=== PATIENT | female | born 1935 | race Caucasian/White ===

== ENCOUNTER 2016-06-19 12:29 | Inpatient (IN) | payer OTHER ==
--- NOTE | 2016-06-19 12:49 | CPEKG ---
Heart Rate: 88 RR Interval: 682 P-R Interval: 152 QRSD Interval: 90 QT Interval: 360 QTC Interval: 436 P [place]: 80 QRS [place]: 59 T Wave [place]: 78 EKG Severity - ABNORMAL ECG - EKG Impression: SINUS RHYTHM EKG Impression: PROBABLE LEFT ATRIAL ABNORMALITY EKG Impression: PROBABLE LEFT VENTRICULAR HYPERTROPHY EKG Impression: ANTERIOR Q WAVES, POSSIBLY DUE TO LVH Electronically Signed By: Ebenezer Javier 19-Jun-2016 14:51:06
--- NOTE | 2016-06-19 12:59 | EDPHY ---
HPI/HX/ROS/PE/MDM Narrative: CHIEF COMPLAINT: Cough HPI: The patient is an 80-year-old female with paroxysmal atrial fibrillation and chronic lung disease. She reports feeling "sick" over last 2 weeks. She recently returned from a trip to [place] involved a long ride in the car. Her normal cough is nonproductive and she has developed mostly clear productive cough. She denies fever or chest pain. She has noticed increased oxygen requirements to her normal to 2L at baseline. She denies leg swelling or pain. REVIEW OF SYSTEMS: Aside from elements discussed in the HPI, a comprehensive 10-point review of systems was reviewed and is negative. PMH: Includes macular degeneration, paroxysmal atrial fibrillation, chronic lung disease. Takes 2 baby aspirin daily. SOCIAL HISTORY: Retired. . Denies alcohol or drug abuse. PHYSICAL EXAM: General:Patient is alert, in no acute distress. ENT:Eyes are normal to inspection. ENT inspection normal. Neck: Normal inspection. Full range of motion. Respiratory:No respiratory distress. Breath sounds diminished bilaterally with bilateral scattered rhonchi. Cardiovascular: Regular rate and rhythm. Strong peripheral pulses. Normal cap refill. Abdomen:The abdomen is nontender to palpation. There are no peritoneal signs. There are normal bowel sounds. Back: Normal to inspection. No tenderness to palpation. Skin: Normal color. No rash. Warm and dry. Extremities: Normal appearance. Full range of motion. Neuro: Oriented x3. Normal motor function. Normal sensory function. (Ebenezer Javier) MDM: Received the patient's CT scan. There are no acute findings but significant fibrosis, bronchiectasis and mucous plugging all chronic changes. No PE. No pneumonia. I discussed this with the patient and her pillar well as in the she had several episodes of atrial fibrillation with heart rate 140s. She is not on any blood thinners. She was told not to take the new generation blood thinners because of her macular degeneration. She is not opposed to taking Coumadin however. She states that she does not usually have atrial fibrillation very often. She is on Rythmol 150 3 times a day as well as diltiazem 24 mg extended release. She is requiring 4 L of oxygen rather than her baseline 2 L. I will give her a breathing treatment. She has taken her albuterol and Advair already today. I have paged the hospitalist service for admission. She sees Dr. Bon Cohen for Cardiology. For p.m. I discussed the case with Dr. Loraine Loving who will admit to the PCU. I will start the patient on heparin. Critical care time spent by me, Dr. Carter exclusive with this patient was 35 minutes, DuoNeb exclusive of procedures. The organ system that was at risk was cardiopulmonary and I gave consultation, heparin, oxygen to prevent worsening of the patient's condition (Carlos Eduardo Carter) This patient presents with increasing cough and oxygen requirement in the setting of known chronic lung disease. Given recent long car trip, PE is in the differential and CXR is difficult to interpret, so I have ordered a CTA of the chest. Patient signed out to Dr. Carter at 1500 pending completion of workup. (Ebenezer Javier) - Data Points Laboratory Results: Laboratory Results 06/19/16 13:05 06/19/16 13:05 06/19/16 06/19/16 13:05 13:05 WBC 7.72 10^3/uL 10^3/uL (3.80-9.50) RBC 3.80 10^6/uL L 10^6/uL (4.18-5.33) Hgb 12.1 g/dL L g/dL (12.6-16.3) Hct 35.6 % L % (38.0-47.0) MCV 93.7 fL fL (81.5-99.8) MCH 31.8 pg pg (27.9-34.1) MCHC 34.0 g/dL g/dL (32.4-36.7) RDW 14.4 % % (11.5-15.2) Plt Count 225 10^3/uL 10^3/uL (150-400) MPV 8.8 fL fL (8.7-11.7) Neut % (Auto) Not Reported Lymph % (Auto) Not Reported [place] % (Auto) Not Reported Eos % (Auto) Not Reported Baso % (Auto) Not Reported Nucleat RBC Rel Count 0.0 % % (0.0-0.2) Absolute Neuts (auto) Not Reported Absolute Lymphs (auto) Not Reported Absolute Monos (auto) Not Reported Absolute Eos (auto) Not Reported Absolute Basos (auto) Not Reported Absolute Nucleated RBC 0.00 10^3/uL 10^3/uL (0-0.01) Immature Gran % Not Reported Seg Neutrophils % 58 % % Band Neutrophils % 12 % % Lymphocytes % 13 % % Monocytes % 13 % % Eosinophils % 1 % % Metamyelocytes % 1 % % Myelocytes % 2 % % Immature Gran # Not Reported Absolute Seg Neuts 4.48 10^/uL 10^/uL (1.70-6.50) Absolute Band Neuts 0.93 10^3/uL H 10^3/uL (0.00-0.70) Absolute Lymphocytes 1.00 10^3/uL 10^3/uL (1.00-3.00) Absolute Monocytes 1.00 10^3/uL H 10^3/uL (0.30-0.80) Absolute Eosinophils 0.08 10^3/uL 10^3/uL (0.03-0.40) Absolute Metamyelocyte 0.08 10^3/mL H 10^3/mL (0.00-0.00) Absolute Myelocytes 0.15 10^3/mL H 10^3/mL (0.00-0.00) RBC/WBC/PLT Morphology NORMAL (NORMAL) Platelet Estimate ADEQUATE (ADEQ) Smear Review By Pending Sodium 132 mEq/L L mEq/L (134-144) Potassium 4.7 mEq/L mEq/L (3.5-5.2) Chloride 86 mEq/L L mEq/L (97-110) Carbon Dioxide 36 mEq/l H mEq/l (22-31) Anion Gap 10 mEq/L mEq/L (8-16) BUN 11 mg/dL mg/dL (7-23) Creatinine 0.4 mg/dL L mg/dL (0.6-1.0) Estimated GFR > 60 Glucose 119 mg/dL H mg/dL (70-100) Calcium 9.2 mg/dL mg/dL (8.5-10.4) Troponin I < 0.012 ng/mL ng/mL (0-0.034) Medications Given: Discontinued Medications Albuterol/Ipratropium (Duoneb) 3 ml IH EDNOW ONE Stop: 06/19/16 15:40 Last Admin: 06/19/16 15:58 Dose: 3 ml Diltiazem HCl (Cardizem Immediate Release) 30 mg PO EDNOW ONE Stop: 06/19/16 15:40 Last Admin: 06/19/16 15:58 Dose: 30 mg General Time Seen by Provider: 06/19/16 12:41 Initial Vital Signs: Initial Vital Signs Temperature (C) 36.8 C 06/19/16 12:48 Heart Rate 88 06/19/16 12:48 Respiratory Rate 12 06/19/16 12:48 Blood Pressure 125/54 H 06/19/16 12:48 O2 Sat (%) 99 06/19/16 12:48 O2 Delivery Mode Nasal Cannula O2 (L/minute) 4 Allergies/Adverse Reactions: No Known Allergies Allergy (Verified 06/19/16 12:51) Home Medications: Medication Instructions Recorded Albuterol [Proventil Inhaler (RX)] 2 puffs IH BID PRN 09/23/11 Aspirin [Aspirin 81mg (OTC)] 162 mg PO HS 09/23/11 C/E/Zn/Cu/OM3/DHA/EPA/LUT/ZEAX 2 each PO DAILY 09/23/11 [Preservision Softgel (OTC)] Calcium Carb W/Vit D [Calcium Carb 1,000 mg PO DAILY 09/23/11 W/Vit D 500 mg (OTC)] Ferrous Sulfate [Ferrous Sulf 325 325 mg PO DAILY 09/23/11 MG (OTC)] Fluticasone/Salmeterol [Advair 1 each IH DAILY PRN 09/23/11 250-50 Diskus] Latanoprost 0.005% [Xalatan 0.005% 1 drop EACHEYE DAILY18 09/23/11 (RX)] Magnesium 250 mg PO DAILY 09/23/11 Multivitamins [Multivitamin (OTC)] 1 each PO DAILY 09/23/11 Propafenone HCl [Rythmol 150mg 150 mg PO Q8H 09/23/11 (RX)] Diltiazem HCl [Diltiazem 24Hr Cd] 240 mg PO DAILY 07/18/12 Omeprazole [Prilosec 20 mg] 20 mg PO DAILY 07/18/12 Aflibercept [Eylea] 2 mg IO AD 06/19/16 Amox Tr/K Clav (Augmentin) 500 mg PO BID 06/19/16 [Augmentin 500/125 MG TAB (*)] Doxycycline Hyclate [Doxycycline 100 mg PO BID 06/19/16 Hyclate] Estrogens,Conjugated [Premarin 1 daniel VAG SUTH 06/19/16 Vaginal (*)] Fluticasone/Salmeter 250/50Mcg 1 puffs IH BID 06/19/16 [Advair 250/50 (*)] Herbals/Supplements -Info Only 1 ea PO DAILY 06/19/16 Hydrocodone Bit/Homatropine 5 - 10 ml PO DAILY PRN 06/19/16 [Hydromet Syrup] Losartan Potassium [Cozaar 50 mg 50 mg PO DAILY 06/19/16 (*)] Sulfamethox/Tmp 800/160 mg 1 tab PO BID 06/19/16 [Bactrim Ds] Vitamin D3 2000 units tab (OTC) 2,000 unit PO DAILY 06/19/16 Zoledronic Acid/Mannitol&Water 5 mg IV Q365D 06/19/16 [Zoledronic Acid 5 mg/100 ml] Departure - Departure Disposition: [facility] Acute Clinical Impression: Chronic obstructive pulmonary disease with acute exacerbation Atrial fibrillation Qualifiers: Atrial fibrillation type: paroxysmal Qualified Code(s): I48.0 - Paroxysmal atrial fibrillation Condition: Fair
[2016-06-19 13:19] LABS: ADD DIFF? YES; ADD MORPH? NO; ADD SCAN? NO; ATYPICAL LYMPHOCYTE FLAG 20 (0-99); FRAGMENT RBC FLAG 0 (0-99); HEMATOCRIT 35.6 % (38.0-47.0); HEMOGLOBIN 12.1 g/dL (12.6-16.3); LEFT SHIFT FLG 30 (0-99); LIPEMIA HEMOLYSIS FLAG 90 (0-99); MEAN CELL HEMOGLOBIN 31.8 pg (27.9-34.1); MEAN CELL VOLUME 93.7 fL (81.5-99.8); MEAN PLATELET VOLUME 8.8 fL (8.7-11.7); PLATELET CLUMPS FLAG 10 (0-99); PLATELET COUNT 225 10^3/uL (150-400); RED CELL DISTRIBUTION WIDTH 14.4 % (11.5-15.2)
[2016-06-19 13:30] LABS: ANION GAP 10 mEq/L (8-16); CALCIUM 9.2 mg/dL (8.5-10.4); CARBON DIOXIDE 36 mEq/l (22-31); CHLORIDE 86 mEq/L (97-110); CREATININE 0.4 mg/dL (0.6-1.0); GLOMERULAR FILTRATION RATE > 60; GLUCOSE 119 mg/dL (70-100); POTASSIUM 4.7 mEq/L (3.5-5.2); SODIUM 132 mEq/L (134-144)
[2016-06-19 13:41] LABS: TROPONIN I < 0.012 ng/mL (0-0.034)
[2016-06-19] MEDS ORDERED: IOPAMIDOL (ISOVUE 370) 100 ML BTL IV ONE (14:15)
[2016-06-19 14:22] LABS: PLATELET ESTIMATE ADEQUATE (ADEQ)
[2016-06-19] MEDS ORDERED: DILTIAZEM 30 MG TAB PO ONE (15:39)
[2016-06-19] MEDS ORDERED: IPRATROPIUM/ALBUTEROL 3 ML DEYVIAL IH ONE (15:39)
[2016-06-19] MEDS ORDERED: HEPARIN/DEXTROSE 500 ML IV ONE (15:59)
[2016-06-19] MEDS ORDERED: HEPARIN 10,000 UNIT/10 ML MDV IVP ONE (15:59)
[2016-06-19] MEDS ORDERED: ALBUTEROL 3 ML DEYVIAL IH PRN (17:01)
[2016-06-19] MEDS ORDERED: ONDANSETRON 4 MG/2 ML VIAL IVP PRN (17:01)
[2016-06-19] MEDS ORDERED: ONDANSETRON DISINTEGRATING 4 MG TAB PO PRN (17:01)
[2016-06-19] MEDS ORDERED: ACETAMINOPHEN 325 MG TAB PO PRN (17:01)
[2016-06-19] MEDS ORDERED: predniSONE 20 MG TAB PO ONE (17:10)
[2016-06-19 17:23] LABS: INR 1.11 (0.83-1.16); PROTIME(PATIENT) 14.2 SEC (12.0-15.0)
[2016-06-19 17:24] LABS: APTT 30.3 SEC (23.0-38.0)
[2016-06-19] MEDS ORDERED: DILTIAZEM 125 MG in D5W 125 ML IV SCH (17:30)
[2016-06-19] MEDS ORDERED: DILTIAZEM 25 MG/5 ML VIAL IVP ONE (17:30)
[2016-06-19 17:32] LABS: TROPONIN I < 0.012 ng/mL (0-0.034)
--- NOTE | 2016-06-19 17:58 | GHP ---
[f rep st] HISTORY AND PHYSICAL DATE OF ADMISSION: 06/19/2016 CHIEF COMPLAINT: Worsening cough and hypoxemia. HISTORY OF PRESENT ILLNESS: The patient is an 80-year-old female, with a history of chronic hypoxemia on 2 L of oxygen at baseline, followed by Dr. Bhaskar Barfield for a history of pulmonary fibrosis, bronchiectasis and mycobacterium avium infection. She has been on a rotating antibiotic regimen and spent the last month in [place]. While she was there her developed an acute bronchitis illness. She then began feeling more fatigued and developed an increased productive cough. She denies fevers. She denies chest pain. Her shortness of breath is slightly worse than her baseline. She has no heart palpitations upon arrival to the emergency department, though she has been in and out of rapid atrial fibrillation. She denies any history of exposure to mouse droppings, and remained indoors most of her time in [place] due to extreme heat. She was ruled out for pulmonary embolism in the emergency department with a CT pulmonary angiogram. She is on 4 L of oxygen due to her increased oxygen needs, productive cough, and rapid atrial fibrillation. She is admitted to the hospital for further management. PAST MEDICAL HISTORY: 1. Bronchiectasis. 2. History of Mycobacterium avium intracellulare. followed by Dr. Bhaskar Barfield. 3. Pulmonary fibrosis. 4. Pulmonary hypertension. 5. Hypertension. 6. Hyperlipidemia. 7. Atrial fibrillation. 8. Macular degeneration. 9. Hiatal hernia. PAST SURGICAL HISTORY: Appendectomy, hernia repair, hysterectomy, tonsillectomy. FAMILY HISTORY: Positive for blood clots, atrial fibrillation, breast cancer, and coronary artery disease. SOCIAL HISTORY: The patient lives with her . They spent the month of May in [place] and returned last night. She denies alcohol or tobacco use. She is currently independent in her daily activities, though with her decreased energy these have become more difficult recently. REVIEW OF SYSTEMS: A 10-point review of systems is performed, and is negative except as per HPI. OBJECTIVE: VITAL SIGNS: Temperature is 36.8, blood pressure 125/54, heart rate 88, respiratory rate 12 to 20, she is 99% on 4 L of oxygen. Her heart rate has ranged from the 80s to the 160s, in and out of atrial fibrillation. GENERAL: The patient is awake, alert and oriented, in no acute distress. HEENT : Head is atraumatic, normocephalic. Pupils are equal, round and reactive to light, extraocular muscles are intact, oropharynx is clear. She has poor dentition. Mucous membranes are moist. NECK: Supple, there is no JVD. HEART : Has an irregularly irregular rhythm. LUNGS: Reveal scattered crackles on the left side with bilateral diffuse expiratory wheezes. ABDOMEN: Soft, nondistended, nontender, with normoactive bowel sounds. EXTREMITIES: Without cyanosis, clubbing, or edema. Warm, well perfused. NEUROLOGIC: Grossly nonfocal. LABORATORY DATA: 1. CBC reveals a normal white count of 7.7, hemoglobin of 12.1, INR is pending. Basic metabolic panel reveals a sodium of 132, potassium 4.7, chloride 86, CO2 of 36, creatinine is 0.4, glucose 119, troponin is negative. NT proBNP is pending. 2. A chest x-ray shows little change from prior imaging, with no obvious acute pneumonia. Her chest x-ray is personally interpreted by myself, and I reviewed the radiology report. 3. A CT pulmonary angiogram is negative for pulmonary embolism. There is a stable-appearing bronchiectasis, as well as chronic consolidation and atelectasis with a thick wall honeycomb pattern. 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 4. EKG upon arrival to the emergency department shows normal sinus rhythm with a heart rate of 88, and anterior Q-waves. A repeat EKG, due to current rapid atrial fibrillation, is pending. ASSESSMENT AND PLAN: The patient is an 80-year-old female with a history of chronic hypoxemic respiratory failure due to underlying lung disease, who is admitted to the hospital with worsening hypoxemia and atrial fibrillation. 1. Acute on chronic hypoxemic respiratory failure. Requiring 4 L from her baseline of 2 LPM. No fevers or leukocytosis to suggest an acute bacterial process. Query a viral syndrome causing an acute exacerbation of bronchiectasis , versus worsening Mycobacterium illness. Check flu swab, as well as a respiratory viral panel. Given her recent travel in [place] I considered Hantavirus, though she has no real exposure to mouse droppings. Will check Coccidioides Ab. Will give nebulizers and oral prednisone, given her diffuse expiratory wheezes. Recommend pulmonary consult tomorrow. Given the mucus plugging seen on her CT scan I will add inhaled Mucomyst, as well as guaifenesin. She is currently treated with rotating antibiotic regimen including Augmentin, Bactrim and doxycycline. We will give oral doxycycline for now. 2. Atrial fibrillation with rapid ventricular rate. She has been in and out of rapid atrial fibrillation in the ED, and had a sustained heart rate in the 150s during my interview. She is asymptomatic. I do not see a recent echocardiogram, so we will obtain an echo. She has a CHADS2-VASc score of at least 4 her based on her age, gender, and hypertension. We will anticoagulate with a heparin drip for now. Her initial troponin is negative, will trend her troponin. She is chest pain-free. We will also continue her Rythmol. She is given an IV diltiazem bolus, and we will place her on a drip for rate control. Consider addition of digoxin if this is not adequately controlling her rate. 3. Hypertension. Her blood pressure is currently adequately controlled. We will continue her outpatient medications once her medication reconciliation is completed. 4. Hyponatremia. This is mild, and is not far from her baseline in the low 130s. She appears a bit volume depleted. We will check a urine sodium and a urine osmolality for further evaluation, and I will give some very gentle IVF's overnight, as I do not want to hasten heart failure in the setting of rapid atrial fibrillation. 5. Deep venous thrombosis prophylaxis, patient is treated with heparin drip as above. 6. Code status. I discussed code status with the patient, and she is full code for now. DISPOSITION: Patient is admitted to inpatient status, as she will likely require greater than 48 hours hospitalization for ongoing management of her acute on chronic hypoxemic respiratory failure and rapid atrial fibrillation. /[id number]/MODL MTDD
[2016-06-19] MEDS: ACETYLCYSTEINE 10% 30 ML VIAL IH SCH ×2 (18:24→21:38)
[2016-06-19] MEDS: HEPARIN/DEXTROSE 500 ML IV SCH (18:28)
--- NOTE | 2016-06-19 18:51 | CPEKG ---
Heart Rate: 120 RR Interval: 500 QRSD Interval: 88 QT Interval: 336 QTC Interval: 475 QRS [place]: 64 T Wave [place]: 76 EKG Severity - ABNORMAL ECG - EKG Impression: ATRIAL FIBRILLATION--NEW SINCE JUNE 19, 2016, 12:48 EKG Impression: CONSIDER LEFT VENTRICULAR HYPERTROPHY EKG Impression: ANTERIOR Q WAVES, POSSIBLY DUE TO LVH Electronically Signed By: Dwaine Dale 20-Jun-2016 08:25:44
[2016-06-19] MEDS ORDERED: NON-FORMULARY NEW DRUG (Aflibercept [Eylea] 2 MG) IO SCH ×2 (19:00)
[2016-06-19] MEDS: NS 1,000 ML IV SCH (19:04)
[2016-06-19] MEDS: guaiFENesin 600 MG TAB.ER PO SCH (20:08)
[2016-06-19] MEDS: PROPAFENONE HCL 150 MG TAB PO SCH (20:08)
[2016-06-19] MEDS: ASPIRIN 81 MG CHEWABLE TAB PO SCH (20:10)
[2016-06-19] MEDS: DOXYCYCLINE HYCLATE 100 MG CAP/TAB PO SCH (20:10)
[2016-06-19] MEDS: HYDROCODONE/HOMATROPINE HYCODAN 5 ML UDL PO PRN (21:14)
[2016-06-19] MEDS: IPRATROPIUM/ALBUTEROL 3 ML DEYVIAL IH SCH (21:35)
[2016-06-19] MEDS: FLUTICASONE/SALMETER 250/50MCG DISKUS IH SCH (21:40)
[2016-06-20] MEDS: PROPAFENONE HCL 150 MG TAB PO SCH ×3 (03:08→12:34)
[2016-06-20] MEDS: ACETYLCYSTEINE 10% 30 ML VIAL IH SCH ×4 (04:54→21:16)
[2016-06-20] MEDS: IPRATROPIUM/ALBUTEROL 3 ML DEYVIAL IH SCH ×4 (04:54→21:16)
[2016-06-20 06:05] LABS: ADD DIFF? YES; ADD MORPH? NO; ADD SCAN? NO; ATYPICAL LYMPHOCYTE FLAG 20 (0-99); FRAGMENT RBC FLAG 0 (0-99); HEMOGLOBIN 11.1 g/dL (12.6-16.3); LEFT SHIFT FLG 30 (0-99); LIPEMIA HEMOLYSIS FLAG 80 (0-99); MEAN CELL HEMOGLOBIN 31.5 pg (27.9-34.1); MEAN CELL HEMOGLOBIN CONCENTR. 33.6 g/dL (32.4-36.7); MEAN CELL VOLUME 93.8 fL (81.5-99.8); MEAN PLATELET VOLUME 8.3 fL (8.7-11.7); PLATELET CLUMPS FLAG 0 (0-99); PLATELET COUNT 184 10^3/uL (150-400); RED BLOOD CELL COUNT 3.52 10^6/uL (4.18-5.33); RED CELL DISTRIBUTION WIDTH 14.3 % (11.5-15.2)
[2016-06-20 06:52] LABS: PLATELET ESTIMATE ADEQUATE (ADEQ)
[2016-06-20 06:56] LABS: ANION GAP 10 mEq/L (8-16); CALCIUM 8.4 mg/dL (8.5-10.4); CARBON DIOXIDE 32 mEq/l (22-31); CHLORIDE 88 mEq/L (97-110); CREATININE 0.4 mg/dL (0.6-1.0); GLOMERULAR FILTRATION RATE > 60; GLUCOSE 157 mg/dL (70-100); POTASSIUM 4.7 mEq/L (3.5-5.2); SODIUM 130 mEq/L (134-144)
[2016-06-20] MEDS: guaiFENesin 600 MG TAB.ER PO SCH ×2 (08:18→19:58)
[2016-06-20] MEDS: FERROUS SULFATE 325 MG TAB PO SCH (08:18)
[2016-06-20] MEDS: MAGNESIUM OXIDE 400 MG TAB PO SCH (08:19)
[2016-06-20] MEDS: LOSARTAN POTASSIUM 50 MG TAB PO SCH (08:19)
[2016-06-20] MEDS: DOXYCYCLINE HYCLATE 100 MG CAP/TAB PO SCH (08:19)
[2016-06-20] MEDS: PANTOPRAZOLE SODIUM 40 MG TAB PO SCH (08:19)
[2016-06-20] MEDS: DILTIAZEM XR 240 MG CAP PO SCH (08:21)
[2016-06-20] MEDS ORDERED: NON-FORMULARY NEW DRUG (Diltiazem Hcl [Diltiazem 24hr Cd] 240 MG) PO SCH (09:00)
[2016-06-20] MEDS ORDERED: NON-FORMULARY NEW DRUG (Omeprazole [Prilosec 20 Mg] 20 MG) PO SCH (09:00)
[2016-06-20] MEDS ORDERED: MAGNESIUM 250 MG PO SCH (09:00)
--- NOTE | 2016-06-20 10:24 | ECHO ---
[id number] + + [address] : : [place] [address] : : [phone] + Adult Echocardiographic Report + -----+ :Name: MAHAMED ART PStudy Date: 06/20/2016 07:50 AM : : Hospital Admission Number: [id number] Location : 217: :: 1935 Gender: Female Height: 372 in : :Age: 80 yrs Race: WH : :Reason For Study: Atrial fibrillation/lung disease : + -----+ MMode/2D Measurements \T\ Calculations IVSd: 0.97 cm LVIDd: 4.1 cm FS: 49.9 % Ao root diam: LVPWd: 1.0 cm LVIDs: 2.1 cm EDV(Teich): 3.4 cm 76.3 ml LA dimension: ESV(Teich): 3.7 cm 14.1 ml EF(Teich): 81.6 % LVLd ap4: 6.6 cm SV(MOD-sp4): EDV(MOD-sp4): 34.0 ml 44.0 ml LVLs ap4: 5.1 cm ESV(MOD-sp4): 10.0 ml EF(MOD-sp4): 77.3 % Normal Measurement Values: + + :LVIDd (3.5-5.7cm) IVSd (0.6-1.1cm) LVPWd (0.6-1.1cm) Aortic Root (2.0-3.7cm)Left Atrium (1.5-4.0cm): :LV Vol(d) (76-115ml) LV Vol(s) (29-48ml) Ejec Fraction (50-65%)PV Cong (0.6- 1.2m/s) TV Cong (0.4-1.0m/s) : :MV E Cong (0.8-1.0m/s)MV A Cong (0.3-1.0m/s)LVOT Cong (0.7-1.2m/s) Asc Ao Cong ( 0.9-1.8m/s) : + + Doppler Measurements \T\ Calculations MV E max cong: 121.9 cm/sec Ao V2 max: 125.3 cm/sec TR max cong: 309.1 cm/sec Ao max P.3 mmHg TR max P.2 mmHg RAP systole: 10.0 mmHg RVSP(TR): 48.2 mmHg Left Ventricle The left ventricle is normal in size. There is mild concentric left ventricular hypertrophy. Left ventricular systolic function is normal. Ejection Fraction = 70-75%. No regional wall motion abnormalities noted. Right Ventricle The right ventricle is normal in size and function. Atria The left atrium is severely dilated. The right atrium is moderate to severely dilated. Mitral Valve Calcified posterior mitral leaflet. There is mild mitral regurgitation. Tricuspid Valve Normal tricuspid valve. There is mild tricuspid regurgitation. Right ventricular systolic pressure is 45-50mmHg. Aortic Valve The aortic valve is trileaflet. The aortic valve opens well. Mildly calcified NCC of the aortic valve. There is no aortic stenosis. Mild aortic regurgitation. Pulmonic Valve The pulmonic valve is not well visualized. Mild pulmonic valvular regurgitation. Great Vessels The aortic root is normal size. Pericardium/Pleural There is no pericardial effusion. There is a fat pad seen. Conclusion A complete two-dimensional transthoracic echocardiogram was performed (2D, M-mode, Doppler and color flow Doppler). This was essentially a normal study. The study was technically adequate. This degree of valvular regurgitation is within normal limits. (1) Left ventricular systolic ejection fraction was normal (>70%) - normal wall motion (2) Mild, concentric left ventricular hypertrophy (3) Diastolic dysfunction was present (4) Normal right ventricular size and function (5) Severe left atrial dilation with moderate to severe right atrial dilation (6) Mild mitral regurgitation with calcification of the posterior leaflet - no stenosis (7) Trileaflet aortic valve with sclerosis, but no stenosis (NCC leaflet moreso). Mild aortic insufficiency was noted (8) Mild tricuspid regurgitation - RVSP was estimated to be 45-50 mm Hg (9) Poor visualization of the pulmonic valve with mild insufficiency by doppler (10) No comparison echocardiograms Final Reading Physician: Pranav Lucia signed on 06/20/2016 10:23 AM Ordering Physician: Loraine Loving Performed By: Maylin Fontanez RDCS
[2016-06-20] MEDS: FLUTICASONE/SALMETER 250/50MCG DISKUS IH SCH ×2 (10:50→21:18)
--- NOTE | 2016-06-20 11:38 | CPEKG ---
Heart Rate: 49 RR Interval: 1224 QRSD Interval: 118 QT Interval: 476 QTC Interval: 430 QRS [place]: -72 T Wave [place]: 77 EKG Severity - ABNORMAL ECG - EKG Impression: ATRIAL FIBRILLATION, V-RATE 41-56 EKG Impression: INCOMPLETE LEFT BUNDLE BRANCH BLOCK EKG Impression: PROBABLE LEFT VENTRICULAR HYPERTROPHY EKG Impression: SLOW VENTRICULAR RESPONSE Electronically Signed By: Evan Baugh 23-Jun-2016 09:02:35
--- NOTE | 2016-06-20 11:55 | HOSPPROG ---
Hospitalist Progress Note Assessment/Plan: 80-year-old woman with a history of bronchiectasis and SHONDA with chronic respiratory failure followed by Dr. Bhaskar Barfield is admitted with increasing productive cough and shortness of breath. CT angiogram was done which showed no PE but possible increased reticular nodular densities. She was admitted yesterday and has not improved significantly over night. She is concerned about her antibiotics. She typically takes Augmentin week 1, Bactrim week 2 and doxycycline week 3 with no antibiotics week 4. # cough with acute on chronic respiratory failure. Possibly new CT findings on her chronic bronchiectasis and SHONDA infection. She is requiring increased oxygen at 4.5 L. * Pulmonary consult * Will continue doxycycline for now although defer to pulmonology. # AFib with rapid ventricular response. Patient does have a history of previous AFib and is followed by Dr. Cohen. She typically is anticoagulated with 2 baby aspirins and is in sinus rhythm. Echocardiogram was done and was fairly unremarkable. She has been in an out of AFib on telemetry. * Continue heparin for now, in case she needs a bronchoscopy * Currently rate controlled with IV diltiazem * Will have Cardiology see the patient # chronic AAYNNA. Followed by Dr. Bhaskar Barfield as an outpatient, continue her usual antibiotic regimen and last changed by pulmonology. # hyponatremia likely secondary to her pulmonary infection, will follow # hypertension: Well controlled will continue to follow # pulmonary fibrosis # macular degeneration Subjective: Patient new to [place], chart reviewed. Discussed with Dr. Nelson Busby. Patient continues to have productive cough she does not feel significantly improved since admission. She is requiring more oxygen than her usual 2 L home Objective: Vital Signs Temp Pulse Resp BP Pulse Ox 36.8 C 110 H 18 123/85 H 91 L 06/20/16 07:50 06/20/16 07:50 06/20/16 07:50 06/20/16 10:46 06/20/16 07:50 Laboratory Results 06/20/16 05:55 06/20/16 05:55 06/19/16 06/20/16 06/21/16 05:59 05:59 05:59 Intake Total 1291.6 Output Total 600 600 Balance 691.6 -600 PT 14.2 SEC (12.0-15.0) 06/19/16 16:49 INR 1.11 (0.83-1.16) 06/19/16 16:49 - Physical Exam Constitutional: no apparent distress, not in pain, chronically ill appearing Eyes: PERRL, anicteric sclera, EOMI Ears, Nose, Mouth, Throat: moist mucous membranes, hearing normal, ears appear normal Cardiovascular: regular rate and rhythym, No edema Respiratory: no respiratory distress, inspiratory crackles, No expiratory wheeze Gastrointestinal: normoactive bowel sounds, soft, non-tender abdomen, no palpable masses Genitourinary: no bladder fullness Skin: warm, normal color Neurologic: AAOx3, No facial droop Psychiatric: interacting appropriately, not anxious, not encephalopathic ICD10 Worksheet Patient Problems: Problems Problem Status Onset Atrial fibrillation Acute Chronic obstructive pulmonary disease with acute exacerbation Acute
--- NOTE | 2016-06-20 11:58 | SOAPPROG ---
SOAP Progress Note Assessment/Plan: Assessment: Cardiology consultation performed and dictated. Asked to see pt for afib with RVR in setting of hypoxemia from chronic respiratory problems. 80 y/o woman with PAF since 2001 on PO Propafenone 150mg TID. Had cardiolite stress test 10/31 showed normal LVEF and no ischemia. Echo both in 2015 and yesterday similar with LVEF 73%, mild concentric LVH, severe bi-atrial enlargement, mild AI/MR/TR and estimated PAS 48mmHg. She has O2-lung issues with pulmonary fibrosis, bronchiectasis, and atypical mycobacterium avia infection. She has frequent nose bleeds on her O2 and previous remote hemoptysis. She has not felt well for 2-3 wks with weakness, tiredness, dry cough and occasional sense of heart racing. Denies CP, syncope, TIAs or PND. Admitted last night for lung issues. Telemetry showed afib then sinus and now afib with RVR. Troponin negative and no chest pressure currently. IMP: PAF I think exacerbated by her hypoxemia and lung exacerbation. No signs of MS or CHF. As the lungs healed hopefully easier to keep in NSR. She is a high risk pt for anticoagulation with risk of hemoptysis and epistaxis and although high CHADs score I think risk outweighs benefit of AC. REC: 1)change short acting Propanone to Procan SR 325mg PO BID now. 2)continue Dilt gtt while in afib with RVR. 3)no coumadin, Eliquis or other NOACs. 4)treat underlying lung exacerbation. 5)continue tele 6)will follow with you. Thanks. 06/20/16 11:51 Objective: Vital Signs Temp Pulse Resp BP Pulse Ox 36.8 C 110 H 18 123/85 H 91 L 06/20/16 07:50 06/20/16 07:50 06/20/16 07:50 06/20/16 10:46 06/20/16 07:50 Laboratory Results 06/20/16 05:55 06/20/16 05:55 06/19/16 06/20/16 06/21/16 05:59 05:59 05:59 Intake Total 1291.6 Output Total 600 600 Balance 691.6 -600 PT 14.2 SEC (12.0-15.0) 06/19/16 16:49 INR 1.11 (0.83-1.16) 06/19/16 16:49 ICD10 Worksheet Patient Problems: Problems Problem Status Onset Atrial fibrillation Acute Chronic obstructive pulmonary disease with acute exacerbation Acute
[2016-06-20] MEDS: PROPAFENONE HCL SR 325 MG CAP PO SCH ×2 (12:32→20:01)
--- NOTE | 2016-06-20 12:55 | GCON ---
[f rep st] CONSULTATION NEW CARDIOLOGY CONSULT REASON FOR CONSULTATION: Evaluate woman with atrial fibrillation with rapid ventricular response, i n the setting of hypoxemia and acute on chronic lung problems. I was asked by Dr. Brinda Gonzalez to consult for the above reasons. HISTORY OF PRESENT ILLNESS: The patient is an 80-year-old woman with paroxysmal atrial fibrillation dating back to 2001. She has been on p.o. propafenone 150 mg three times daily since then. She ruiz d a Cardiolite stress test in October 2011, which demonstrated normal LV function with no ischemia. An echo in 2014 and again during this hospitalization demonstrates an LVEF of 73%, with mild concent elbert left ventricular hypertrophy and severe biatrial enlargement with mild aortic, mitral, and tricu spid insufficiency, with an estimated PA systolic pressure of 48 mmHg. She has chronic O2 dependent lung problems with pulmonary fibrosis, bronchiectasis and atypical Mycobacterium avium infection. She lives half the year in [place], [place], and was there until about 2 weeks ago. She reports she has not been feeling well for the last 2-3 weeks with tiredness, fatigue, dry cough, and occasional heart racing. She denies chest pain, syncope, TIA symptoms, or PND. She was admitted to the hospital last night on the hospitalist service for worsening hypoxemia. She has been on albuterol nebulizer treatments, antibiotics and steroids. Initially she was in atrial fibrillation and then had moments of sinus rhythm on telemetry, and is back in atrial fibrillation w ith rapid ventricular response. She denies chest pain. Of note, she gets significant nosebleeds about every 2 weeks on her home oxygen, and had a remote hi story of hemoptysis. She denies TIA or CVA symptoms. PAST MEDICAL HISTORY: O2 dependent lung problems, pulmonary fibrosis, bronchiectasis with remote he moptysis, atypical Mycobacterium infection, hypertension, paroxysmal atrial fibrillation since 2001 and frequent nosebleeds. PAST SURGICAL HISTORY: Appendectomy and hysterectomy. CURRENT MEDICATIONS: Albuterol nebulizer treatments q.6 hours, aspirin 162 mg daily, diltiazem drip , diltiazem CD 240 mg per day, doxycycline 100 mg twice daily, ferrous sulfate 325 mg per day, hepar in drip, losartan 50 mg per day, propafenone 150 mg p.o. three times daily and Protonix 40 mg per da y. ALLERGIES: No known drug allergies. SOCIAL HISTORY: The patient is . She denies tobacco or alcohol use. She lives half the yea r in [place], [place], and half the year here in [place]. FAMILY HISTORY: Positive for premature coronary artery disease. REVIEW OF SYSTEMS: The patient reports no recent fevers, chills, GI bleed symptoms such as hemateme sis, melena, or bright red blood per rectum. The rest of the 10-point review of systems is negative . PHYSICAL EXAM: VITAL SIGNS: Afebrile. Pulse 110 and irregularly irregular, blood pressure 123/85, respirations 24. Weight 57.0 kg. GENERAL: An older, thin-appearing woman, in no acute distress w ithout chest pain or using accessory respiratory muscles. EYES: Pupils equal and reactive to light . ENT: Oral mucosa with no cyanosis. NECK: Jugular venous pressure to 7 cm. Carotid pulses 2+ b ilaterally with no obvious bruits. No nuchal rigidity. 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 HEART: Irregularly irregular rhythm. Distant heart sounds. A 1/6 nonradiating systolic murmur. No S3. ABDOMEN: Soft and nontender. No hepatosplenomegaly. No guarding or rebo und. EXTREMITIES: 2+ peripheral pulses, including femoral and pedal pulses. No edema noted. MUSC ULOSKELETAL: Mild kyphosis. NEURO: Normal affect and mood. SKIN: No bleeding or cyanosis. LABS: White count 8.2, hematocrit 33, platelets 184,000, MCV 94. INR 1.11. Sodium 130, potassium 4.7, chloride 88, bicarb 32, BUN 12, creatinine 0.4, glucose 154. Troponin negative. NT BNP level 1030. IMAGING: EKG: Atrial fibrillation with no acute ST elevation or depression. IMPRESSION: An 80-year-old woman with chronic significant lung problems, paroxysmal atrial fibrilla tion and normal left ventricular function. Overall, I think her atrial fibrillation is because of her worsening hypoxemia and acute lung proble ms. I do not think she is having an VA and she appears euvolemic with no evidence of heart failure. I discussed with her the risks and benefits of anticoagulation and, with her history of bronchiectas is, hemoptysis and nosebleeds, I think the risks outweigh the benefits for anticoagulation with Coum shelli or one of the no ac agents, even though she has an elevated CHAD2S score. PLAN: 1. Will discontinue propafenone three times daily and start on Procan SR 325 mg p.o. twice daily. 2. Rest of medications without change. 3. Would not add Coumadin, Eliquis or one of the other anticoagulation medicines, and probably send home on aspirin alone. 4. Hopefully as her lung problems become treated and stabilized, she will convert back to sinus rhy thm and stay there chronically. 5. Would keep on the diltiazem drip until she is converted back to sinus rhythm and then restart he r p.o. diltiazem 240 mg tablet. Thank you for allowing me to participate in the care of this patient. I will follow along closely w jacob bolanos during her hospitalization. /[id number]/MODL
[2016-06-20] MEDS: HEPARIN 10,000 UNIT/10 ML MDV IVP PRN ×2 (14:43→21:51)
[2016-06-20] MEDS: AMOXICILLIN/CLAVULANATE POT 875/125 MG TAB PO SCH ×2 (15:13→21:53)
[2016-06-20] MEDS: NS 1,000 ML IV SCH (15:13)
--- NOTE | 2016-06-20 15:26 | GCON ---
[f rep st] CONSULTATION A PULMONARY CONSULTATION. DATE OF CONSULTATION: 06/20/2016 REFERRING PHYSICIAN: Brinda Gonzalez MD REASON FOR REFERRAL: Evaluation and management of cough and bronchiectasis with dyspnea history. HISTORY OF PRESENT ILLNESS: The patient is an 80-year-old woman with a longstanding history of extensive bronchiectasis followed by Dr. Barfield, who is down in [place], when a little over a week ago she began to develop increased shortness of breath and her normally nonproductive cough started to become productive. She was currently finishing a course of rotating antibiotics with doxycycline at the time. She was seen in an urgent care center, and a chest x- ray was done, which showed no change. It was felt that some of her symptoms could be due to paroxysmal atrial fibrillation. She was discharged with no change in treatment. Over the next week or so, she initially felt better but then had a slight increase in her symptoms. She returned from [place] 2 days ago and felt worse, with increased shortness of breath and productive cough. She denies any fever. She was admitted to [facility] yesterday with these symptoms of worsening cough and hypoxemia. She has been found to have paroxysmal atrial fibrillation and episode seemed to be associated with increased dyspnea. She reports that since hospitalization she is feeling a bit better. She was started on doxycycline. PAST MEDICAL HISTORY: 1. Bronchiectasis. This is fairly extensive. The patient has had a prior history of MARIA EUGENIA infection that was treated. She is chronically on oxygen, as well as rotating antibiotics with Augmentin, Bactrim, and doxycycline, as well as a week off antibiotics during the last week of the month. She has not had any recent exacerbations. 2. Pulmonary fibrosis. 3. Pulmonary hypertension. 4. Hypertension. 5. Paroxysmal atrial fibrillation. 6. Macular degeneration. MEDICATIONS: Propafenone, aspirin, albuterol, Advair, omeprazole, diltiazem, losartan, doxycycline, rotating antibiotics with Augmentin, Bactrim, and doxycycline. ALLERGIES: None. SOCIAL HISTORY: The patient lives with her . She lives independently. She denies smoking or alcohol. FAMILY HISTORY: Positive for blood clots and atrial fibrillation. REVIEW OF SYSTEMS: A 10-point review of systems adds nothing to the History of Present Illness. PHYSICAL EXAMINATION: GENERAL: The patient is awake, alert, and in no acute distress. VITAL SIGNS: Blood pressure is 112/72. Her heart rate is 120 and regular. Oxygen saturations are 96% on 3 L. She is afebrile during the hospitalization. HEENT: Normocephalic and atraumatic. No icterus. NECK: No JVD. Trachea is midline. CHEST: She has some basilar rales. CARDIAC: Regular tachycardia without murmur. ABDOMEN: Soft, nontender. Bowel sounds are present. EXTREMITIES: No clubbing, cyanosis, or edema. NEURO: The patient is awake, alert. She has no focal weakness. LABORATORY: A white blood count is 8.2. A hemoglobin is 11.1. Sodium is 130. Bicarbonate level is 32. BUN is 12 with a creatinine of 0.4. Glucose is 157. A BNP is 1030. Influenza swab is negative. A sputum Gram stain shows rare gram-negative rods, and a culture is pending. TEST DATA: A chest x-ray shows fairly extensive bronchiectasis with chronic fibrotic changes and volume loss. There are no focal infiltrates and minimal mucus plugging. Images reviewed. ASSESSMENT: 1. Bronchiectasis. The patient is having an exacerbation, with increased symptoms of productive cough, and shortness of breath. The shortness of breath could be in part due to her paroxysmal atrial fibrillation. She has been treated empirically with doxycycline. Her oxygen needs are slightly higher than baseline but stable during the hospitalization so far. 2. Paroxysmal atrial fibrillation. This has been managed with propafenone. The patient has been seen by Dr. Crocker, who has recommended procainamide. RECOMMENDATIONS: 1. Stop doxycycline and change to Augmentin, which she has not been on in several weeks. Await sputum cultures. 2. Atrial fibrillation management per Dr. Crocker. /[id number]/MODL MTDD
[2016-06-20] MEDS: LATANOPROST 0.005% 2.5 ML OPHT DROPS EACHEYE SCH (18:32)
[2016-06-20] MEDS: HEPARIN/DEXTROSE 500 ML IV SCH (18:58)
[2016-06-20] MEDS: DOCUSATE SODIUM 100 MG CAP PO SCH (19:57)
[2016-06-20] MEDS: ASPIRIN 81 MG CHEWABLE TAB PO SCH (19:58)
[2016-06-20] MEDS: HYDROCODONE/HOMATROPINE HYCODAN 5 ML UDL PO PRN (21:08)
[2016-06-21 04:08] LABS: ADD DIFF? YES; ADD MORPH? NO; ADD SCAN? NO; ATYPICAL LYMPHOCYTE FLAG 30 (0-99); FRAGMENT RBC FLAG 0 (0-99); HEMATOCRIT 28.4 % (38.0-47.0); HEMOGLOBIN 9.4 g/dL (12.6-16.3); LEFT SHIFT FLG 30 (0-99); LIPEMIA HEMOLYSIS FLAG 80 (0-99); MEAN CELL HEMOGLOBIN 31.6 pg (27.9-34.1); MEAN CELL HEMOGLOBIN CONCENTR. 33.1 g/dL (32.4-36.7); MEAN CELL VOLUME 95.6 fL (81.5-99.8); MEAN PLATELET VOLUME 8.6 fL (8.7-11.7); PLATELET CLUMPS FLAG 10 (0-99); PLATELET COUNT 199 10^3/uL (150-400); RED BLOOD CELL COUNT 2.97 10^6/uL (4.18-5.33); RED CELL DISTRIBUTION WIDTH 14.5 % (11.5-15.2)
[2016-06-21 05:00] LABS: ANION GAP 5 mEq/L (8-16); CALCIUM 8.2 mg/dL (8.5-10.4); CARBON DIOXIDE 33 mEq/l (22-31); CHLORIDE 93 mEq/L (97-110); CREATININE 0.4 mg/dL (0.6-1.0); GLOMERULAR FILTRATION RATE > 60; GLUCOSE 117 mg/dL (70-100); POTASSIUM 4.5 mEq/L (3.5-5.2); SODIUM 131 mEq/L (134-144)
[2016-06-21 05:03] LABS: HYPOCHROMIA 1+; PLATELET ESTIMATE ADEQUATE (ADEQ)
[2016-06-21] MEDS: IPRATROPIUM/ALBUTEROL 3 ML DEYVIAL IH SCH ×4 (05:09→20:30)
[2016-06-21] MEDS: ACETYLCYSTEINE 10% 30 ML VIAL IH SCH ×4 (05:10→20:30)
--- NOTE | 2016-06-21 05:23 | CPEKG ---
Heart Rate: 73 RR Interval: 822 P-R Interval: 156 QRSD Interval: 98 QT Interval: 392 QTC Interval: 432 P [place]: 72 QRS [place]: 69 T Wave [place]: 73 EKG Severity - ABNORMAL ECG - EKG Impression: SINUS RHYTHM EKG Impression: ANTERIOR INFARCT, AGE INDETERMINATE EKG Impression: Probable left atrial abnormality EKG Impression: Resolution of atrial fibrillation since June 20, 2016 Electronically Signed By: Dwaine Dale 21-Jun-2016 12:25:11
[2016-06-21] MEDS: FLUTICASONE/SALMETER 250/50MCG DISKUS IH SCH ×2 (08:53→20:30)
--- NOTE | 2016-06-21 09:04 | SOAPPROG ---
SOAP Progress Note Assessment/Plan: Assessment: 80 y/o woman with PAF since 2001 on PO Propafenone 150mg TID. Had cardiolite stress test 10/31 showed normal LVEF and no ischemia. Echo both in 2015 and yesterday similar with LVEF 73%, mild concentric LVH, severe bi-atrial enlargement, mild AI/MR/TR and estimated PAS 48mmHg. She has O2-lung issues with pulmonary fibrosis, bronchiectasis, and atypical mycobacterium avia infection. She has frequent nose bleeds on her O2 and previous remote hemoptysis. She has not felt well for 2-3 wks with weakness, tiredness, dry cough and occasional sense of heart racing. Denies CP, syncope, TIAs or PND. Admitted several nights ago for lung issues. Telemetry showed afib with RVR but now back in NSR. Troponin negative and no chest pressure currently. IMP: PAF I think exacerbated by her hypoxemia and lung exacerbation. No signs of PR or CHF. As the lungs healed hopefully easier to keep in NSR. She is a high risk pt for anticoagulation with risk of hemoptysis and epistaxis and although high CHADs score I think risk outweighs benefit of AC. REC: 1)change short acting Propanone to long acting Propafenone SR 325mg PO BID now. 2)increase Dilt CD to 360mg PO qam. 3)discontinue IV heparin and Dilt gtt(s) 4)Lovenox 40mg SQ daily 5)continue treatments for bronchietasis flare. 06/21/16 09:01 Subjective: overall feels a little better than yesterday. No longer having her heart racing. Still with productive cough. Denies CP or near syncope. Objective: Vital Signs Temp Pulse Resp BP Pulse Ox 36.8 C 80 16 140/62 H 91 L 06/21/16 08:00 06/21/16 08:57 06/21/16 08:57 06/21/16 08:00 06/21/16 08:57 Microbiology 06/20/16 10:40 - Final Sputum, Expectorated Laboratory Results 06/21/16 03:54 06/21/16 03:54 06/20/16 06/21/16 06/22/16 05:59 05:59 05:59 Intake Total 1291.6 1600 Output Total 600 2400 Balance 691.6 -800 PT 14.2 SEC (12.0-15.0) 06/19/16 16:49 INR 1.11 (0.83-1.16) 06/19/16 16:49 Physical Exam - Physical Exam General Appearance: alert, thin EENT: normal ENT inspection Neck: full range of motion Respiratory: crackles (throughout), wheezing Cardiac/Chest: regular rate, rhythm, systolic murmur (1/6 SHA heard), No gallop , No JVD Peripheral Pulses: 2+: carotid (R), carotid (L), femoral (R), femoral (L), dorsalis-pedis (R), dorsalis-pedis (L) Abdomen: non-tender, No guarding, No ascites Skin: warm/dry Extremities: non-tender, No pedal edema Neuro/Psych: alert ICD10 Worksheet Patient Problems: Problems Problem Status Onset Atrial fibrillation Acute Chronic obstructive pulmonary disease with acute exacerbation Acute
[2016-06-21] MEDS: AMOXICILLIN/CLAVULANATE POT 875/125 MG TAB PO SCH ×2 (09:43→20:43)
[2016-06-21] MEDS: DILTIAZEM CD 300 MG CAP PO SCH (09:43)
[2016-06-21] MEDS: PROPAFENONE HCL SR 325 MG CAP PO SCH ×2 (09:43→20:43)
[2016-06-21] MEDS: DOCUSATE SODIUM 100 MG CAP PO SCH ×2 (09:44→20:43)
[2016-06-21] MEDS: LOSARTAN POTASSIUM 50 MG TAB PO SCH (09:45)
[2016-06-21] MEDS: FERROUS SULFATE 325 MG TAB PO SCH (09:45)
[2016-06-21] MEDS: PANTOPRAZOLE SODIUM 40 MG TAB PO SCH (09:45)
[2016-06-21] MEDS: guaiFENesin 600 MG TAB.ER PO SCH ×2 (09:45→20:43)
[2016-06-21] MEDS: MAGNESIUM OXIDE 400 MG TAB PO SCH (09:45)
[2016-06-21] MEDS: DILTIAZEM XR 240 MG CAP PO SCH (10:09)
[2016-06-21] MEDS: NS 1,000 ML IV SCH (11:29)
[2016-06-21] MEDS: ENOXAPARIN 30 MG/0.3 ML SYR SC SCH (12:52)
--- NOTE | 2016-06-21 13:20 | HOSPPROG ---
Hospitalist Progress Note Assessment/Plan: 80-year-old woman with a history of bronchiectasis and SHONDA with chronic respiratory failure followed by Dr. Bhaskar Barfield is admitted with increasing productive cough and shortness of breath. CT angiogram was done which showed no PE but possible increased reticular nodular densities. She was admitted yesterday and has not improved significantly over night. She is concerned about her antibiotics. She typically takes Augmentin week 1, Bactrim week 2 and doxycycline week 3 with no antibiotics week 4. # cough with acute on chronic respiratory failure. Possibly new CT findings on her chronic bronchiectasis and SHONDA infection. Her oxygen needs have come down a little bit over her hospitalization. * Pulmonary consult appreciated and reviewed * Continue her usual Augmentin. Sputum cultures are unrevealing. # AFib with rapid ventricular response. Patient does have a history of previous AFib and is followed by Dr. Cohen. She typically is anticoagulated with 2 baby aspirins and is in sinus rhythm. Echocardiogram was done and was fairly unremarkable. Currently telemetry reviewed and she is in sinus rhythm * Discontinue heparin * Transition to p.o. medication * Appreciate Cardiology consult # chronic AYANNA. Followed by Dr. Bhaskar Barfield as an outpatient, continue her usual antibiotic regimen and last changed by pulmonology. # hyponatremia likely secondary to her pulmonary infection, will follow # hypertension: Well controlled will continue to follow # pulmonary fibrosis # macular degeneration Subjective: Patient feels about the same. No chest pain continues with shortness of breath. Feels like her sinuses are dried out Objective: Vital Signs Temp Pulse Resp BP Pulse Ox 36.6 C 74 17 145/65 H 93 06/21/16 12:00 06/21/16 12:00 06/21/16 12:00 06/21/16 12:00 06/21/16 12:00 Microbiology 06/20/16 10:40 - Final Sputum, Expectorated Laboratory Results 06/21/16 03:54 06/21/16 03:54 06/20/16 06/21/16 06/22/16 05:59 05:59 05:59 Intake Total 1291.6 1600 Output Total 600 2400 Balance 691.6 -800 PT 14.2 SEC (12.0-15.0) 06/19/16 16:49 INR 1.11 (0.83-1.16) 06/19/16 16:49 - Physical Exam Constitutional: no apparent distress, chronically ill appearing Eyes: PERRL, EOMI Cardiovascular: regular rate and rhythym, systolic murmur, No edema Respiratory: no respiratory distress, expiratory wheeze, inspiratory crackles Gastrointestinal: normoactive bowel sounds, soft, non-tender abdomen, no palpable masses Genitourinary: no bladder fullness Skin: warm, No normal color (Pale) Musculoskeletal: generalized weakness, No no joint effusions Neurologic: AAOx3 Psychiatric: interacting appropriately, not anxious, not encephalopathic ICD10 Worksheet Patient Problems: Problems Problem Status Onset Atrial fibrillation Acute Chronic obstructive pulmonary disease with acute exacerbation Acute
--- NOTE | 2016-06-21 14:21 | PDINTPN ---
Bending Shed Worker Progress Note Assessment/Plan: Assessment: Bronchiectasis: With acute exacerbation. Just changed to Augmentin. No change last 24 hours symptomatically. AF: Now in NSR Plan: Continue Advair, Augmentin, guaifenesin, Mucomyst. Increase activity. If remains stable, could discharge on current therapy. 06/21/16 14:22 06/21/16 14:22 Subjective: Feels breathing (cough, dyspnea) is about the same. Objective: Vital Signs Temp Pulse Resp BP Pulse Ox 36.6 C 74 17 145/65 H 93 06/21/16 12:00 06/21/16 12:00 06/21/16 12:00 06/21/16 12:00 06/21/16 12:00 Microbiology 06/20/16 10:40 - Final Sputum, Expectorated Laboratory Results 06/21/16 03:54 06/21/16 03:54 06/20/16 06/21/16 06/22/16 05:59 05:59 05:59 Intake Total 1291.6 1600 Output Total 600 2400 Balance 691.6 -800 PT 14.2 SEC (12.0-15.0) 06/19/16 16:49 INR 1.11 (0.83-1.16) 06/19/16 16:49 Physical Exam - Physical Exam General Appearance: alert, no apparent distress EENT: pharynx normal Neck: normal inspection Respiratory: crackles (bases) Cardiac/Chest: regular rate, rhythm, No edema Abdomen: normal bowel sounds, non-tender Skin: normal color, warm/dry Extremities: normal inspection Neuro/Psych: alert, normal mood/affect, oriented x 3 ICD10 Worksheet Patient Problems: Problems Problem Status Onset Atrial fibrillation Acute Chronic obstructive pulmonary disease with acute exacerbation Acute
[2016-06-21] MEDS: ASPIRIN 81 MG CHEWABLE TAB PO SCH (20:43)
[2016-06-21] MEDS: LATANOPROST 0.005% 2.5 ML OPHT DROPS EACHEYE SCH (20:43)
[2016-06-21] MEDS: HYDROCODONE/HOMATROPINE HYCODAN 5 ML UDL PO PRN (21:00)
[2016-06-22 04:32] LABS: HEMATOCRIT 30.9 % (38.0-47.0); HEMOGLOBIN 10.1 g/dL (12.6-16.3); MEAN CELL HEMOGLOBIN 31.7 pg (27.9-34.1); MEAN CELL HEMOGLOBIN CONCENTR. 32.7 g/dL (32.4-36.7); MEAN CELL VOLUME 96.9 fL (81.5-99.8); RED BLOOD CELL COUNT 3.19 10^6/uL (4.18-5.33); RED CELL DISTRIBUTION WIDTH 14.5 % (11.5-15.2)
[2016-06-22 04:46] LABS: ANION GAP 9 mEq/L (8-16); CALCIUM 8.3 mg/dL (8.5-10.4); CARBON DIOXIDE 31 mEq/l (22-31); CHLORIDE 91 mEq/L (97-110); CREATININE 0.4 mg/dL (0.6-1.0); GLOMERULAR FILTRATION RATE > 60; GLUCOSE 94 mg/dL (70-100); POTASSIUM 4.6 mEq/L (3.5-5.2); SODIUM 131 mEq/L (134-144)
[2016-06-22] MEDS: HYDROCODONE/HOMATROPINE HYCODAN 5 ML UDL PO PRN ×2 (05:15→22:54)
[2016-06-22] MEDS: IPRATROPIUM/ALBUTEROL 3 ML DEYVIAL IH SCH ×4 (06:13→21:51)
[2016-06-22] MEDS: ACETYLCYSTEINE 10% 30 ML VIAL IH SCH ×4 (06:14→21:51)
[2016-06-22] MEDS ORDERED: NON-FORMULARY NEW DRUG (Aflibercept [Eylea] 2 MG) IO SCH (08:30)
--- NOTE | 2016-06-22 08:43 | CPEKG ---
Heart Rate: 111 RR Interval: 541 P-R Interval: 168 QRSD Interval: 92 QT Interval: 352 QTC Interval: 479 P [place]: 82 QRS [place]: 80 T Wave [place]: 85 EKG Severity - ABNORMAL ECG - EKG Impression: SINUS TACHYCARDIA EKG Impression: ATRIAL BIGEMINY EKG Impression: PROBABLE LEFT ATRIAL ABNORMALITY EKG Impression: ANTERIOR INFARCT, AGE INDETERMINATE Electronically Signed By: Evan Baguh 22-Jun-2016 08:59:44
--- NOTE | 2016-06-22 09:32 | SOAPPROG ---
[facility] Progress Note Assessment/Plan: 1. Bronchiectasis - Pt has a history of bronchiectasis. She presents with an acute exacerbation. 2. PAF - Pt has a history of PAF. She is managed with rhythm control and asa. She is not felt to be a good anticoagulation candidate secondary to bleeding risk. Pt went back in to A-fib with RVR in the setting of Bronchiectasis. --> Continue rythmol and asa --> Increase diltiazem to 360 mg daily for rate control --> Consider digoxin if rate can not be controlled. 3. HTN - BP well controlled on current medications. Decrease losartan to 25 mg daily if BP decreases with increased diltiazem dosing. Subjective: I think I went back into A-fib + cough + dyspnea No orthopnea or PND Objective: Vital Signs Temp Pulse Resp BP Pulse Ox 36.9 C 95 16 139/59 H 90 L 06/22/16 08:00 06/22/16 08:00 06/22/16 08:00 06/22/16 08:00 06/22/16 08:00 Microbiology 06/20/16 10:40 - Final Sputum, Expectorated Laboratory Results 06/22/16 03:56 06/22/16 03:56 06/21/16 06/22/16 06/23/16 05:59 05:59 05:59 Intake Total 1600 1350 Output Total 2400 2575 Balance -800 -1225 PT 14.2 SEC (12.0-15.0) 06/19/16 16:49 INR 1.11 (0.83-1.16) 06/19/16 16:49 Physical Exam - Physical Exam General Appearance: alert, mild distress Respiratory: crackles, wheezing Cardiac/Chest: tachycardia, irregularly irregular Abdomen: non-tender, soft Extremities: pedal edema Neuro/Psych: alert, oriented x 3 ICD10 Worksheet Patient Problems: Problems Problem Status Onset Atrial fibrillation Acute Chronic obstructive pulmonary disease with acute exacerbation Acute
[2016-06-22] MEDS: guaiFENesin 600 MG TAB.ER PO SCH ×2 (09:59→20:08)
[2016-06-22] MEDS: PROPAFENONE HCL SR 325 MG CAP PO SCH ×2 (09:59→20:08)
[2016-06-22] MEDS: AMOXICILLIN/CLAVULANATE POT 875/125 MG TAB PO SCH ×2 (09:59→20:08)
[2016-06-22] MEDS: ENOXAPARIN 30 MG/0.3 ML SYR SC SCH (09:59)
[2016-06-22] MEDS: FERROUS SULFATE 325 MG TAB PO SCH (10:00)
[2016-06-22] MEDS: DOCUSATE SODIUM 100 MG CAP PO SCH ×3 (10:00→21:49)
[2016-06-22] MEDS: PANTOPRAZOLE SODIUM 40 MG TAB PO SCH (10:00)
[2016-06-22] MEDS: MAGNESIUM OXIDE 400 MG TAB PO SCH (10:00)
[2016-06-22] MEDS: LOSARTAN POTASSIUM 50 MG TAB PO SCH (10:00)
[2016-06-22] MEDS: DILTIAZEM CD 180 MG CAP PO SCH (10:01)
[2016-06-22] MEDS: DILTIAZEM CD 300 MG CAP PO SCH (10:05)
[2016-06-22] MEDS: FLUTICASONE/SALMETER 250/50MCG DISKUS IH SCH ×2 (11:13→22:03)
--- NOTE | 2016-06-22 11:14 | HOSPPROG ---
Hospitalist Progress Note Assessment/Plan: 80-year-old woman with a history of bronchiectasis and SHONDA with chronic respiratory failure followed by Dr. Bhaskar Barfield is admitted with increasing productive cough and shortness of breath. CT angiogram was done which showed no PE but possible increased reticular nodular densities. She continues to need slightly increased oxygen. She thinks she may be a little bit better today however this morning went into rapid AFib # cough with acute on chronic respiratory failure. Possibly new CT findings on her chronic bronchiectasis and SHONDA infection. Her oxygen needs have come down a little bit over her hospitalization. * Pulmonary consult appreciated and reviewed * Continue her usual Augmentin. Sputum cultures are unrevealing. # AFib with rapid ventricular response. Patient does have a history of previous AFib and is followed by Dr. Cohen. She typically is anticoagulated with 2 baby aspirins and is in sinus rhythm. Echocardiogram was done and was fairly unremarkable. Currently telemetry reviewed and she is in AFib * Increase oral diltiazem if that is ineffective in bring her rate down with consider IV Dilt or adding digoxin. * Continue her Rythmol * Appreciate Cardiology consult # chronic AYANNA. Followed by Dr. Bhaskar Barfield as an outpatient, continue her usual antibiotic regimen and last changed by pulmonology. # hyponatremia likely secondary to her pulmonary infection, will follow # hypertension: Well controlled will continue to follow # pulmonary fibrosis # macular degeneration Subjective: Patient feels about the same her edema is slightly decreased this morning. Objective: Vital Signs Temp Pulse Resp BP Pulse Ox 36.9 C 95 16 139/59 H 90 L 06/22/16 08:00 06/22/16 08:00 06/22/16 08:00 06/22/16 08:00 06/22/16 08:00 Microbiology 06/20/16 10:40 - Final Sputum, Expectorated Laboratory Results 06/22/16 03:56 06/22/16 03:56 06/21/16 06/22/16 06/23/16 05:59 05:59 05:59 Intake Total 1600 1350 Output Total 2400 2575 Balance -800 -1225 PT 14.2 SEC (12.0-15.0) 06/19/16 16:49 INR 1.11 (0.83-1.16) 06/19/16 16:49 - Physical Exam Constitutional: not in pain, chronically ill appearing Eyes: PERRL, anicteric sclera, EOMI Ears, Nose, Mouth, Throat: moist mucous membranes, hearing normal Cardiovascular: systolic murmur, irregularly irregular, tachycardia Respiratory: no respiratory distress, inspiratory crackles, No expiratory wheeze Gastrointestinal: normoactive bowel sounds, soft, non-tender abdomen, no palpable masses Genitourinary: no bladder fullness Skin: warm, normal color Musculoskeletal: no joint effusions, generalized weakness, No muscular tenderness Neurologic: AAOx3, No facial droop Psychiatric: interacting appropriately, not anxious, not encephalopathic ICD10 Worksheet Patient Problems: Problems Problem Status Onset Atrial fibrillation Acute Chronic obstructive pulmonary disease with acute exacerbation Acute
--- NOTE | 2016-06-22 16:39 | SOAPPROG ---
SOAP Progress Note Assessment/Plan: Assessment: Bronchiectasis: With acute exacerbation. Just changed to Augmentin. No change last 24 hours symptomatically. Etiology may be more viral than bacterial. AF: Now in NSR. On Rythmol and diltiazem, aspirin for stroke prevention. Per Cardiology. DVT prophylaxis: Enoxaparin Plan: Continue Advair, Augmentin, guaifenesin, Mucomyst. Increase activity. if cardiac status remained stable she can possibly be discharged home tomorrow on her current pulmonary medications.. Subjective: Doing okay. Has clear sputum, some cough, some shortness of breath. heart is regular Objective: Vital Signs Temp Pulse Resp BP Pulse Ox 36.4 C 114 H 15 113/89 H 88 L 06/22/16 11:46 06/22/16 11:46 06/22/16 11:46 06/22/16 11:46 06/22/16 11:46 Microbiology 06/20/16 10:40 - Final Sputum, Expectorated Laboratory Results 06/22/16 03:56 06/22/16 03:56 06/21/16 06/22/16 06/23/16 05:59 05:59 05:59 Intake Total 1600 1350 480 Output Total 2400 2575 500 Balance -800 -1225 -20 PT 14.2 SEC (12.0-15.0) 06/19/16 16:49 INR 1.11 (0.83-1.16) 06/19/16 16:49 Physical Exam - Physical Exam General Appearance: alert, no apparent distress EENT: other ( nasal cannula at 3-4 L) Neck: normal inspection Respiratory: decreased breath sounds, rales ( on left side greater than right. Breath sounds are more diminished on left than the right), No lungs clear, No normal breath sounds, No respiratory distress, No rhonchi, No wheezing Cardiac/Chest: regular rate, rhythm ( currently. In AFib earler tody.) Abdomen: normal bowel sounds, non-tender, soft Skin: warm/dry, pallor Extremities: pedal edema Neuro/Psych: no motor/sensory deficits, No cognition abnormalities ICD10 Worksheet Patient Problems: Problems Problem Status Onset Atrial fibrillation Acute Chronic obstructive pulmonary disease with acute exacerbation Acute
[2016-06-22] MEDS: ASPIRIN 81 MG CHEWABLE TAB PO SCH (20:08)
[2016-06-22] MEDS: LATANOPROST 0.005% 2.5 ML OPHT DROPS EACHEYE SCH (20:09)
[2016-06-23 04:31] LABS: ADD DIFF? YES; ADD MORPH? NO; ADD SCAN? NO; ATYPICAL LYMPHOCYTE FLAG 20 (0-99); FRAGMENT RBC FLAG 0 (0-99); HEMATOCRIT 31.2 % (38.0-47.0); HEMOGLOBIN 10.2 g/dL (12.6-16.3); LEFT SHIFT FLG 20 (0-99); LIPEMIA HEMOLYSIS FLAG 80 (0-99); MEAN CELL HEMOGLOBIN 31.7 pg (27.9-34.1); MEAN CELL HEMOGLOBIN CONCENTR. 32.7 g/dL (32.4-36.7); MEAN CELL VOLUME 96.9 fL (81.5-99.8); MEAN PLATELET VOLUME 8.7 fL (8.7-11.7); PLATELET CLUMPS FLAG 0 (0-99); PLATELET COUNT 207 10^3/uL (150-400); RED BLOOD CELL COUNT 3.22 10^6/uL (4.18-5.33); RED CELL DISTRIBUTION WIDTH 14.6 % (11.5-15.2)
[2016-06-23 04:58] LABS: ANION GAP 7 mEq/L (8-16); CALCIUM 8.4 mg/dL (8.5-10.4); CARBON DIOXIDE 31 mEq/l (22-31); CHLORIDE 89 mEq/L (97-110); CREATININE 0.4 mg/dL (0.6-1.0); GLOMERULAR FILTRATION RATE > 60; GLUCOSE 103 mg/dL (70-100); MAGNESIUM 1.8 mg/dL (1.6-2.3); POTASSIUM 4.6 mEq/L (3.5-5.2); SODIUM 127 mEq/L (134-144)
[2016-06-23] MEDS: IPRATROPIUM/ALBUTEROL 3 ML DEYVIAL IH SCH ×4 (05:12→21:24)
[2016-06-23] MEDS: ACETYLCYSTEINE 10% 30 ML VIAL IH SCH ×4 (05:12→21:24)
[2016-06-23 05:33] LABS: PLATELET ESTIMATE ADEQUATE (ADEQ)
[2016-06-23 05:34] LABS: HYPOCHROMIA 1+
[2016-06-23] MEDS: guaiFENesin 600 MG TAB.ER PO SCH ×2 (08:48→20:59)
[2016-06-23] MEDS: AMOXICILLIN/CLAVULANATE POT 875/125 MG TAB PO SCH ×2 (08:48→20:59)
[2016-06-23] MEDS: PROPAFENONE HCL SR 325 MG CAP PO SCH ×2 (08:48→21:00)
[2016-06-23] MEDS: ENOXAPARIN 30 MG/0.3 ML SYR SC SCH (08:48)
[2016-06-23] MEDS: MAGNESIUM OXIDE 400 MG TAB PO SCH (08:48)
[2016-06-23] MEDS: LOSARTAN POTASSIUM 50 MG TAB PO SCH (08:48)
[2016-06-23] MEDS: PANTOPRAZOLE SODIUM 40 MG TAB PO SCH (08:49)
[2016-06-23] MEDS: DILTIAZEM CD 180 MG CAP PO SCH (08:49)
[2016-06-23] MEDS: FERROUS SULFATE 325 MG TAB PO SCH (08:49)
[2016-06-23] MEDS: DOCUSATE SODIUM 100 MG CAP PO SCH ×2 (08:51→21:00)
[2016-06-23] MEDS: FLUTICASONE/SALMETER 250/50MCG DISKUS IH SCH ×2 (11:18→21:35)
--- NOTE | 2016-06-23 12:15 | HOSPPROG ---
Hospitalist Progress Note Assessment/Plan: 80-year-old woman with a history of bronchiectasis and SHONDA with chronic respiratory failure followed by Dr. Bhaskar Barfield is admitted with increasing productive cough and shortness of breath. CT angiogram was done which showed no PE but possible increased reticular nodular densities. She continues to need slightly increased oxygen. She thinks she may be a little bit better today however she continues to have paroxysmal AFib which is symptomatic. # cough with acute on chronic respiratory failure. Likely etiology is viral given her serologies. * Pulmonary consult appreciated and reviewed * Continue her usual Augmentin. Viral PCR positive for marroquin virus and enterovirus * Ready for discharge from a respiratory standpoint # AFib with rapid ventricular response. Patient does have a history of previous AFib and is followed by Dr. Cohen. She typically is anticoagulated with 2 baby aspirins and is in sinus rhythm. Echocardiogram was done and was fairly unremarkable. Currently telemetry reviewed and she is in sinus rhythm * Currently on an increased dose of diltiazem and Rythmol per Cardiology * Would like to monitor her today to make sure she does not continue to have intermittent AFib with rapid rates * Will discuss with Cardiology regarding other options if she does have another episode of AFib today. # chronic AYANNA. Followed by Dr. Bhaskar Barfield as an outpatient, continue her usual antibiotic regimen and last changed by pulmonology. # hyponatremia likely secondary to her pulmonary infection, will follow # hypertension: Well controlled will continue to follow # pulmonary fibrosis # macular degeneration Disposition: Discussed with Dr. Barfield who would like to monitor in-house for another day to make sure her cardiac status is stable prior to going home. Over the last 24 hour she has continued to have intermittent episodes of rapid AFib despite medical management. I suspect as her respiratory status improves her cardiac status will improve as well however would defer to Cardiology if further interventions need to be done Subjective: Still with a lot of respiratory distress and cough. Not much better today but overall would not expect her to feel significantly improved over her baseline Objective: Vital Signs Temp Pulse Resp BP Pulse Ox 36.9 C 76 24 H 137/67 H 94 06/23/16 11:09 06/23/16 11:23 06/23/16 11:23 06/23/16 11:09 06/23/16 11:23 Microbiology 06/20/16 10:40 - Final Sputum, Expectorated Laboratory Results 06/23/16 04:05 06/23/16 04:05 06/22/16 06/23/16 06/24/16 05:59 05:59 05:59 Intake Total 1350 2430 Output Total 2575 1550 Balance -1225 880 PT 14.2 SEC (12.0-15.0) 06/19/16 16:49 INR 1.11 (0.83-1.16) 06/19/16 16:49 - Physical Exam Constitutional: chronically ill appearing, uncomfortable Eyes: PERRL, anicteric sclera, EOMI Ears, Nose, Mouth, Throat: moist mucous membranes Cardiovascular: regular rate and rhythym, edema Respiratory: reduced air movement, inspiratory crackles (Left greater than right ), respiratory distress Gastrointestinal: normoactive bowel sounds, soft, non-tender abdomen, no palpable masses Genitourinary: no bladder fullness Skin: warm, normal color Musculoskeletal: generalized weakness Neurologic: AAOx3 Psychiatric: interacting appropriately, not anxious ICD10 Worksheet Patient Problems: Problems Problem Status Onset Atrial fibrillation Acute Chronic obstructive pulmonary disease with acute exacerbation Acute
--- NOTE | 2016-06-23 15:20 | SOAPPROG ---
SOTAMIR Progress Note Assessment/Plan: 1. Bronchiectasis - Pt has a history of bronchiectasis. She presents with an acute exacerbation. 2. PAF - Pt has a history of PAF. She is managed with rhythm control and asa. She is not felt to be a good anticoagulation candidate secondary to bleeding risk. Pt has had intermittent A-fib with RVR in the setting of Bronchiectasis. --> Continue rythmol, asa, and diltiazem --> Will add metoprolol 12.5 mg bid for improved rate control. Reviewed with pulmonary. 3. HTN - BP well controlled on current medications. Decrease losartan to 25 mg daily if BP decreases with increased diltiazem and metoprolol. Subjective: No chest pain No orthopnea or PND + cough +dyspnea + palpitations overnight Objective: Vital Signs Temp Pulse Resp BP Pulse Ox 36.9 C 81 24 H 137/67 H 90 L 06/23/16 11:09 06/23/16 11:45 06/23/16 11:23 06/23/16 11:09 06/23/16 11:45 Microbiology 06/20/16 10:40 - Final Sputum, Expectorated Sputum Culture - Final Gram Neg Ortiz Nonlactose Ferm. Laboratory Results 06/23/16 04:05 06/23/16 04:05 06/22/16 06/23/16 06/24/16 05:59 05:59 05:59 Intake Total 1350 2430 Output Total 2575 1550 Balance -1225 880 PT 14.2 SEC (12.0-15.0) 06/19/16 16:49 INR 1.11 (0.83-1.16) 06/19/16 16:49 Physical Exam - Physical Exam General Appearance: alert, mild distress Respiratory: other (corse breath sounds) Cardiac/Chest: regular rate, rhythm, systolic murmur Abdomen: normal bowel sounds, non-tender, soft Extremities: pedal edema Neuro/Psych: alert, oriented x 3 ICD10 Worksheet Patient Problems: Problems Problem Status Onset Atrial fibrillation Acute Chronic obstructive pulmonary disease with acute exacerbation Acute
--- NOTE | 2016-06-23 16:06 | SOAPPROG ---
SOAP Progress Note Assessment/Plan: Assessment: Bronchiectasis: With acute exacerbation. Just changed to Augmentin. Improving, closer to baseline. Etiology may be more viral than bacterial. AF: Now in NSR. On Rythmol and increased diltiazem, aspirin for stroke prevention. Per Cardiology. DVT prophylaxis: Enoxaparin Hyponatremia: Chronic. Sodium 127 today. Will follow. Plan: Continue Advair, Augmentin, guaifenesin, Mucomyst. Increase activity. From a pulmonary standpoint she can be discharged to home once her atrial fibrillation is under good control. Subjective: Doing okay. Denies significant shortness of breath but not yet back to baseline. Currently on has a regular heart rhythm. Knows when she is in atrial fibrillation. Objective: Vital Signs Temp Pulse Resp BP Pulse Ox 37.1 C 72 20 130/63 H 96 06/23/16 15:43 06/23/16 15:43 06/23/16 15:43 06/23/16 15:43 06/23/16 15:43 Microbiology 06/20/16 10:40 - Final Sputum, Expectorated Sputum Culture - Final Gram Neg Ortiz Nonlactose Ferm. Laboratory Results 06/23/16 04:05 06/23/16 04:05 06/22/16 06/23/16 06/24/16 05:59 05:59 05:59 Intake Total 1350 2430 Output Total 2575 1550 Balance -1225 880 PT 14.2 SEC (12.0-15.0) 06/19/16 16:49 INR 1.11 (0.83-1.16) 06/19/16 16:49 Physical Exam - Physical Exam General Appearance: alert, no apparent distress EENT: other (Nasal cannula at 3 L) Neck: normal inspection (No JVD) Respiratory: decreased breath sounds (Bilaterally, more so on the left than the right), rales (Present bilaterally, left greater than right), No rhonchi, No wheezing Cardiac/Chest: regular rate, rhythm, systolic murmur Abdomen: normal bowel sounds, non-tender, soft Skin: normal color, warm/dry Extremities: No pedal edema Neuro/Psych: no motor/sensory deficits, No cognition abnormalities ICD10 Worksheet Patient Problems: Problems Problem Status Onset Atrial fibrillation Acute Chronic obstructive pulmonary disease with acute exacerbation Acute
[2016-06-23] MEDS: ASPIRIN 81 MG CHEWABLE TAB PO SCH (20:59)
[2016-06-23] MEDS: LATANOPROST 0.005% 2.5 ML OPHT DROPS EACHEYE SCH (21:01)
[2016-06-23] MEDS: METOPROLOL TARTRATE 25 MG TAB PO SCH (21:03)
[2016-06-24] MEDS: ACETYLCYSTEINE 10% 30 ML VIAL IH SCH ×2 (05:27→11:26)
[2016-06-24] MEDS: IPRATROPIUM/ALBUTEROL 3 ML DEYVIAL IH SCH ×2 (05:28→11:26)
[2016-06-24 05:32] LABS: ADD DIFF? YES; ADD MORPH? NO; ADD SCAN? NO; ATYPICAL LYMPHOCYTE FLAG 30 (0-99); FRAGMENT RBC FLAG 0 (0-99); HEMATOCRIT 29.1 % (38.0-47.0); HEMOGLOBIN 9.6 g/dL (12.6-16.3); LEFT SHIFT FLG 20 (0-99); LIPEMIA HEMOLYSIS FLAG 80 (0-99); MEAN CELL HEMOGLOBIN 31.8 pg (27.9-34.1); MEAN CELL VOLUME 96.4 fL (81.5-99.8); MEAN PLATELET VOLUME 8.8 fL (8.7-11.7); PLATELET CLUMPS FLAG 0 (0-99); PLATELET COUNT 198 10^3/uL (150-400); RED BLOOD CELL COUNT 3.02 10^6/uL (4.18-5.33); RED CELL DISTRIBUTION WIDTH 14.6 % (11.5-15.2)
[2016-06-24 05:46] LABS: ANION GAP 6 mEq/L (8-16); CALCIUM 8.6 mg/dL (8.5-10.4); CARBON DIOXIDE 34 mEq/l (22-31); CHLORIDE 87 mEq/L (97-110); CREATININE 0.4 mg/dL (0.6-1.0); GLOMERULAR FILTRATION RATE > 60; GLUCOSE 102 mg/dL (70-100); MAGNESIUM 1.9 mg/dL (1.6-2.3); SODIUM 127 mEq/L (134-144)
[2016-06-24 06:17] LABS: HYPOCHROMIA 1+; PLATELET ESTIMATE ADEQUATE (ADEQ)
[2016-06-24 08:00] VITALS: RESP 20
[2016-06-24] MEDS: guaiFENesin 600 MG TAB.ER PO SCH (08:30)
[2016-06-24] MEDS: FERROUS SULFATE 325 MG TAB PO SCH (08:30)
[2016-06-24] MEDS: AMOXICILLIN/CLAVULANATE POT 875/125 MG TAB PO SCH (08:30)
[2016-06-24] MEDS: METOPROLOL TARTRATE 25 MG TAB PO SCH (08:31)
[2016-06-24] MEDS: MAGNESIUM OXIDE 400 MG TAB PO SCH (08:31)
[2016-06-24] MEDS: DILTIAZEM CD 180 MG CAP PO SCH (08:31)
[2016-06-24] MEDS: PROPAFENONE HCL SR 325 MG CAP PO SCH (08:32)
[2016-06-24] MEDS: DOCUSATE SODIUM 100 MG CAP PO SCH (08:32)
[2016-06-24] MEDS: LOSARTAN POTASSIUM 50 MG TAB PO SCH (08:32)
[2016-06-24] MEDS: ENOXAPARIN 30 MG/0.3 ML SYR SC SCH (08:32)
[2016-06-24] MEDS: PANTOPRAZOLE SODIUM 40 MG TAB PO SCH (08:32)
[2016-06-24] MEDS: FLUTICASONE/SALMETER 250/50MCG DISKUS IH SCH (08:33)
[2016-06-24 11:40] VITALS: BP 132/63; PULSE 70; TEMP 98.1; O2SAT 91
--- NOTE | 2016-06-24 15:03 | PDDCSUM ---
Discharge Summary Discharge Summary: 80-year-old woman with a history of bronchiectasis and SHONDA with chronic respiratory failure followed by Dr. Bhaskar Barfield admitted with increasing productive cough and shortness of breath. CT angiogram was done which showed no PE but possible increased reticular nodular densities. She developed acute on chronic afib and was treated accordingly. She is now at baseline. Cards and Pulm have cleared for discharge. She is in SR. Discharge Dx: # cough with acute on chronic respiratory failure. Likely etiology is viral given her serologies. * Pulmonary consult appreciated and reviewed * Continue her usual Augmentin. * Viral PCR positive for marroquin virus and enterovirus * cleared for discharge from a respiratory standpoint # AFib with rapid ventricular response. Patient does have a history of previous AFib and is followed by Dr. Cohen. She typically is anticoagulated with 2 baby aspirins and is in sinus rhythm. Echocardiogram was done and was fairly unremarkable. Currently telemetry reviewed and she is in sinus rhythm * Currently on an increased dose of diltiazem and Rythmol per Cardiology # chronic AYANNA. Followed by Dr. Bhaskar Barfield as an outpatient, continue her usual antibiotic regimen and last changed by pulmonology. # hyponatremia, resolved # hypertension: Well controlled will continue to follow # pulmonary fibrosis # macular degeneration DDX: VS on 3L RRR Slightly decreased BS, normal wob s/nt/nd no edema discharge meds: see med rec total care time spent on discharge is 35 minutes
[2016-06-25] MEDS ORDERED: LOSARTAN POTASSIUM 25 MG TAB PO SCH (09:00)
[2016-06-25 15:02] LABS: COCCIDIOIDES ANTIBODY SERUM Negative (Negative); COCCIDIOIDES IGG IMMUNODIF Negative (Negative); COCCIDIOIDES IGM IMMUNODIF Negative (Negative)
== END 2016-06-24 16:45 | disposition home or self-care (01) | DRG 189 ==
LOC: OBSVTOIN 17:01 → F2W 17:44
PROVIDERS: ADMIT Hospitalist; ATTEND Family Medicine
DX: J96.21 Acute and chronic respiratory failure with hypoxia (principal); J47.1 Bronchiectasis with (acute) exacerbation; A31.0 Pulmonary mycobacterial infection; I48.0 Paroxysmal atrial fibrillation; E87.1 Hypo-osmolality and hyponatremia; I10 Essential (primary) hypertension; J84.10 Pulmonary fibrosis, unspecified; I27.2 Other secondary pulmonary hypertension; E78.5 Hyperlipidemia, unspecified; K44.9 Diaphragmatic hernia without obstruction or gangrene; Z99.81 Dependence on supplemental oxygen
CPT/HCPCS: 85520-90; 86635-90; 97116-GP; 97161-GP; 97165-GO; 97535-GO; G8978-GP-CI; G8979-GP-CI; G8980-GP-CI; G8987-GO-CI; G8988-GO-CI; J1644; J1650; Q9967

== ENCOUNTER 2016-06-29 16:39 | Inpatient (IN) | payer OTHER ==
--- NOTE | 2016-06-29 16:45 | EDPHY ---
HPI/HX/ROS/PE/MDM Narrative: CHIEF COMPLAINT: Chest pressure. HISTORY OF PRESENT ILLNESS: The patient is an 80-year-old female with a history of atrial fibrillation who presents via EMS for an hour and half of 4/ 10 left-sided chest pressure. She was discharged from the hospital 5 days ago for shortness of breath thought to be secondary to her bronchiectasis as well as to her atrial fibrillation. At discharge, the patient was placed on a metropolol, her diltiazem was increased, her Rythmol was increased. She initially thought that her chest pressure today was from atrial fibrillation but she also noticed that her heart rate was slow (in the 40s). She admits associated productive cough. She denies lightheadedness or syncope. No fever, chills, chest pain, shortness of breath, vomiting, diarrhea, urinary complaints , headache, lightheadedness. She usually uses 2L of oxygen at home but has been on 3L recently. She takes 2 baby aspirin per day. REVIEW OF SYSTEMS: Aside from elements discussed in the HPI, a comprehensive 10-point review of systems was reviewed and is negative. PAST MEDICAL HISTORY: Atrial fibrillation, bronchiectasis. I reviewed the patient's discharge summary from 06/24/2016. SOCIAL HISTORY: . VITAL SIGNS: Reviewed by me GENERAL: Sitting upright, reports increased shortness of breath if she lays flat, occasionally wet cough, slightly tachypneic. Pale. Looks unwell. HEENT: Atraumatic. Eyes: No icterus, no injection. Mouth: moist mucous membranes. No erythema or lesions. Neck: supple with no adenopathy. LUNGS: Faint crackles the lower bases bilaterally, no rhonchi or rales. Occasional wheezes. CARDIAC: Bradycardic, slightly irregular, no rubs, murmurs or gallops. ABDOMEN: Soft, nontender, nondistended, bowel sounds normal. BACK: No CVA tenderness. EXTREMITIES: No trauma. Range of motion is normal throughout. Trace ankle edema bilaterally. NEURO: Alert and oriented, grossly nonfocal. SKIN: Warm and dry, no rash. PSYCHIATRIC: Normal mentation, no agitation. Portions of this note were transcribed by a medical insurance verifier. I personally performed a history, physical exam, medical decision making, and confirmed accuracy of information the transcribed note. ED Course: 80-year-old female with atrial fibrillation presents with 4/10 chest pain than began at 1530 today (1.5 hours ago). The pain is described as a pressure and is non-radiating. I reviewed the patient's past medical notes. She was admitted 11 days ago for shortness of breath and cough which was found to be secondary to her atrial fibrillation. She was discharged 5 days ago in sinus rhythm. Her dose of diltiazem was increased from 240 to 360. Losartan was reduced from 50 to 25. She was started on 12.5mg Metoprolol and 325mg Rythmol. Today she thought her pain was from atrial fibrillation but then noticed her heart was beating slowly. Heart rate is 34 on arrival. Blood pressure 88/36. On exam she has occasional wheezes and dry crackles bilaterally. She is very bradycardic. An EKG has been obtained. 12-LEAD EKG: Please see the full report in [facility]. My interpretation: Ventricular escape bigeminy. Cardiology paged. Atropine was ordered. I-STAT was ordered. 1713: Consulted with Dr. Gomez, cardiology. 172: ISTAT potassium is 6.8. A second IV was established. The patient's heart rate is now 25. 1gm IV Calcium gluconate, 25gm Dextrose 50%, and 10 units insulin administered. 1mg IV Atropine administered. Her reports that she does take potassium. Her chest pain is still 4/10. Repeat blood pressure 97/ 44. 174: Dr. Gomez in the ER to consult with the patient. I independently viewed the patient's chest x-ray on the PACS system. See Imaging section for radiologist report. 1828: Consulted with Dr. Gomez after his assessment of the patient. He reports the patient is occasionally converting into sinus rhythm for short periods of time. We will obtain a repeat CHEM panel. He has discussed pacemaker placement with the patient. Additional mg of atropine ordered. Patient remains hypotensive and dopamine drip was ordered. 1851: Consulted with hospitalist. He accepts admission. 1854: Reassessed patient. She is now vomiting. 4mg IV Zofran administered. Repeat EKG ordered. 1936: Reassessed patient. She reports feeling "sleepy and dopey." She reports that when she tries to speak a sentence, she can't find the words. She denies numbness, tingling, or paresthesias. I performed a full neurological exam at this time. NIH stroke score 0. I have ordered a head CT. She will be taken directly to the floor after imaging. The differential diagnosis for the patient's chest pain included but was not limited to myocardial ischemia, pulmonary embolus, chest wall pain, pleural inflammation, and pulmonary infectious causes. MDM: Critical care time spent by me, Dr. Albrecht exclusively with this patient was 45 minutes, exclusive of PA time and exclusive of procedures. The organ system at risk was cardiac and I gave atropine, pressors, treated hyperkalemia, consulted Cardiology, and administered IVF, to prevent worsening of the patients condition. Critical care time included obtaining history, performing a physical exam, bedside monitoring of interventions, collecting and interpreting tests and discussion with consultants but not including time spent performing procedures. - Data Points Imaging Results: Imaging Impressions Chest X-Ray 06/29/16 17:32 Impression: Increased right basilar opacities superimposed on extensive interstitial lung disease, which could represent pneumonia, atelectasis, and/or effusion. Laboratory Results: Laboratory Results 06/29/16 16:50 06/29/16 16:50 06/29/16 06/29/16 06/29/16 17:32 16:50 16:50 WBC 10.93 10^3/uL H 10^3/uL (3.80-9.50) RBC 3.78 10^6/uL L 10^6/uL (4.18-5.33) Hgb 11.7 g/dL L g/dL (12.6-16.3) Hct 35.6 % L % (38.0-47.0) MCV 94.2 fL fL (81.5-99.8) MCH 31.0 pg pg (27.9-34.1) MCHC 32.9 g/dL g/dL (32.4-36.7) RDW 15.4 % H % (11.5-15.2) Plt Count 276 10^3/uL 10^3/uL (150-400) MPV 8.9 fL fL (8.7-11.7) Neut % (Auto) Not Reported Lymph % (Auto) Not Reported [place] % (Auto) Not Reported Eos % (Auto) Not Reported Baso % (Auto) Not Reported Nucleat RBC Rel Count 0.0 % % (0.0-0.2) Absolute Neuts (auto) Not Reported Absolute Lymphs (auto) Not Reported Absolute Monos (auto) Not Reported Absolute Eos (auto) Not Reported Absolute Basos (auto) Not Reported Absolute Nucleated RBC 0.00 10^3/uL 10^3/uL (0-0.01) Immature Gran % Not Reported Seg Neutrophils % 61 % % Band Neutrophils % 12 % % Lymphocytes % 14 % % Monocytes % 9 % % Eosinophils % 1 % % Metamyelocytes % 2 % % Myelocytes % 1 % % Immature Gran # Not Reported Absolute Seg Neuts 6.67 10^/uL H 10^/uL (1.70-6.50) Absolute Band Neuts 1.31 10^3/uL H 10^3/uL (0.00-0.70) Absolute Lymphocytes 1.53 10^3/uL 10^3/uL (1.00-3.00) Absolute Monocytes 0.98 10^3/uL H 10^3/uL (0.30-0.80) Absolute Eosinophils 0.11 10^3/uL 10^3/uL (0.03-0.40) Absolute Metamyelocyte 0.22 10^3/mL H 10^3/mL (0.00-0.00) Absolute Myelocytes 0.11 10^3/mL H 10^3/mL (0.00-0.00) RBC/WBC/PLT Morphology NORMAL (NORMAL) Platelet Estimate ADEQUATE (ADEQ) Smear Review By Pending Sodium 127 mEq/L L mEq/L (134-144) Potassium 6.0 mEq/L H mEq/L (3.5-5.2) Chloride 81 mEq/L L mEq/L (97-110) Carbon Dioxide 33 mEq/l H mEq/l (22-31) Anion Gap 13 mEq/L mEq/L (8-16) BUN 14 mg/dL mg/dL (7-23) Creatinine 0.7 mg/dL mg/dL (0.6-1.0) Estimated GFR > 60 Glucose 161 mg/dL H mg/dL (70-100) Calcium 9.7 mg/dL mg/dL (8.5-10.4) Troponin I < 0.012 ng/mL ng/mL (0-0.034) NT-Pro-B Natriuret Pep 738 pg/mL H pg/mL (0-450) Medications Given: Discontinued Medications Atropine Sulfate (Atropine 1 Mg/10 Ml Syringe) 1 mg IVP EDNOW ONE Stop: 06/29/16 17:28 Last Admin: 06/29/16 17:27 Dose: 1 mg Atropine Sulfate (Atropine 1 Mg/10 Ml Syringe) 1 mg IVP ONCE ONE Stop: 06/29/16 18:36 Last Admin: 06/29/16 18:36 Dose: 1 mg Calcium Gluconate (Calcium Gluconate) 1 gm IVP EDNOW ONE Stop: 06/29/16 17:20 Last Admin: 06/29/16 17:25 Dose: 1 gm Dextrose (Dextrose 50% Syringe) 25 gm IVP EDNOW ONE Stop: 06/29/16 17:20 Last Admin: 06/29/16 17:36 Dose: 25 gm Insulin Human Regular 10 unit/Miscellaneous Medication 1 ea / Dextrose 500.1 mls @ 50 mls/hr IV EDNOW ONE Stop: 06/30/16 03:19 Last Admin: 06/29/16 18:55 Dose: Not Given Sodium Chloride (Ns) 500 mls @ 0 mls/hr IV ONCE ONE PRN Reason: As Directed Stop: 06/29/16 17:56 Last Admin: 06/29/16 17:57 Dose: 500 mls Dopamine HCl/Dextrose (Dopamine 1600 Mcg/Ml (Premix)) 250 mls @ 0 mls/hr IV EDNOW ONE; Titrate PRN Reason: Protocol Stop: 06/29/16 18:36 Last Admin: 06/29/16 18:37 Dose: 250 mls Insulin Human Regular (Humulin R) 10 unit IVP EDNOW ONE Stop: 06/29/16 17:20 Last Admin: 06/29/16 17:42 Dose: 10 units General Time Seen by Provider: 06/29/16 16:44 Initial Vital Signs: Initial Vital Signs Temperature (C) 36.5 C 06/29/16 16:39 Heart Rate 47 L 06/29/16 16:39 Respiratory Rate 16 06/29/16 16:39 Blood Pressure 94/36 L 06/29/16 16:39 O2 Sat (%) 80 L 06/29/16 16:39 O2 Delivery Mode Nasal Cannula O2 (L/minute) 5 Allergies/Adverse Reactions: No Known Allergies Allergy (Verified 06/19/16 12:51) Home Medications: Medication Instructions Recorded Albuterol [Proventil Inhaler HFA 2 puffs IH BID PRN 09/23/11 (*)] Aspirin [Aspirin 81mg (*)] 162 mg PO HS 09/23/11 C/E/Zn/Cu/OM3/DHA/EPA/LUT/ZEAX 2 each PO DAILY 09/23/11 [Preservision Areds 2 Softgel] Calcium Carb W/Vit D [Calcium Carb 1,000 mg PO DAILY 09/23/11 W/Vit D 500/200 (*)] Ferrous Sulfate [Ferrous Sulf 325 325 mg PO DAILY 09/23/11 MG (*)] Fluticasone/Salmeterol [Advair 1 each IH DAILY PRN 09/23/11 250-50 Diskus] Latanoprost 0.005% [Xalatan 0.005% 1 drop EACHEYE DAILY18 09/23/11 (*)] Magnesium 250 mg PO DAILY 09/23/11 Multivitamins [Multivitamin (*)] 1 each PO DAILY 09/23/11 Omeprazole [Prilosec 20 mg] 20 mg PO DAILY 07/18/12 Aflibercept [Eylea] 2 mg IO AD 06/19/16 Amox Tr/K Clav (Augmentin) 500 mg PO BID 06/19/16 [Augmentin 500/125 MG TAB (*)] Estrogens,Conjugated [Premarin 1 daniel VAG SUTH 06/19/16 Vaginal (*)] Fluticasone/Salmeter 250/50Mcg 1 puffs IH BID 06/19/16 [Advair 250/50 (*)] Herbals/Supplements -Info Only 1 ea PO DAILY 06/19/16 Hydrocodone Bit/Homatropine 5 - 10 ml PO DAILY PRN 06/19/16 [Hydromet Syrup] Zoledronic Acid/Mannitol&Water 5 mg IV Q365D 06/19/16 [Zoledronic Acid 5 mg/100 ml] Diltiazem Cd [Cardizem ER Q24hr] 360 mg PO DAILY #30 cap 06/24/16 Losartan Potassium [Cozaar 25 mg 25 mg PO DAILY #30 tab 06/24/16 (*)] Metoprolol Tartrate [Lopressor 25 12.5 mg PO BID #30 tab 06/24/16 mg (*)] Propafenone HCl Sr [Rythmol Sr 325 mg PO Q12HRS #60 cap 06/24/16 325mg (*)] Cholecalciferol Vit D3 [Vitamin D3 2,000 units PO DAILY 06/29/16 2000 units tab (OTC)] Departure - Departure Disposition: [facility] Inpatient Acute Clinical Impression: Bradycardia, Hyperkalemia Chest pain Qualifiers: Chest pain type: unspecified Qualified Code(s): R07.9 - Chest pain, unspecified Condition: Serious Report Scribed for: Judy Albrecht Report Scribed by: Evin Hayes Date of Report: 06/29/16 Time of Report: 16:57
--- NOTE | 2016-06-29 17:08 | CPEKG ---
Heart Rate: 67 RR Interval: 896 QRSD Interval: 114 QT Interval: 484 QTC Interval: 511 QRS Roper: 76 T Wave Roper: 95 EKG Severity - ABNORMAL ECG - EKG Impression: junctional escape EKG Impression: NONSPECIFIC INTRAVENTRICULAR CONDUCTION DELAY EKG Impression: ANTERIOR INFARCT, AGE INDETERMINATE Electronically Signed By: Judy Albrecht 29-Jun-2016 21:39:58
[2016-06-29] MEDS ORDERED: CALCIUM GLUC 10% 1 GM/10 ML VIAL ONE (17:18)
[2016-06-29] MEDS ORDERED: INSULIN REGULAR HUMAN 10 UNIT, COSIGN. REQUIRED 1 EA in D10W 500 ML IV ONE (17:19)
[2016-06-29] MEDS ORDERED: D50W 25 GM/50 ML SYR IVP ONE (17:19)
[2016-06-29] MEDS ORDERED: INSULIN REGULAR HUMAN 100 UNIT/ML IVP ONE (17:19)
[2016-06-29] MEDS ORDERED: CALCIUM GLUC 10% 1 GM/10 ML VIAL IVP ONE (17:19)
[2016-06-29] MEDS ORDERED: NS 50 ML BAG IV ONE (17:20)
[2016-06-29] MEDS ORDERED: ATROPINE SULFATE 1 MG/ML VIAL ONE (17:24)
[2016-06-29] MEDS ORDERED: ATROPINE SULFATE 1 MG/10 ML SYR IVP ONE ×2 (17:27→18:35)
[2016-06-29 17:32] LABS: ADD DIFF? YES; ADD MORPH? NO; ADD SCAN? NO; ATYPICAL LYMPHOCYTE FLAG 0 (0-99); FRAGMENT RBC FLAG 0 (0-99); HEMATOCRIT 35.6 % (38.0-47.0); HEMOGLOBIN 11.7 g/dL (12.6-16.3); LEFT SHIFT FLG 30 (0-99); LIPEMIA HEMOLYSIS FLAG 80 (0-99); MEAN CELL HEMOGLOBIN CONCENTR. 32.9 g/dL (32.4-36.7); MEAN CELL VOLUME 94.2 fL (81.5-99.8); MEAN PLATELET VOLUME 8.9 fL (8.7-11.7); PLATELET CLUMPS FLAG 50 (0-99); PLATELET COUNT 276 10^3/uL (150-400); RED BLOOD CELL COUNT 3.78 10^6/uL (4.18-5.33); RED CELL DISTRIBUTION WIDTH 15.4 % (11.5-15.2)
[2016-06-29 17:39] LABS: ANION GAP 13 mEq/L (8-16); CALCIUM 9.7 mg/dL (8.5-10.4); CARBON DIOXIDE 33 mEq/l (22-31); CHLORIDE 81 mEq/L (97-110); CREATININE 0.7 mg/dL (0.6-1.0); GLOMERULAR FILTRATION RATE > 60; GLUCOSE 161 mg/dL (70-100); SODIUM 127 mEq/L (134-144)
[2016-06-29 17:51] LABS: TROPONIN I < 0.012 ng/mL (0-0.034)
[2016-06-29] MEDS ORDERED: NS 500 ML IV ONE (17:55)
[2016-06-29 18:13] LABS: INR 1.09 (0.83-1.16)
[2016-06-29 18:14] LABS: APTT 30.2 SEC (23.0-38.0)
[2016-06-29 18:47] LABS: PLATELET ESTIMATE ADEQUATE (ADEQ)
[2016-06-29] MEDS ORDERED: ONDANSETRON 4 MG/2 ML VIAL ONE (18:52)
--- NOTE | 2016-06-29 19:03 | CPEKG ---
Heart Rate: 87 RR Interval: 690 P-R Interval: 188 QRSD Interval: 96 QT Interval: 360 QTC Interval: 433 P [place]: 0 QRS [place]: 85 T Wave [place]: 76 EKG Severity - ABNORMAL ECG - EKG Impression: SUPRAVENTRICULAR BIGEMINY EKG Impression: ANTERIOR INFARCT, OLD EKG Impression: bradycardia EKG Impression: junctional escape Electronically Signed By: Judy Albrecht 29-Jun-2016 21:38:37
--- NOTE | 2016-06-29 20:01 | GCON ---
[f rep st] CONSULTATION CARDIAC CONSULTATION DATE OF CONSULTATION: 06/29/2016 CHIEF COMPLAINT: Bradycardia, chest pain, hyperkalemia. HISTORY OF PRESENT ILLNESS: This is an 80-year-old female who is known to our service and followed by Drs. Cohen and Lico. She has a history of paroxysmal atrial fibrillation with rapid ventricu lar response who is, from a cardiac standpoint, been on propafenone, diltiazem, and recently added m etoprolol. She was just discharged a few days ago after being admitted for hypoxemia on top of her chronic bronchiectasis. She had AFib without rapid ventricular response. She has no known history of coronary artery disease, had negative troponins at that time, and a CTA showing no pulmonary embo lization. Echocardiogram had no significant issues, except for mild concentric LVH, severe biatrial enlargement, and mild valvular heart disease. Pulmonary pressures were in the 45 to 50 range. Sin ce being discharged, she is doing well, taking her medicines as prescribed. This afternoon she felt a chest tightness with some shortness of breath and extreme fatigue. She was brought to the emerge ncy room where she appeared to be in either slow atrial fibrillation or junctional rhythm with escap e beats. A milligram of atropine was given. Her heart rates in the 30s came up into the 40s and 50 s. Also of note was her I-STAT, showed a potassium is 6.8. She has been started on IV hydration, i s going to be given glucose and insulin as well. She now is seen resting more comfortably with her , fully alert and oriented. She does not take anticoagulation because of fall risk. She is on aspirin. At this point, her creatinine is normal. Her troponins are normal. Her chest x-ray sh ows possible pneumonia, although she has quite a bit of apparent chronic bronchiectatic changes. He r white count is 10.7. No further chest pain at this time. I had a long discussion with her and he r . I suspect that her rhythm, she now has probable sinus kaila arrest, probably from the co mbination of medicines and hyperkalemia. In the past, talk of pacemaker had been discussed, but daniel arently was never indicated. She denies any passing out or blacking out today. 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 She has a history of hypertension, paroxysmal atrial fibrillation chronical ly. SURGICAL HISTORY: Appendectomy, hysterectomy. CURRENT MEDICATIONS: Include Cardizem 240 daily, Rythmol 325 p.o. b.i.d., Losartan 25 daily, and me toprolol 12.5 mg p.o. b.i.d. SOCIAL HISTORY: Lives with her . They live in [place] during the [place]. REVIEW OF SYSTEMS: No GI or blood loss. Fatigue ever since discharge, but worse over the last f ew hours. PHYSICAL EXAMINATION: VITAL SIGNS: Blood pressure is in 80s to 100 over 60, heart rates in the 50s at this point and appears to be a probable junctional escape rhythm, if not slow AFib with intermit tent sinus beats. GENERAL: She is an elderly female, alert and oriented x3. HEENT: Oropharynx is dry. LUNGS: Some rhonchi and occasional wheeze. CARDIOVASCULAR: Regular rate and rhythm with ex trasystoles. There was a soft systolic murmur. No JVD. ABDOMEN: Soft, nontender. MUSCULOSKELETA L: 1+ edema in her ankles. ASSESSMENT: 1. Probably sick sinus syndrome with sinus arrest and escape rhythms versus atrial fibrillation at a slow response. I suspect this could be a combination of her medications with the addition of beta mayelin, the changing dose of diltiazem. She also is mildly hyperkalemic. She has been tired sinc e discharge, but worse this afternoon. She seems to be improved with atropine and IV hydration here in the emergency room. Her EKG does not show any acute ST elevation. She has had negative troponi ns on last admission, and her troponin on admission here is normal as well. She has no known histor y of coronary artery disease. At this point, she is going to receive IV glucose and insulin per the ER physician. We will hold her medications at this time and continue to follow. I did discuss satya zhou to her and her noting that she may go into atrial fibrillation with rapid ventricular resp onse, which seems to be what she has done in the past. If need be, IV diltiazem can be given at coy t time. 2. Bronchiectasis. Chest x-ray could represent an early pneumonia, although there are many chronic issues going on. This will be further evaluated by the hospital service. The patient's and her 's questions were answered. At this point, she is hemodynamically stab le and hopefully will convert back to normal sinus rhythm with the above measures. /[id number]/MODL
[2016-06-29 21:21] LABS: ANION GAP 7 mEq/L (8-16); CALCIUM 9.3 mg/dL (8.5-10.4); CARBON DIOXIDE 31 mEq/l (22-31); CHLORIDE 87 mEq/L (97-110); CREATININE 0.8 mg/dL (0.6-1.0); GLOMERULAR FILTRATION RATE > 60; GLUCOSE 100 mg/dL (70-100); POTASSIUM 5.7 mEq/L (3.5-5.2); SODIUM 125 mEq/L (134-144)
[2016-06-29] MEDS ORDERED: ATROPINE SULFATE 1 MG/10 ML SYR ONE (22:07)
[2016-06-29] MEDS ORDERED: HOMATROPINE PO PRN (22:19)
[2016-06-29] MEDS ORDERED: ALBUTEROL 60 PUFFS/8 GM MDI IH PRN (22:19)
[2016-06-29] MEDS ORDERED: FLUTICASONE/SALMETER 250/50MCG DISKUS IH PRN (22:19)
[2016-06-29] MEDS ORDERED: [UNRECOGNIZED DRUG - OTHER] PO PRN (22:19)
[2016-06-29] MEDS ORDERED: ACETAMINOPHEN 325 MG TAB PO PRN (22:39)
--- NOTE | 2016-06-29 23:42 | GHP ---
[f rep st] HISTORY AND PHYSICAL DATE OF ADMISSION: 06/29/2016 CHIEF COMPLAINT: Weakness and shortness of breath. HISTORY: The patient is an 80-year-old woman with multiple medical problems including chronic lung disease and atrial fibrillation. She was just at this hospital, discharged on June 24, 5 days ago , after an episode of worsening shortness of breath, cough, and rapid atrial fibrillation. She was felt to have worsening bronchiectasis and was noted to have a marroquin virus infection without evidenc e of definite acute bacterial infection. She also had rapid atrial fibrillation and had increase in her dose of diltiazem and increase in Rythmol dose and continued her beta-mayelin. She was dischar [facility] to home with ongoing weakness, cough, and dyspnea, probably not terribly far from her baseline a t the time of discharge. In the last couple of days, she has had some worsening weakness, and today, had worsening cough and became severely weak and not able to eat without nausea. She came into the ER and was found to have pulses in the 30s, dipping at times into the 20s with hypotension and had atrial fibrillation. She was seen by Dr. Gomez. There is no evidence of ischemia felt present in the ER, and she was giv en some glucose and insulin, as well as treatment of a mildly elevated potassium. This did lead to some improvement in her heart rate. However, bradycardia persisted, and she is started on a dopamin e drip and admitted to the intensive care unit. Currently, still on the dopamine drip, she is more comfortable, though severely fatigued and is having heart rate in the upper 50s, low 60s, with much better blood pressures. There is nothing that sounds like angina, no pleuritic pain, no feverish sy mptoms. Her cough is nonproductive, however, it is severe and persistent. REVIEW OF SYSTEMS: Comprehensive review of systems reveals no other acute abnormalities. 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 SOCIAL HISTORY: She is and lives with her . She uses no tobacco or alcohol. She ruiz s been up walking about in the house for the last few days, but that became harder and harder yester day and today. FAMILY HISTORY: Includes DVTs and PEs, atrial fibrillation, breast cancer, coronary disease. PHYSICAL EXAMINATION: VITAL SIGNS: Today, she has a blood pressure initially of 94/36, but this go t down into the low 80s systolic over 30s diastolic. Pulse rate as low as 27, has been variable, bu t now on a dopamine drip is in the upper 50s to low 60s and with a better blood pressure, currently at 105 systolic. Respiratory rate in the 14-18 range. No fever. traffic monitor specialist showing bradycard ia with atrial fibrillation as the underlying rhythm. GENERAL: The patient is somnolent, but arous able, severely weakened, coughing fairly constantly throughout most of my visit, without production. SKIN: Warm and dry with good color. HEENT: Unremarkable. NECK: Minimal jugular venous distent ion. No other abnormalities. LUNGS: Abnormal for diffuse rales, consistent with her fibrotic lung disease. HEART: Irregular and mildly bradycardic right now. EXTREMITIES: Pulses are palpable at the wrists and feet. She does have remarkable edema of the ankles and feet. The joints are unrema rkable. There is no bleeding or bruising. NEUROLOGIC: No focal neurologic signs. LABORATORY DATA: White count 10,000, hemoglobin 11.7, which is up from 9.6 on June 24, platelets normal. INR 1.0. Sodium is low at 12, and this is down from 127 which is where she has been sittin g since June 23. She was at 131 as she entered the hospital a week ago. Looking back, she did ruiz ve a high urine sodium on June 23 at 129 with an osmolality of 399 in the urine. EKG in the ER today shows severe bradycardia with some junctional escape rhythm, nothing that looks overtly ischemic. Chest x-ray done today in the ER, my review of the images and my interpretation o f the x-ray: Diffuse interstitial abnormalities without evidence of acute infiltrate or heart failu re. The EKG as reported above was my interpretation of the EKG tracing. IMPRESSION: 1. Severe symptomatic bradycardia, most likely caused by combination of beta mayelin, calcium block er, and Rythmol which were increased last week as she had rapid atrial fibrillation then. She comes in hypotensive and very weak from this. She is responding so far to treatment, but is requiring do pamine for ongoing therapy at this point. She does not have overt signs of ischemia. There is at [facility] some right-sided heart failure, probably not left-sided heart failure at this time. Will jackie nue treating with dopamine at this point and can additionally use glucose therapy if necessary or at ropine if severe acute bradycardia develops again. In the long run, she may be at a point where pac emaker will be needed to maintain heart rate sufficient to give her rate slowing medicines to preven t tachycardia from AFib. Will watch closely for any signs of heart failure. 2. Chronic atrial fibrillation. She is on Rythmol, rate control medicines, and aspirin for this. She is not anticoagulated by choice between her and Dr. Cohen. 3. Chronic bronchiectasis and fibrotic lung disease exacerbated by recent viral infection with nghia l titers diagnostic last week. At this point, she is on antibiotics which is a chronic rotating ant ibiotic for her bronchiectasis and will continue that. She is not in respiratory failure worse than usual at this point. 4. Chronic right-sided heart failure with chronic edema. Will continue compression stockings here. I will not give her any diuretic at the moment given her hypotensive presentation. 5. Severe deconditioning. We will need to assess her strength and mobility and safety from a fall risk standpoint here in hospital. 6. High risk for deep vein thrombosis. Will need DVT prophylaxis. 7. Due to her high dose of dopamine use right now and the need for secure IV to deliver that to kunal at her bradycardia and to avoid leak causing soft tissue burn at the infusion site, will put a PICC line in. /[id number]/MODL
[2016-06-30 00:20] LABS: BASE EXCESS 3.6 mEq/L (-2.5-2.5); BICARBONATE 31 mEq/L (22-26); MEASURED OXYGEN SATURATION 91 % (92-95); PCO2 66 mmHg (34-38); PO2 66 mmHg (65-75); TCO2 33 mEq/L (23-27)
[2016-06-30] MEDS ORDERED: FAMOTIDINE 20 MG/2 ML SDV IVP ONE (00:37)
[2016-06-30] MEDS ORDERED: FAMOTIDINE 20 MG/NACL 50 ML IV ONE (01:00)
[2016-06-30] MEDS ORDERED: DOPamine/DEXTROSE/250 ML BAG IV ONE (01:28)
[2016-06-30 02:01] LABS: COLOR YELLOW; LEUKOCYTE ESTERASE,URINE NEGATIVE (NEGATIVE); NITRITE,URINE NEGATIVE (NEGATIVE)
[2016-06-30 02:05] LABS: BACTERIA TRACE /hpf (NONE SEEN); HYALINE CASTS 15-25 /lpf (0-1); MUCUS TRACE /lpf (NONE-1+)
[2016-06-30 05:35] LABS: ANION GAP 7 mEq/L (8-16); CALCIUM 8.5 mg/dL (8.5-10.4); CARBON DIOXIDE 32 mEq/l (22-31); CHLORIDE 88 mEq/L (97-110); CREATININE 0.8 mg/dL (0.6-1.0); GLOMERULAR FILTRATION RATE > 60; GLUCOSE 103 mg/dL (70-100); MAGNESIUM 1.8 mg/dL (1.6-2.3); POTASSIUM 5.5 mEq/L (3.5-5.2); SODIUM 127 mEq/L (134-144)
[2016-06-30] MEDS ORDERED: LOSARTAN POTASSIUM 25 MG TAB PO SCH (09:00)
[2016-06-30] MEDS ORDERED: FLUTICASONE/SALMETER 250/50MCG DISKUS IH SCH (09:00)
[2016-06-30] MEDS ORDERED: NON-FORMULARY NEW DRUG (Omeprazole [Prilosec 20 Mg] 20 MG) PO SCH (09:00)
[2016-06-30] MEDS: CALCIUM CARB W/VIT D 500 MG TAB PO SCH (09:19)
[2016-06-30] MEDS: MULTIVITAMINS 1 EACH TAB PO SCH (09:20)
[2016-06-30] MEDS: PRESERVISION AREDS2 FORMULA EYE VIT 1 EACH PO SCH (09:20)
[2016-06-30] MEDS: AMOX/CLAVULANATE 500/125 MG TAB PO SCH ×2 (09:20→20:49)
[2016-06-30] MEDS: FERROUS SULFATE 325 MG TAB PO SCH (09:20)
[2016-06-30] MEDS: CHOLECALCIFEROL VIT D3 2,000 UNITS TAB/CAP PO SCH (09:23)
[2016-06-30] MEDS: ENOXAPARIN 40 MG/0.4 ML SYR SC SCH (09:23)
[2016-06-30] MEDS: PANTOPRAZOLE SODIUM 40 MG TAB PO SCH (09:23)
[2016-06-30] MEDS ORDERED: NS 1,000 ML IV SCH (09:30)
--- NOTE | 2016-06-30 09:35 | SOAPPROG ---
[facility] Progress Note Assessment/Plan: Assessment:1. SSS...tachy/debbi with afib...back in NSR...recommend permanent pacer to help control future med therapy..pt is deemed not a coumadin candidate.. 2. htn..will restart losartan as needed 3. bronchiestasis..chronic atb's followed by dr wills Plan:1. re start rhythmol and get ep consult with dr moctezuma 06/30/16 09:33 Subjective: pt seen wit family present..she is alert and back to ...pt in NSR off dopamine and stable VS ...discussed the issues of last night...pt in NSR..will restat rhythmol and i recommend permanent pacer..will have dr moctezuma consult later today Objective: Vital Signs Temp Pulse Resp BP Pulse Ox 36.9 C 80 21 H 124/45 H 97 06/30/16 04:00 06/30/16 06:00 06/30/16 06:00 06/30/16 06:00 06/30/16 06:00 Laboratory Results 06/30/16 04:55 06/29/16 06/30/16 07/01/16 05:59 05:59 05:59 Intake Total 410 Output Total 900 Balance -490 PT 14.0 SEC (12.0-15.0) 06/29/16 17:57 INR 1.09 (0.83-1.16) 06/29/16 17:57 Physical Exam - Physical Exam Respiratory: rhonchi Cardiac/Chest: normal peripheral pulses, regular rate, rhythm, No edema, No gallop ICD10 Worksheet Patient Problems: Problems Problem Status Onset Bradycardia Acute Chest pain Acute Hyperkalemia Acute Atrial fibrillation Acute Chronic obstructive pulmonary disease with acute exacerbation Acute
[2016-06-30] MEDS: PROPAFENONE HCL SR 325 MG CAP PO SCH ×2 (09:39→20:49)
--- NOTE | 2016-06-30 11:28 | GCON ---
[f rep st] CONSULTATION RESTAURANT CREW PERSON CONSULTATION REASON FOR ADMISSION: Weakness, shortness of breath. The patient is an extremely pleasant 80-year-old white female with an extensive past medical history including bronchiectasis, pulmonary fibrosis, pulmonary hypertension, chronic atypical mycobacteriu m infection. She also has hypertension, atrial fibrillation, macular degeneration, hiatal hernia. She presents with worsening shortness of breath as well as rapid AFib. She was previously in the spital on June 24 and is readmitted. Over the last several days, she has had worsening shortness of breath as well as cough. She was also complaining of some nausea at that time. She went to the em ergency room and was found to have severe bradycardia with hypotension and she was subsequently admi tted. There is a possibility she may need a pacemaker placement. Currently, she is sitting up in a chair resting comfortably. PAST MEDICAL HISTORY: As above. ALLERGIES: No known allergies to medications. SOCIAL HISTORY: No history of tobacco use. No history of alcohol use. She lives at home with her . Has excellent family support. CURRENT MEDICATIONS: Include Tylenol, Proventil, Cathflo, Augmentin, aspirin, calcium, vitamin D, L ovenox, Hycodan, Xalatan, Cozaar, Protonix, Rythmol, Advair. PHYSICAL EXAM: VITAL SIGNS: Blood pressure is 124/45, pulse is 80, respirations 21, temperature is 36.9, oxygen saturation 97% on 4 L. GENERAL: She is a thin, somewhat frail elderly white female w is currently resting comfortably in no acute distress. HEENT: Eyes are PEDRO, EOMI. Throat show s no erythema or tonsillar hypertrophy. NECK: Supple. There is no cervical adenopathy. HEART: I rregularly irregular rhythm, 3/6 systolic murmur left sternal border without radiation. LUNGS: Dim inished breath sounds. Increased crackles throughout. ABDOMEN: Soft, nontender. Bowel sounds are present. EXTREMITIES: No clubbing, cyanosis or edema. LABORATORIES: White count is 10.9, hemoglobin of 11, hematocrit 35, platelet count is 276. Sodium is 127, potassium 5.5, chloride 88, CO2 is 32, BUN is 18, creatinine 0.8, glucose is 103. Urinalysi s is mostly negative. Arterial blood gas: pH 7.30, pCO2 of 66, PO2 of 66, bicarb 33, oxygen satura tion 91%. IMPRESSION: 1. Severe bradycardia. 2. History of atrial fibrillation. 3. Bronchiectasis with exacerbation. 4. Interstitial lung disease with pulmonary fibrosis. 5. History of pulmonary hypertension. 6. History of chronic atypical mycobacterium. 7. Hypertension. 8. Deconditioning. RECOMMENDATIONS: 1. Agree with current antibiotic coverage. 2. We will add steroids to the mix. 3. Cardiology to see soon anticipate need for pacemaker placement. 4. DVT and PE prophylaxis. 5. Stress ulcer prophylaxis. 6. Frequent nebulized treatments with albuterol. /[id number]/MODL
[2016-06-30] MEDS: MAGNESIUM OXIDE 400 MG TAB PO SCH (14:00)
[2016-06-30] MEDS: predniSONE 20 MG TAB PO SCH (14:01)
[2016-06-30] MEDS: MAGNESIUM 250 MG PO SCH ×2 (14:05→14:07)
--- NOTE | 2016-06-30 15:54 | HOSPPROG ---
Hospitalist Progress Note Assessment/Plan: #Acute toxic encephalopathy: improved today per family -negative CTH, UA and CXR -likely due to multiple cardiac meds. #Hyperkalemia: trending down. Repeat BMP this evening #Hypovolemic hyponatremia: gentle IVFs. #Sick sinus syndrome: initially needed dopamine in ER. Now in NSR. Dr. Gomez evaluated and will speak Dr Moreland about pacer placement #Atrial fibrillation: not tolerating multiple meds needed for control. Cont Rythmol. Not anticoagulation candidate #Benign HTN: restart Losartan if BP elevated; normotensive now #Chronic bronchiectasis: followed by Dr. Barfield. Pred was added today #Diet: regular #DVT ppx: Lovenox #Disp: warrants ICU admission with symptomatic bradycardia, cont telemetry, further cardiac evaluation Subjective: no fever/chills/sweats. Chronic cough Objective: Vital Signs Temp Pulse Resp BP Pulse Ox 36.9 C 74 21 H 118/49 L 98 06/30/16 04:00 06/30/16 09:40 06/30/16 06:00 06/30/16 09:40 06/30/16 09:40 Laboratory Results 06/30/16 04:55 06/29/16 06/30/16 07/01/16 05:59 05:59 05:59 Intake Total 410 Output Total 900 Balance -490 PT 14.0 SEC (12.0-15.0) 06/29/16 17:57 INR 1.09 (0.83-1.16) 06/29/16 17:57 - Physical Exam Constitutional: no apparent distress Eyes: PERRL Cardiovascular: regular rate and rhythym Respiratory: rhonchi Gastrointestinal: normoactive bowel sounds Genitourinary: no bladder fullness Skin: warm, other (poor skin tugor) Musculoskeletal: full muscle strength Neurologic: AAOx3 (alert x3, but slow to answer ) Psychiatric: poor memory ICD10 Worksheet Patient Problems: Problems Problem Status Onset Bradycardia Acute Chest pain Acute Hyperkalemia Acute Atrial fibrillation Acute Chronic obstructive pulmonary disease with acute exacerbation Acute
[2016-06-30 16:47] LABS: ANION GAP 8 mEq/L (8-16); CALCIUM 8.6 mg/dL (8.5-10.4); CARBON DIOXIDE 33 mEq/l (22-31); CHLORIDE 86 mEq/L (97-110); CREATININE 0.9 mg/dL (0.6-1.0); GLOMERULAR FILTRATION RATE 60; GLUCOSE 161 mg/dL (70-100); POTASSIUM 6.1 mEq/L (3.5-5.2); SODIUM 127 mEq/L (134-144)
[2016-06-30] MEDS: LATANOPROST 0.005% 2.5 ML OPHT DROPS EACHEYE SCH (18:36)
[2016-06-30] MEDS ORDERED: SODIUM POLY SULF 15 GM/60 ML BOTTLE PO ONE (20:09)
[2016-06-30] MEDS: ASPIRIN 81 MG CHEWABLE TAB PO SCH (20:49)
--- NOTE | 2016-06-30 20:50 | PDCARPN ---
Cardiology Progress Note Chief Complaint: Bradycardia Assessment/Plan: Assessment: Atrial fibrillation Bradycardia Hyperkalemia Pulm - bronchiectasis, chronic SHONDA infection, pulmonary hypertension Plan: -Recently admitted with AF with RVR. At that time CCB dose increased and BB + Rythmol added. This could have contributed to bradycardia. Reviewed ER ECG, c.w. junctional escape rhythm in 30s with symptoms. At that time she was also hyperkalemic. Likely that hyperkalemia and increase in dose of medications contributed. -She has also tachycardia with AFIB, prior admission with symptomatic tachycardia -Tachy-debbi syndrome - this situation is likely to recur in the future without permanent pacemaker in place. -At this time we can decrease the dose of medications and watch OR consider implanting pacemaker this admission. Both options reviewed with patient and . Also offered to them that they can discuss this further with Dr. Cohen, her automotive porter and decide as outpatient -Risks of PPM - , tamponade, pneumothorax, bleeding, infection d.w. them They will decide re. PM, tentatively planned for tomorrow AM 06/30/16 20:44 Subjective: Asked to see pt by RT Visited with patient with and RN present in the room Pt resting comfortably, denies any complaints Reviewed/Discussed With: family, multidisciplinary team Time Spent With Patient: 30 min Objective: Vital Signs (8 Hrs) Temp Pulse Resp BP Pulse Ox 06/30/16 18:32 37.1 C 82 109/52 L 95 06/30/16 17:00 36.8 C 71 108/45 L 95 06/30/16 16:00 36.8 C 71 106/42 L 97 06/30/16 15:52 36.9 C 70 20 101/40 L 94 Intake/Output (24 Hrs) 06/29/16 06/30/16 07/01/16 11:59 11:59 11:59 Intake Total 410 1310 Output Total 900 900 Balance -490 410 Intake: Oral (ml) 50 960 IV Intake (ml) 150 350 IV Infused (ml) 210 DOPamine/DEXTROSE 250 ml 210 @ Titrate IV EDNOW ONE Rx #:[id number] Output: Urine (ml) 900 900 Catheter 900 900 Other: Weight 67.4 kg Number of Stools Catheter 1 Result Diagrams: 06/29/16 16:50 06/30/16 16:25 Telemetry: NSR ICD10 Worksheet Patient Problems: Problems Problem Status Onset Atrial fibrillation Acute Chronic obstructive pulmonary disease with acute exacerbation Acute Bradycardia Acute Hyperkalemia Acute Chest pain Acute
[2016-06-30] MEDS: FLUTICASONE/SALMETER 250/50MCG DISKUS IH SCH (21:10)
[2016-07-01 00:07] LABS: ANION GAP 8 mEq/L (8-16); CALCIUM 8.8 mg/dL (8.5-10.4); CARBON DIOXIDE 30 mEq/l (22-31); CHLORIDE 88 mEq/L (97-110); CREATININE 0.7 mg/dL (0.6-1.0); GLOMERULAR FILTRATION RATE > 60; GLUCOSE 140 mg/dL (70-100); POTASSIUM 5.8 mEq/L (3.5-5.2); SODIUM 126 mEq/L (134-144)
[2016-07-01] MEDS: HYDROCODONE/HOMATROPINE HYCODAN 5 ML UDL PO PRN (00:18)
[2016-07-01] MEDS ORDERED: SODIUM POLY SULF 15 GM/60 ML BOTTLE PO ONE (00:36)
[2016-07-01 04:57] LABS: ADD DIFF? YES; ADD MORPH? NO; ADD SCAN? NO; ATYPICAL LYMPHOCYTE FLAG 0 (0-99); FRAGMENT RBC FLAG 0 (0-99); HEMATOCRIT 30.4 % (38.0-47.0); HEMOGLOBIN 10.1 g/dL (12.6-16.3); LEFT SHIFT FLG 70 (0-99); LIPEMIA HEMOLYSIS FLAG 80 (0-99); MEAN CELL HEMOGLOBIN 32.1 pg (27.9-34.1); MEAN CELL HEMOGLOBIN CONCENTR. 33.2 g/dL (32.4-36.7); MEAN CELL VOLUME 96.5 fL (81.5-99.8); MEAN PLATELET VOLUME 8.8 fL (8.7-11.7); PLATELET CLUMPS FLAG 0 (0-99); PLATELET COUNT 162 10^3/uL (150-400); RED BLOOD CELL COUNT 3.15 10^6/uL (4.18-5.33); RED CELL DISTRIBUTION WIDTH 15.5 % (11.5-15.2)
[2016-07-01 05:04] LABS: INR 1.22 (0.83-1.16); PROTIME(PATIENT) 15.4 SEC (12.0-15.0)
[2016-07-01 05:05] LABS: APTT 31.4 SEC (23.0-38.0)
[2016-07-01 05:20] LABS: ALANINE AMINOTRANSFERASE 109 IU/L (9-52); ALKALINE PHOSPHATASE 120 IU/L (38-126); ANION GAP 6 mEq/L (8-16); ASPARTATE AMINOTRANSFERASE 60 IU/L (14-46); BILIRUBIN,TOTAL 0.5 mg/dL (0.1-1.4); CALCIUM 8.5 mg/dL (8.5-10.4); CARBON DIOXIDE 34 mEq/l (22-31); CHLORIDE 89 mEq/L (97-110); CREATININE 0.7 mg/dL (0.6-1.0); GLOMERULAR FILTRATION RATE > 60; GLUCOSE 127 mg/dL (70-100); POTASSIUM 5.1 mEq/L (3.5-5.2); SODIUM 129 mEq/L (134-144); TOTAL PROTEIN 6.4 g/dL (6.3-8.2)
[2016-07-01 05:26] LABS: MACROCYTES 1+; PLATELET ESTIMATE DECREASED (ADEQ); POLYCHROMASIA 1+
[2016-07-01] MEDS ORDERED: BACITRACIN IRRIGATION/NS 50,000 UNITS/1,000 ML BTL IRR ONE (06:00)
[2016-07-01] MEDS ORDERED: NS 1,000 ML IV ONE (06:00)
[2016-07-01] MEDS: CHOLECALCIFEROL VIT D3 2,000 UNITS TAB/CAP PO SCH (08:57)
[2016-07-01] MEDS: FERROUS SULFATE 325 MG TAB PO SCH (08:57)
[2016-07-01] MEDS: ENOXAPARIN 40 MG/0.4 ML SYR SC SCH (08:57)
[2016-07-01] MEDS: MAGNESIUM OXIDE 400 MG TAB PO SCH (08:57)
[2016-07-01] MEDS: PROPAFENONE HCL SR 325 MG CAP PO SCH ×2 (08:57→20:46)
[2016-07-01] MEDS: PRESERVISION AREDS2 FORMULA EYE VIT 1 EACH PO SCH (08:58)
[2016-07-01] MEDS: PANTOPRAZOLE SODIUM 40 MG TAB PO SCH (08:58)
[2016-07-01] MEDS: AMOX/CLAVULANATE 500/125 MG TAB PO SCH ×2 (08:58→20:46)
[2016-07-01] MEDS: MULTIVITAMINS 1 EACH TAB PO SCH (08:58)
[2016-07-01] MEDS: CALCIUM CARB W/VIT D 500 MG TAB PO SCH (08:58)
[2016-07-01] MEDS: predniSONE 20 MG TAB PO SCH (08:58)
[2016-07-01] MEDS: DILTIAZEM 60 MG TAB PO SCH ×3 (08:58→20:46)
[2016-07-01] MEDS: FLUTICASONE/SALMETER 250/50MCG DISKUS IH SCH ×2 (09:00→20:47)
--- NOTE | 2016-07-01 09:09 | PDINTPN ---
Service Desk Director Progress Note Assessment/Plan: Assessment/Plan: * Atrial fibrillation-patient currently with a high rate Dr. Moreland to see * Bradycardia-going for pacemaker today. * Bronchiectasis * Interstitial lung disease with pulmonary fibrosis * Pulmonary hypertension * Respiratory failure-given her extensive lung disease and her use of BiPAP here in the hospital, will attempt to arrange noninvasive ventilation as an outpatient. Subjective: Patient states she feels fatigued and tired today. Her breathlessness is mostly unchanged. She denies any chest pain pleuritic-type chest pain or angina equivalent. She is anticipating pacemaker placement later on today Objective: Vital Signs Temp Pulse Resp BP Pulse Ox 36.8 C 108 H 26 H 117/46 L 99 06/30/16 20:00 07/01/16 06:00 07/01/16 06:00 07/01/16 06:00 07/01/16 06:00 Microbiology 06/30/16 21:00 - Final Sputum, Expectorated Laboratory Results 07/01/16 04:40 07/01/16 04:40 06/30/16 07/01/16 07/02/16 05:59 05:59 05:59 Intake Total 410 1835 Output Total 900 1175 300 Balance -490 660 -300 PT 15.4 SEC (12.0-15.0) H 07/01/16 04:40 INR 1.22 (0.83-1.16) H 07/01/16 04:40 Physical Exam - Physical Exam General Appearance: alert, no apparent distress EENT: PERRL/EOMI, normal ENT inspection Neck: non-tender, full range of motion, supple, normal inspection Respiratory: crackles (Throughout both lungs), No respiratory distress, No stridor, No wheezing Cardiac/Chest: tachycardia, irregularly irregular Peripheral Pulses: 2+: carotid (R), carotid (L), femoral (R), femoral (L), dorsalis-pedis (R), dorsalis-pedis (L) Abdomen: normal bowel sounds, non-tender, soft Pelvic Exam: deferred Rectal: deferred Skin: normal color, warm/dry Extremities: normal range of motion, non-tender, normal inspection, normal capillary refill Neuro/Psych: no motor/sensory deficits, alert, normal mood/affect, oriented x 3 ICD10 Worksheet Patient Problems: Problems Problem Status Onset Bradycardia Acute Chest pain Acute Hyperkalemia Acute Atrial fibrillation Acute Chronic obstructive pulmonary disease with acute exacerbation Acute
[2016-07-01] MEDS ORDERED: MDI IH PRN (09:25)
[2016-07-01] MEDS ORDERED: ALBUTEROL IH PRN (09:25)
[2016-07-01] MEDS: ONDANSETRON 4 MG/2 ML VIAL IVP PRN (09:30)
[2016-07-01] MEDS ORDERED: DILTIAZEM HCL/D5W 125 ML IV SCH (10:00)
[2016-07-01] MEDS ORDERED: DILTIAZEM 25 MG/5 ML VIAL IVP ONE (10:00)
--- NOTE | 2016-07-01 11:21 | HOSPPROG ---
Hospitalist Progress Note Assessment/Plan: #Acute toxic encephalopathy: improved -negative CTH, UA and CXR -likely due to multiple cardiac meds. #Atrial fib with RVR: started Dilt gtt and PO. #Hyperkalemia: resolved. Repeat BMP this afternoon. #Hypovolemic hyponatremia: gentle IVFs. #Sick sinus syndrome: now in a fib with RVR. Rythmol and Dilt today. Patient would like to wait on pace maker #Benign HTN: restart Losartan if BP elevated; normotensive now #Chronic bronchiectasis: followed by Dr. Barfield. Pred was added today #Diet: regular #DVT ppx: Lovenox #Disp: warrants ICU admission with a fib RVR, warrants IV dilt, telemetry Subjective: mild abd discomfort. Constipated Objective: Vital Signs Temp Pulse Resp BP Pulse Ox 36.6 C 121 H 23 H 92/35 L 96 07/01/16 07:00 07/01/16 10:00 07/01/16 10:00 07/01/16 09:00 07/01/16 10:00 Microbiology 06/30/16 21:00 - Final Sputum, Expectorated Laboratory Results 07/01/16 04:40 07/01/16 04:40 06/30/16 07/01/16 07/02/16 05:59 05:59 05:59 Intake Total 410 1835 Output Total 900 1175 300 Balance -490 660 -300 PT 15.4 SEC (12.0-15.0) H 07/01/16 04:40 INR 1.22 (0.83-1.16) H 07/01/16 04:40 - Physical Exam Constitutional: no apparent distress Eyes: PERRL Ears, Nose, Mouth, Throat: moist mucous membranes Cardiovascular: irregularly irregular, tachycardia Respiratory: rhonchi Gastrointestinal: normoactive bowel sounds, soft, non-tender abdomen, no palpable masses Genitourinary: no bladder fullness Skin: warm Musculoskeletal: generalized weakness Neurologic: AAOx3, CN II-XII Intact ICD10 Worksheet Patient Problems: Problems Problem Status Onset Bradycardia Acute Chest pain Acute Hyperkalemia Acute Atrial fibrillation Acute Chronic obstructive pulmonary disease with acute exacerbation Acute
[2016-07-01] MEDS ORDERED: BISACODYL 10 MG SUPP PR PRN (11:22)
[2016-07-01] MEDS ORDERED: LACTULOSE 20 GM/30 ML UDCUP PO PRN (11:22)
[2016-07-01] MEDS ORDERED: MAGNESIUM HYDROXIDE 30 ML UDCUP PO PRN (11:22)
--- NOTE | 2016-07-01 11:46 | PDCARPN ---
Cardiology Progress Note Chief Complaint: rapid heart rate Assessment/Plan: Assessment: Atrial fibrillation Bradycardia Hyperkalemia Pulm - bronchiectasis, chronic SHONDA infection, pulmonary hypertension Plan: - Tachycardia with atrial flutter today. Patient is not a candidate for atrial flutter or atrial fibrillation ablation. - She does not want a pacemaker at this time, will try to control her arrhythmia with medications. Continue Rythmol at current dose. Will start Cardizem 60 mg three times daily and also start intravenous Cardizem for rate control. Intravenous Cardizem can be Weaned off after 2 doses of p. o. Cardizem if rates are well controlled. - she will likely continue having either significant bradycardia or tachycardia and I anticipate her arrhythmias will be difficult to control without the pacemaker. Plan pacemaker when patient is ready for it. Also discussed with them that the best option for her in the long-term may be pacemaker and AV node ablation. Did discuss with her and her that AV node ablation, if performed will leave her pacemaker dependent. - She is deemed not to be a anticoagulation candidate due to high risk for bleed per her plug making operator Dr. Cohen and is on aspirin for anticoagulation 07/01/16 11:44 Subjective: patient is seen, And patient's RN present in the room. Reports palpitations with rapid heart rate and generally not feeling well. Denies chest pain. Time Spent With Patient: 20 minutes Objective: Vital Signs (8 Hrs) Temp Pulse Resp BP Pulse Ox 07/01/16 11:00 99 17 89/55 L 97 07/01/16 10:00 121 H 23 H 96 07/01/16 09:00 139 H 23 H 92/35 L 98 07/01/16 08:00 134 H 24 H 89/32 L 94 07/01/16 07:00 36.6 C 134 H 21 H 130/66 H 98 07/01/16 06:00 108 H 26 H 117/46 L 99 07/01/16 05:00 115 H 17 111/52 L 99 07/01/16 04:00 110 H 24 H 113/51 L 97 Intake/Output (24 Hrs) 06/29/16 06/30/16 07/01/16 11:59 11:59 11:59 Intake Total 410 1835 Output Total 900 1475 Balance -490 360 Intake: Oral (ml) 50 1260 IV Intake (ml) 150 350 IV Infused (ml) 210 225 DOPamine/DEXTROSE 250 ml 210 @ Titrate IV EDNOW ONE Rx #:[id number] Ns 1,000 ml @ 75 mls/hr 225 IV CONT ELIZABETH Rx#: [id number] Output: Urine (ml) 900 1475 Catheter 900 900 Toilet 575 Other: Weight 67.4 kg Number of Stools Catheter 1 Toilet 1 Result Diagrams: 07/01/16 04:40 07/01/16 04:40 Telemetry: atrial flutter with intermittent 2-1 conduction to the ventricles with heart rates 140 to 150 beats per minute. At other times heart rates are 120 beats per minute with variable conduction of atrial flutter to the ventricles. ICD10 Worksheet Patient Problems: Problems Problem Status Onset Atrial fibrillation Acute Chronic obstructive pulmonary disease with acute exacerbation Acute Bradycardia Acute Hyperkalemia Acute Chest pain Acute
[2016-07-01 13:33] LABS: ANION GAP 8 mEq/L (8-16); CALCIUM 8.3 mg/dL (8.5-10.4); CARBON DIOXIDE 31 mEq/l (22-31); CHLORIDE 86 mEq/L (97-110); CREATININE 0.8 mg/dL (0.6-1.0); GLOMERULAR FILTRATION RATE > 60; GLUCOSE 168 mg/dL (70-100); POTASSIUM 4.7 mEq/L (3.5-5.2); SODIUM 125 mEq/L (134-144)
[2016-07-01] MEDS: LATANOPROST 0.005% 2.5 ML OPHT DROPS EACHEYE SCH ×2 (19:20→20:47)
[2016-07-01] MEDS ORDERED: NS 1,000 ML IV SCH (19:30)
--- NOTE | 2016-07-01 19:32 | WOCRNPDOC ---
WOCRN Advanced Assessment Note - Skin Integrity Problem, Advanced Assess Left Anterior Elbow Dressing Type: Open to Air Skin Integrity Problem Comment: Contusion from BP cuff. Keep cuff off area to help heal. Please reconsult prn. No pressure injury noted.
[2016-07-01] MEDS: ASPIRIN 81 MG CHEWABLE TAB PO SCH (20:46)
[2016-07-01] MEDS: SENNOSIDES/DOCUSATE SODIUM TAB PO SCH (20:47)
[2016-07-02 05:33] LABS: HEMATOCRIT 29.5 % (38.0-47.0); HEMOGLOBIN 9.5 g/dL (12.6-16.3); MEAN CELL HEMOGLOBIN 31.4 pg (27.9-34.1); MEAN CELL HEMOGLOBIN CONCENTR. 32.2 g/dL (32.4-36.7); MEAN CELL VOLUME 97.4 fL (81.5-99.8); RED BLOOD CELL COUNT 3.03 10^6/uL (4.18-5.33); RED CELL DISTRIBUTION WIDTH 15.7 % (11.5-15.2)
[2016-07-02 05:56] LABS: ANION GAP 6 mEq/L (8-16); CALCIUM 7.9 mg/dL (8.5-10.4); CARBON DIOXIDE 36 mEq/l (22-31); CHLORIDE 86 mEq/L (97-110); CREATININE 0.9 mg/dL (0.6-1.0); GLOMERULAR FILTRATION RATE 60; GLUCOSE 120 mg/dL (70-100); POTASSIUM 4.9 mEq/L (3.5-5.2); SODIUM 128 mEq/L (134-144)
[2016-07-02] MEDS: FLUTICASONE/SALMETER 250/50MCG DISKUS IH SCH ×2 (08:59→22:31)
--- NOTE | 2016-07-02 09:27 | PDINTPN ---
Creative Art Therapist Progress Note Assessment/Plan: Assessment/Plan: * Atrial fibrillation-patient currently with a high rate Dr. Moreland to see * Bradycardia-going for pacemaker today. * Bronchiectasis-sputum positive. -agree with azithromycin and Rocephin at this time. -will hold steroids at this time. * Interstitial lung disease with pulmonary fibrosis * Pulmonary hypertension * Respiratory failure-given her extensive lung disease and her use of BiPAP here in the hospital, will attempt to arrange noninvasive ventilation as an outpatient. Subjective: Sitting up eating breakfast. Patient states she has more energy today. She does complain of cough Objective: Vital Signs Temp Pulse Resp BP Pulse Ox 36.5 C 124 H 23 H 104/48 L 96 07/02/16 07:00 07/02/16 08:59 07/02/16 08:59 07/02/16 08:59 07/02/16 08:59 Microbiology 06/30/16 21:00 - Final Sputum, Expectorated Laboratory Results 07/02/16 05:15 07/02/16 05:15 07/01/16 07/02/16 07/03/16 05:59 05:59 05:59 Intake Total 1835 1575 Output Total 1175 500 Balance 660 1075 PT 15.4 SEC (12.0-15.0) H 07/01/16 04:40 INR 1.22 (0.83-1.16) H 07/01/16 04:40 Physical Exam - Physical Exam General Appearance: WD/WN, alert EENT: PERRL/EOMI, normal ENT inspection, pharynx normal, TMs normal Neck: non-tender, full range of motion, supple, normal inspection Respiratory: crackles (Scattered in the bases), prolonged expiration, No wheezing Cardiac/Chest: tachycardia, systolic murmur, irregularly irregular Peripheral Pulses: 2+: carotid (R), carotid (L), femoral (R), femoral (L), dorsalis-pedis (R), dorsalis-pedis (L) Abdomen: normal bowel sounds, non-tender, soft Pelvic Exam: deferred Rectal: deferred Back: Normal inspection Skin: normal color, warm/dry Extremities: normal range of motion, non-tender, normal inspection, normal capillary refill Neuro/Psych: no motor/sensory deficits, alert, normal mood/affect, oriented x 3 ICD10 Worksheet Patient Problems: Problems Problem Status Onset Bradycardia Acute Chest pain Acute Hyperkalemia Acute Atrial fibrillation Acute Chronic obstructive pulmonary disease with acute exacerbation Acute
[2016-07-02] MEDS ORDERED: AZITHROMYCIN 250 MG TAB PO SCH (09:30)
[2016-07-02] MEDS ORDERED: AZITHROMYCIN IV 500 MG in D5W 250 ML IV SCH (09:30)
[2016-07-02] MEDS ORDERED: DILTIAZEM 60 MG TAB PO SCH (09:37)
--- NOTE | 2016-07-02 09:41 | SOAPPROG ---
SOTAMIR Progress Note Assessment/Plan: Assessment:1. SSS...tachy/debbi with afib...back in AFIB...recommend permanent pacer to help control future med therapy..pt is deemed not a coumadin candidate..continue rhythmol and cardiazem..recent lopreesor caused severe bradycardia 2. htn..will restart losartan as needed 3. bronchiestasis..chronic atb's followed by dr wills Plan:1. increase cardiazem po and can tranfer to pcu...d/w elpidio 06/30/16 09:33 07/02/16 09:41 Subjective: pt without cv c/o ....increased wbc and continues in afib...henodynaically stable Objective: Vital Signs Temp Pulse Resp BP Pulse Ox 36.5 C 124 H 23 H 104/48 L 96 07/02/16 07:00 07/02/16 08:59 07/02/16 08:59 07/02/16 08:59 07/02/16 08:59 Microbiology 06/30/16 21:00 - Final Sputum, Expectorated Laboratory Results 07/02/16 05:15 07/02/16 05:15 07/01/16 07/02/16 07/03/16 05:59 05:59 05:59 Intake Total 1835 1575 Output Total 1175 500 Balance 660 1075 PT 15.4 SEC (12.0-15.0) H 07/01/16 04:40 INR 1.22 (0.83-1.16) H 07/01/16 04:40 Physical Exam - Physical Exam Respiratory: rhonchi Cardiac/Chest: systolic murmur, irregularly irregular ICD10 Worksheet Patient Problems: Problems Problem Status Onset Bradycardia Acute Chest pain Acute Hyperkalemia Acute Atrial fibrillation Acute Chronic obstructive pulmonary disease with acute exacerbation Acute
[2016-07-02] MEDS: CALCIUM CARB W/VIT D 500 MG TAB PO SCH (09:47)
[2016-07-02] MEDS: MULTIVITAMINS 1 EACH TAB PO SCH (09:47)
[2016-07-02] MEDS: FERROUS SULFATE 325 MG TAB PO SCH (09:47)
[2016-07-02] MEDS: PRESERVISION AREDS2 FORMULA EYE VIT 1 EACH PO SCH (09:47)
[2016-07-02] MEDS: SENNOSIDES/DOCUSATE SODIUM TAB PO SCH ×2 (09:47→21:15)
[2016-07-02] MEDS: MAGNESIUM OXIDE 400 MG TAB PO SCH (09:47)
[2016-07-02] MEDS: CHOLECALCIFEROL VIT D3 2,000 UNITS TAB/CAP PO SCH (09:47)
[2016-07-02] MEDS: PANTOPRAZOLE SODIUM 40 MG TAB PO SCH (09:48)
[2016-07-02] MEDS: PROPAFENONE HCL SR 325 MG CAP PO SCH ×2 (09:48→21:15)
[2016-07-02] MEDS: ENOXAPARIN 40 MG/0.4 ML SYR SC SCH (09:48)
[2016-07-02] MEDS: DILTIAZEM 30 MG TAB PO SCH ×3 (10:01→21:11)
[2016-07-02] MEDS: DILTIAZEM 60 MG TAB PO SCH (11:27)
[2016-07-02] MEDS: predniSONE 20 MG TAB PO SCH (11:27)
[2016-07-02] MEDS: AMOX/CLAVULANATE 500/125 MG TAB PO SCH (11:27)
--- NOTE | 2016-07-02 14:15 | HOSPPROG ---
Hospitalist Progress Note Assessment/Plan: #Acute toxic encephalopathy: resolved -negative CTH, UA and CXR -likely due to multiple cardiac meds. #Leukocytosis: pred contributing, but Pseudomonas in sputum. Change to Cefepime #Acute exacerbation of bronchiectasis: Pseudomonas. Resistant to LQ. Will place PICC and tx 7 days with Cefepime #Atrial fib with RVR: off gtt. Increase PO to 75mg TID #Hyperkalemia: resolved. Repeat BMP this afternoon. #Hypovolemic hyponatremia: improved with IVFs #Sick sinus syndrome: now in a fib with RVR. Rythmol and Dilt today. Patient would like to wait on pace maker #Benign HTN: restart Losartan if BP elevated; normotensive now #Chronic bronchiectasis: followed by Dr. Barfield. Pred was added today #Diet: regular #DVT ppx: Lovenox #Disp: warrants ICU admission with a fib RVR, warrants IV dilt, telemetry Subjective: tired still, mild cough Objective: Vital Signs Temp Pulse Resp BP Pulse Ox 36.7 C 80 17 92/44 L 96 07/02/16 12:44 07/02/16 12:44 07/02/16 12:44 07/02/16 12:44 07/02/16 12:44 Microbiology 06/30/16 21:00 - Final Sputum, Expectorated Laboratory Results 07/02/16 05:15 07/02/16 05:15 07/01/16 07/02/16 07/03/16 05:59 05:59 05:59 Intake Total 1835 1575 Output Total 1175 500 100 Balance 660 1075 -100 PT 15.4 SEC (12.0-15.0) H 07/01/16 04:40 INR 1.22 (0.83-1.16) H 07/01/16 04:40 - Physical Exam Constitutional: other (frail) Eyes: PERRL Ears, Nose, Mouth, Throat: moist mucous membranes Cardiovascular: irregularly irregular, tachycardia Respiratory: rhonchi Gastrointestinal: normoactive bowel sounds, soft, non-tender abdomen Genitourinary: no bladder fullness Skin: warm Musculoskeletal: full muscle strength Neurologic: AAOx3 Psychiatric: interacting appropriately ICD10 Worksheet Patient Problems: Problems Problem Status Onset Bradycardia Acute Chest pain Acute Hyperkalemia Acute Atrial fibrillation Acute Chronic obstructive pulmonary disease with acute exacerbation Acute
[2016-07-02] MEDS: CEFEPIME HCL 2 GM in D5W 100 ML IV SCH ×2 (15:43→21:11)
[2016-07-02] MEDS: POLYETHYLENE GLYCOL 3350 17 GM PKT PO PRN (18:15)
[2016-07-02] MEDS: ASPIRIN 81 MG CHEWABLE TAB PO SCH (21:15)
[2016-07-02] MEDS: LATANOPROST 0.005% 2.5 ML OPHT DROPS EACHEYE SCH (22:52)
[2016-07-02] MEDS: HYDROCODONE/HOMATROPINE HYCODAN 5 ML UDL PO PRN (22:58)
[2016-07-03 05:04] LABS: HEMATOCRIT 30.2 % (38.0-47.0); HEMOGLOBIN 9.8 g/dL (12.6-16.3); MEAN CELL HEMOGLOBIN 31.5 pg (27.9-34.1); MEAN CELL HEMOGLOBIN CONCENTR. 32.5 g/dL (32.4-36.7); MEAN CELL VOLUME 97.1 fL (81.5-99.8); RED BLOOD CELL COUNT 3.11 10^6/uL (4.18-5.33); RED CELL DISTRIBUTION WIDTH 15.5 % (11.5-15.2)
[2016-07-03 05:22] LABS: ANION GAP 3 mEq/L (8-16); CALCIUM 8.2 mg/dL (8.5-10.4); CARBON DIOXIDE 36 mEq/l (22-31); CHLORIDE 84 mEq/L (97-110); CREATININE 0.6 mg/dL (0.6-1.0); GLOMERULAR FILTRATION RATE > 60; GLUCOSE 92 mg/dL (70-100); POTASSIUM 5.3 mEq/L (3.5-5.2); SODIUM 123 mEq/L (134-144)
[2016-07-03] MEDS: NS 1,000 ML IV SCH ×2 (06:36→19:36)
[2016-07-03] MEDS: FLUTICASONE/SALMETER 250/50MCG DISKUS IH SCH ×2 (08:04→20:51)
[2016-07-03] MEDS: ALBUTEROL 3 ML DEYVIAL IH PRN ×2 (08:05→16:32)
[2016-07-03] MEDS: DILTIAZEM 30 MG TAB PO SCH (08:23)
[2016-07-03] MEDS: PANTOPRAZOLE SODIUM 40 MG TAB PO SCH (08:29)
[2016-07-03] MEDS: PROPAFENONE HCL SR 325 MG CAP PO SCH ×2 (08:30→20:45)
[2016-07-03] MEDS: CEFEPIME HCL 2 GM in D5W 100 ML IV SCH ×2 (08:34→20:45)
[2016-07-03] MEDS: FERROUS SULFATE 325 MG TAB PO SCH (10:05)
[2016-07-03] MEDS: MULTIVITAMINS 1 EACH TAB PO SCH (10:05)
[2016-07-03] MEDS: CHOLECALCIFEROL VIT D3 2,000 UNITS TAB/CAP PO SCH (10:05)
[2016-07-03] MEDS: PRESERVISION AREDS2 FORMULA EYE VIT 1 EACH PO SCH (10:05)
[2016-07-03] MEDS: MAGNESIUM OXIDE 400 MG TAB PO SCH (10:05)
[2016-07-03] MEDS: ENOXAPARIN 40 MG/0.4 ML SYR SC SCH (10:06)
--- NOTE | 2016-07-03 10:18 | SOAPPROG ---
STEWART Progress Note Assessment/Plan: Assessment:1. SSS...tachy/debbi with afib...back in AFIB...recommend permanent pacer to help control future med therapy..pt is deemed not a coumadin candidate..continue rhythmol and cardiazem..recent lopreesor caused severe bradycardia...pt has agree to permanent pacer placement..will plan on wednesday 2. htn..will restart losartan as needed 3. bronchiestasis..chronic atb's followed by dr wills..currently on iv atb's Plan:1. increase cardiazem po and can tranfer to pcu...?permanent pacer on wednesday06/30/16 09:33 07/02/16 09:41 07/03/16 10:18 Objective: Vital Signs Temp Pulse Resp BP Pulse Ox 36.9 C 141 H 19 118/76 97 07/03/16 07:08 07/03/16 08:23 07/03/16 08:09 07/03/16 07:08 07/03/16 08:09 Microbiology 06/30/16 21:00 - Final Sputum, Expectorated Sputum Culture - Final Pseudomonas Aeruginosa Gram Neg Ortiz Nonlactose Ferm. Laboratory Results 07/03/16 04:55 07/03/16 04:55 07/02/16 07/03/16 07/04/16 05:59 05:59 05:59 Intake Total 1575 529 Output Total 500 400 Balance 1075 129 PT 15.4 SEC (12.0-15.0) H 07/01/16 04:40 INR 1.22 (0.83-1.16) H 07/01/16 04:40 ICD10 Worksheet Patient Problems: Problems Problem Status Onset Atrial fibrillation Acute Chronic obstructive pulmonary disease with acute exacerbation Acute Bradycardia Acute Hyperkalemia Acute Chest pain Acute
[2016-07-03] MEDS: CALCIUM CARB W/VIT D 500 MG TAB PO SCH (10:23)
[2016-07-03] MEDS: SENNOSIDES/DOCUSATE SODIUM TAB PO SCH ×2 (10:41→20:45)
--- NOTE | 2016-07-03 12:28 | PDINTPN ---
Patient Care Technician Instructor Progress Note Assessment/Plan: Assessment/Plan: * Atrial fibrillation-patient currently with a high rate - * Bradycardia-going for pacemaker perhaps early next week * Bronchiectasis-sputum positive Pseudomonas. -agree with azithromycin and Rocephin at this time. -continue steroids * Interstitial lung disease with pulmonary fibrosis * Pulmonary hypertension * Respiratory failure-given her extensive lung disease and her use of BiPAP here in the hospital, will attempt to arrange noninvasive ventilation as an outpatient. Subjective: Resting comfortably. Patient states she feels less fatigued and is stronger. Cough is still present but less Objective: Vital Signs Temp Pulse Resp BP Pulse Ox 37.0 C 106 H 20 114/52 L 96 07/03/16 12:07 07/03/16 12:07 07/03/16 12:07 07/03/16 12:07 07/03/16 12:07 Microbiology 06/30/16 21:00 - Final Sputum, Expectorated Sputum Culture - Final Pseudomonas Aeruginosa Gram Neg Ortiz Nonlactose Ferm. Laboratory Results 07/03/16 04:55 07/03/16 04:55 07/02/16 07/03/16 07/04/16 05:59 05:59 05:59 Intake Total 1575 529 Output Total 500 400 350 Balance 1075 129 -350 PT 15.4 SEC (12.0-15.0) H 07/01/16 04:40 INR 1.22 (0.83-1.16) H 07/01/16 04:40 Laboratory Results 07/03/16 04:55 07/03/16 04:55 07/01/16 04:40 Glucose 127 mg/dL H mg/dL (70 - 100) Calcium 8.5 mg/dL mg/dL (8.5 - 10.4) Total Bilirubin 0.5 mg/dL mg/dL (0.1 - 1.4) AST 60 IU/L H IU/L (14 - 46) ALT 109 IU/L H IU/L (9 - 52) Alkaline Phosphatase 120 IU/L IU/L (38 - 126) Total Protein 6.4 g/dL g/dL (6.3 - 8.2) Albumin 3.0 g/dL L g/dL (3.5 - 5.0) 06/30/16 21:00 - Final Sputum, Expectorated Sputum Culture - Preliminary Gram Neg Ortiz Nonlactose Ferm. 06/30/16 21:00 - Final Sputum, Expectorated Sputum Culture - Final Pseudomonas Aeruginosa Gram Neg Ortiz Nonlactose Ferm. Physical Exam - Physical Exam General Appearance: alert, no apparent distress EENT: PERRL/EOMI, normal ENT inspection, pharynx normal, TMs normal Neck: non-tender, full range of motion, supple, normal inspection Respiratory: crackles (Bibasilar), prolonged expiration, No respiratory distress , No wheezing Cardiac/Chest: normal peripheral pulses, regular rate, rhythm Peripheral Pulses: 2+: carotid (R), carotid (L), femoral (R), femoral (L), dorsalis-pedis (R), dorsalis-pedis (L) Abdomen: normal bowel sounds, non-tender, soft Pelvic Exam: deferred Rectal: deferred Skin: normal color, warm/dry ICD10 Worksheet Patient Problems: Problems Problem Status Onset Bradycardia Acute Chest pain Acute Hyperkalemia Acute Atrial fibrillation Acute Chronic obstructive pulmonary disease with acute exacerbation Acute
--- NOTE | 2016-07-03 12:53 | HOSPPROG ---
Hospitalist Progress Note Assessment/Plan: #Sick sinus syndrome: plan for pacemaker Wednesday. Did not tolerate BB. #Leukocytosis: improving. Treating Pseudomonas in sputum. Cefepime #Acute exacerbation of bronchiectasis: + Pseudomonas. Resistant to LQ. Treat with Cefepime x 7 days #Atrial fib with RVR: still with high HR. Discussed with Dr. Gomez and will Dilt to 90mg QID, Rythmol. #Acute hypoxemic resp failure: BiPap while here. Treating for Pseudomonas Day # #Mild edema: will trial low-dose PO 20mg Lasix and monitor Na closely #Hyperkalemia: resolved. Repeat BMP this afternoon. #Hypovolemic hyponatremia: mild improvement with saline, but now low again and edematous. Trial low-dose Lasix #Sick sinus syndrome: now in a fib with RVR. Rythmol and Dilt today. Patient would like to wait on pace maker #Benign HTN: restart Losartan if BP elevated; normotensive now #Diet: regular #DVT ppx: Lovenox #Disp: warrants ICU admission with a fib RVR, warrants IV dilt, telemetry Subjective: less cough today Objective: Vital Signs Temp Pulse Resp BP Pulse Ox 37.0 C 106 H 20 114/52 L 96 07/03/16 12:07 07/03/16 12:07 07/03/16 12:07 07/03/16 12:07 07/03/16 12:07 Microbiology 06/30/16 21:00 - Final Sputum, Expectorated Sputum Culture - Final Pseudomonas Aeruginosa Gram Neg Ortiz Nonlactose Ferm. Laboratory Results 07/03/16 04:55 07/03/16 04:55 07/02/16 07/03/16 07/04/16 05:59 05:59 05:59 Intake Total 1575 529 Output Total 500 400 350 Balance 1075 129 -350 PT 15.4 SEC (12.0-15.0) H 07/01/16 04:40 INR 1.22 (0.83-1.16) H 07/01/16 04:40 - Physical Exam Constitutional: no apparent distress Eyes: PERRL Ears, Nose, Mouth, Throat: hearing normal Cardiovascular: irregularly irregular, tachycardia, edema (Edema feet, ankles, right hand) Respiratory: rhonchi Genitourinary: no bladder fullness Skin: warm Musculoskeletal: full muscle strength Neurologic: AAOx3 ICD10 Worksheet Patient Problems: Problems Problem Status Onset Bradycardia Acute Chest pain Acute Hyperkalemia Acute Atrial fibrillation Acute Chronic obstructive pulmonary disease with acute exacerbation Acute
[2016-07-03] MEDS ORDERED: DILTIAZEM 30 MG TAB PO SCH (14:00)
[2016-07-03] MEDS: FUROSEMIDE 20 MG TAB PO SCH (15:15)
[2016-07-03] MEDS: DILTIAZEM 60 MG TAB PO SCH (18:07)
[2016-07-03] MEDS: ASPIRIN 81 MG CHEWABLE TAB PO SCH (20:46)
[2016-07-03] MEDS: LATANOPROST 0.005% 2.5 ML OPHT DROPS EACHEYE SCH (20:49)
[2016-07-03] MEDS: HYDROCODONE/HOMATROPINE HYCODAN 5 ML UDL PO PRN (22:07)
[2016-07-04] MEDS: DILTIAZEM 60 MG TAB PO SCH ×5 (00:33→23:41)
[2016-07-04] MEDS: ALTEPLASE 2 MG VIAL IVP PRN (00:33)
[2016-07-04] MEDS: NS 1,000 ML IV SCH ×2 (06:32→17:27)
[2016-07-04 07:58] LABS: HEMATOCRIT 28.8 % (38.0-47.0); HEMOGLOBIN 9.3 g/dL (12.6-16.3); MEAN CELL HEMOGLOBIN 31.1 pg (27.9-34.1); MEAN CELL HEMOGLOBIN CONCENTR. 32.3 g/dL (32.4-36.7); MEAN CELL VOLUME 96.3 fL (81.5-99.8); RED BLOOD CELL COUNT 2.99 10^6/uL (4.18-5.33); RED CELL DISTRIBUTION WIDTH 15.5 % (11.5-15.2)
[2016-07-04] MEDS: ENOXAPARIN 40 MG/0.4 ML SYR SC SCH (08:39)
[2016-07-04] MEDS: SENNOSIDES/DOCUSATE SODIUM TAB PO SCH ×2 (08:39→20:21)
[2016-07-04] MEDS: CHOLECALCIFEROL VIT D3 2,000 UNITS TAB/CAP PO SCH (08:40)
[2016-07-04] MEDS: PROPAFENONE HCL SR 325 MG CAP PO SCH ×2 (08:40→20:20)
[2016-07-04] MEDS: PRESERVISION AREDS2 FORMULA EYE VIT 1 EACH PO SCH (08:40)
[2016-07-04] MEDS: FUROSEMIDE 20 MG TAB PO SCH (08:40)
[2016-07-04] MEDS: MAGNESIUM OXIDE 400 MG TAB PO SCH (08:40)
[2016-07-04] MEDS: CALCIUM CARB W/VIT D 500 MG TAB PO SCH (08:40)
[2016-07-04] MEDS: MULTIVITAMINS 1 EACH TAB PO SCH (08:40)
[2016-07-04] MEDS: FERROUS SULFATE 325 MG TAB PO SCH (08:41)
[2016-07-04] MEDS: PANTOPRAZOLE SODIUM 40 MG TAB PO SCH (08:41)
[2016-07-04 08:45] LABS: ANION GAP 4 mEq/L (8-16); CALCIUM 7.5 mg/dL (8.5-10.4); CARBON DIOXIDE 36 mEq/l (22-31); CHLORIDE 88 mEq/L (97-110); CREATININE 0.4 mg/dL (0.6-1.0); GLOMERULAR FILTRATION RATE > 60; GLUCOSE 88 mg/dL (70-100); POTASSIUM 4.7 mEq/L (3.5-5.2); SODIUM 128 mEq/L (134-144)
[2016-07-04] MEDS: CEFEPIME HCL 2 GM in D5W 100 ML IV SCH ×2 (08:46→20:20)
--- NOTE | 2016-07-04 09:22 | SOAPPROG ---
ST[facility] Progress Note Assessment/Plan: Assessment:1. SSS...tachy/debbi with afib...back in AFIB...recommend permanent pacer to help control future med therapy..pt is deemed not a coumadin candidate..continue rhythmol and cardiazem..recent Lopressor caused severe bradycardia...pt has agree to permanent pacer placement..will plan on wednesday 2. htn..will restart losartan as needed 3. bronchiestasis..chronic atb's followed by dr wills..currently on iv atb's Plan:1. ....permanent pacer on wednesday...no changes from co today 06/30/16 09:33 07/02/16 09:41 07/03/16 10:18 07/04/16 09:20 Subjective: pretty much status quo...afib remains...hr ok on current meds Objective: Vital Signs Temp Pulse Resp BP Pulse Ox 36.5 C 126 H 15 114/68 100 07/04/16 08:00 07/04/16 08:00 07/04/16 08:00 07/04/16 08:00 07/04/16 08:00 Laboratory Results 07/04/16 07:30 07/04/16 07:30 07/03/16 07/04/16 07/05/16 05:59 05:59 05:59 Intake Total 406 562 2568 Output Total 400 2750 Balance 129 -2300 2348 PT 15.4 SEC (12.0-15.0) H 07/01/16 04:40 INR 1.22 (0.83-1.16) H 07/01/16 04:40 Physical Exam - Physical Exam Respiratory: rhonchi Cardiac/Chest: systolic murmur, irregularly irregular, No edema, No gallop ICD10 Worksheet Patient Problems: Problems Problem Status Onset Bradycardia Acute Chest pain Acute Hyperkalemia Acute Atrial fibrillation Acute Chronic obstructive pulmonary disease with acute exacerbation Acute
[2016-07-04] MEDS: FLUTICASONE/SALMETER 250/50MCG DISKUS IH SCH ×2 (11:05→23:25)
--- NOTE | 2016-07-04 11:49 | SOAPPROG ---
SOAP Progress Note Assessment/Plan: Assessment/Plan: * Atrial fibrillation-patient currently with a high rate - * Bradycardia-going for pacemaker perhaps early next week * Bronchiectasis-sputum positive Pseudomonas. -agree with azithromycin and Rocephin at this time. -continue steroids * Respiratory-increased oxygen requirements. Patient states she has difficulty coughing up sputum. -add Mucomyst nebs -add Vest for mucus clearance * Interstitial lung disease with pulmonary fibrosis * Pulmonary hypertension * Respiratory failure-given her extensive lung disease and her use of BiPAP here in the hospital, will attempt to arrange noninvasive ventilation as an outpatient. Subjective: Patient complains of cough with production of thick tenacious secretions. She states her coughing fits will continue for several minutes. Her breathlessness is slightly worsened Objective: Vital Signs Temp Pulse Resp BP Pulse Ox 36.5 C 126 H 15 114/68 98 07/04/16 08:00 07/04/16 08:00 07/04/16 08:00 07/04/16 08:00 07/04/16 11:06 Laboratory Results 07/04/16 07:30 07/04/16 07:30 07/03/16 07/04/16 07/05/16 05:59 05:59 05:59 Intake Total 515 260 9435 Output Total 400 2750 500 Balance 129 -2300 1848 PT 15.4 SEC (12.0-15.0) H 07/01/16 04:40 INR 1.22 (0.83-1.16) H 07/01/16 04:40 Physical Exam - Physical Exam General Appearance: alert, no apparent distress EENT: PERRL/EOMI, normal ENT inspection, pharynx normal, TMs normal Neck: non-tender, full range of motion, supple, normal inspection Respiratory: respiratory distress (Mild), rhonchi (Scattered), prolonged expiration Cardiac/Chest: normal peripheral pulses, regular rate, rhythm, systolic murmur Peripheral Pulses: 2+: carotid (R), carotid (L), femoral (R), femoral (L), dorsalis-pedis (R), dorsalis-pedis (L) Abdomen: normal bowel sounds, non-tender, soft Pelvic Exam: deferred Rectal: deferred Skin: normal color, warm/dry ICD10 Worksheet Patient Problems: Problems Problem Status Onset Bradycardia Acute Chest pain Acute Hyperkalemia Acute Atrial fibrillation Acute Chronic obstructive pulmonary disease with acute exacerbation Acute
[2016-07-04] MEDS: ACETYLCYSTEINE 10% 30 ML VIAL IH SCH ×3 (12:01→23:23)
--- NOTE | 2016-07-04 13:36 | HOSPPROG ---
Hospitalist Progress Note Assessment/Plan: #Sick sinus syndrome: plan for pacemaker Wednesday. Did not tolerate BB. #Leukocytosis: improving. Treating Pseudomonas in sputum. Cefepime #Acute exacerbation of bronchiectasis: + Pseudomonas. Resistant to LQ. Treat with Cefepime x 7 days #Atrial fib with RVR: still with high HR. * continue diltiazem and Rythmol #Acute hypoxemic resp failure: BiPap while here. Treating for Pseudomonas Day # #Mild edema * will continue low-dose Lasix #Hyperkalemia: resolved. Repeat BMP this afternoon. 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 Some shortness of breath intermittently Objective: Vital Signs Temp Pulse Resp BP Pulse Ox 36.6 C 122 H 18 118/64 97 07/04/16 12:00 07/04/16 12:00 07/04/16 12:00 07/04/16 12:00 07/04/16 12:00 Laboratory Results 07/04/16 07:30 07/04/16 07:30 07/03/16 07/04/16 07/05/16 05:59 05:59 05:59 Intake Total 431 674 1996 Output Total 400 2750 1000 Balance 129 -2300 1348 PT 15.4 SEC (12.0-15.0) H 07/01/16 04:40 INR 1.22 (0.83-1.16) H 07/01/16 04:40 tele personally viewed interpreted atrial fibrillation rapid ventricular rate discussed with Cardiology - Physical Exam Constitutional: no apparent distress, appears nourished, not in pain Eyes: anicteric sclera, EOMI Ears, Nose, Mouth, Throat: moist mucous membranes, hearing normal, ears appear normal Cardiovascular: regular rate and rhythym, no murmur, rub, or gallop Respiratory: no respiratory distress, no rales or rhonchi, clear to auscultation Gastrointestinal: normoactive bowel sounds, soft, non-tender abdomen, no palpable masses Skin: warm Neurologic: AAOx3 Psychiatric: interacting appropriately, not anxious, not encephalopathic, thought process linear ICD10 Worksheet Patient Problems: Problems Problem Status Onset Bradycardia Acute Chest pain Acute Hyperkalemia Acute Atrial fibrillation Acute Chronic obstructive pulmonary disease with acute exacerbation Acute
[2016-07-04] MEDS: ALBUTEROL 3 ML DEYVIAL IH PRN ×2 (16:00→23:23)
[2016-07-04] MEDS: ASPIRIN 81 MG CHEWABLE TAB PO SCH (20:21)
[2016-07-04] MEDS: HYDROCODONE/HOMATROPINE HYCODAN 5 ML UDL PO PRN (23:41)
[2016-07-04] MEDS: LATANOPROST 0.005% 2.5 ML OPHT DROPS EACHEYE SCH (23:42)
[2016-07-05] MEDS: DILTIAZEM 60 MG TAB PO SCH ×6 (05:19→23:15)
[2016-07-05] MEDS: ONDANSETRON 4 MG/2 ML VIAL IVP PRN (05:19)
[2016-07-05] MEDS: ALBUTEROL 3 ML DEYVIAL IH PRN ×4 (05:43→21:46)
[2016-07-05] MEDS: ACETYLCYSTEINE 10% 30 ML VIAL IH SCH ×4 (05:43→21:46)
[2016-07-05] MEDS: FLUTICASONE/SALMETER 250/50MCG DISKUS IH SCH ×2 (07:11→21:47)
[2016-07-05] MEDS: PROPAFENONE HCL SR 325 MG CAP PO SCH ×2 (09:56→22:26)
[2016-07-05] MEDS: PRESERVISION AREDS2 FORMULA EYE VIT 1 EACH PO SCH (09:56)
[2016-07-05] MEDS: CALCIUM CARB W/VIT D 500 MG TAB PO SCH (09:56)
[2016-07-05] MEDS: SENNOSIDES/DOCUSATE SODIUM TAB PO SCH ×2 (09:56→22:25)
[2016-07-05] MEDS: FUROSEMIDE 20 MG TAB PO SCH (09:56)
[2016-07-05] MEDS: PANTOPRAZOLE SODIUM 40 MG TAB PO SCH (09:56)
[2016-07-05] MEDS: MULTIVITAMINS 1 EACH TAB PO SCH (09:57)
[2016-07-05] MEDS: MAGNESIUM OXIDE 400 MG TAB PO SCH (09:57)
[2016-07-05] MEDS: CHOLECALCIFEROL VIT D3 2,000 UNITS TAB/CAP PO SCH (09:57)
[2016-07-05] MEDS: CEFEPIME HCL 2 GM in D5W 100 ML IV SCH ×2 (09:57→22:24)
[2016-07-05] MEDS: FERROUS SULFATE 325 MG TAB PO SCH (09:57)
[2016-07-05] MEDS: ENOXAPARIN 40 MG/0.4 ML SYR SC SCH (09:58)
--- NOTE | 2016-07-05 10:19 | SOAPPROG ---
SOAP Progress Note Assessment/Plan: Assessment:1. SSS...tachy/debbi with afib...back in AFIB...recommend permanent pacer to help control future med therapy..pt is deemed not a coumadin candidate..continue rhythmol and cardiazem..recent Lopressor caused severe bradycardia...pt has agree to permanent pacer placement..will plan on wednesday 2. htn..will restart losartan as needed 3. bronchiestasis..chronic atb's followed by dr wills..currently on iv atb's Plan:1. ....permanent pacer on wednesday...no changes from [facility] today 06/30/16 09:33 07/02/16 09:41 07/03/16 10:18 07/04/16 09:20 Subjective: pt seems more tired today..hr 110-120 afib ..will increase diltiazem to 120 tid...bipap i s causing some claustrophobia...pt still agreeing for permanent pacer tomorrow Objective: Vital Signs Temp Pulse Resp BP Pulse Ox 36.7 C 122 H 20 116/59 L 97 07/05/16 07:43 07/05/16 07:43 07/05/16 07:43 07/05/16 07:43 07/05/16 07:43 Laboratory Results 07/04/16 07:30 07/04/16 07:30 07/04/16 07/05/16 07/06/16 05:59 05:59 05:59 Intake Total 450 4550 Output Total 2750 2000 Balance -2300 2550 PT 15.4 SEC (12.0-15.0) H 07/01/16 04:40 INR 1.22 (0.83-1.16) H 07/01/16 04:40 ICD10 Worksheet Patient Problems: Problems Problem Status Onset Bradycardia Acute Chest pain Acute Hyperkalemia Acute Atrial fibrillation Acute Chronic obstructive pulmonary disease with acute exacerbation Acute
--- NOTE | 2016-07-05 10:50 | SOAPPROG ---
SOAP Progress Note Assessment/Plan: Assessment/Plan: * Atrial fibrillation-patient currently with a high rate -per Cardiology * Bradycardia-going for pacemaker perhaps early next week * Bronchiectasis-sputum positive Pseudomonas. -agree with azithromycin and Rocephin at this time. -continue steroids * Respiratory-increased oxygen requirements. Patient states she has difficulty coughing up sputum. She did not tolerate the vest -add Mucomyst nebs -discontinue Vest. We will try EzPAP * Interstitial lung disease with pulmonary fibrosis * Pulmonary hypertension * Respiratory failure-given her extensive lung disease and her use of BiPAP here in the hospital, will attempt to arrange noninvasive ventilation as an outpatient. Subjective: Did not sleep well last night. Increased anxiety. Breathlessness is mostly unchanged. Cough is unchanged and still nonproductive Objective: Vital Signs Temp Pulse Resp BP Pulse Ox 36.7 C 122 H 20 116/59 L 97 07/05/16 07:43 07/05/16 07:43 07/05/16 07:43 07/05/16 07:43 07/05/16 07:43 Laboratory Results 07/04/16 07:30 07/04/16 07:30 07/04/16 07/05/16 07/06/16 05:59 05:59 05:59 Intake Total 450 4550 Output Total 2750 2000 Balance -2300 2550 PT 15.4 SEC (12.0-15.0) H 07/01/16 04:40 INR 1.22 (0.83-1.16) H 07/01/16 04:40 Physical Exam - Physical Exam General Appearance: alert, no apparent distress EENT: PERRL/EOMI, normal ENT inspection Neck: non-tender, full range of motion, supple, normal inspection Respiratory: crackles (Diffuse), prolonged expiration, No respiratory distress, No wheezing Cardiac/Chest: systolic murmur, irregularly irregular Peripheral Pulses: 2+: carotid (R), carotid (L), femoral (R), femoral (L), dorsalis-pedis (R), dorsalis-pedis (L) Abdomen: normal bowel sounds, non-tender, soft Pelvic Exam: deferred Rectal: deferred ICD10 Worksheet Patient Problems: Problems Problem Status Onset Bradycardia Acute Chest pain Acute Hyperkalemia Acute Atrial fibrillation Acute Chronic obstructive pulmonary disease with acute exacerbation Acute
--- NOTE | 2016-07-05 19:47 | HOSPPROG ---
Hospitalist Progress Note Assessment/Plan: #Sick sinus syndrome: plan for pacemaker Wednesday. Did not tolerate BB. #Leukocytosis: improving. Treating Pseudomonas in sputum. Cefepime #Acute exacerbation of bronchiectasis: + Pseudomonas. Resistant to LQ. Treat with Cefepime x 7 days #Atrial fib with RVR: still with high HR. * continue diltiazem and Rythmol #Acute hypoxemic resp failure: BiPap while here. Treating for Pseudomonas Day # #Mild edema * will continue low-dose Lasix #Hyperkalemia: resolved. Repeat BMP this afternoon. 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 intermittent dyspnea Objective: Vital Signs Temp Pulse Resp BP Pulse Ox 36.8 C 120 H 16 127/75 H 96 07/05/16 11:54 07/05/16 17:30 07/05/16 16:45 07/05/16 17:30 07/05/16 16:45 Laboratory Results 07/04/16 07:30 07/04/16 07:30 07/04/16 07/05/16 07/06/16 05:59 05:59 05:59 Intake Total 450 4550 Output Total 2750 2000 750 Balance -2300 2550 -750 PT 15.4 SEC (12.0-15.0) H 07/01/16 04:40 INR 1.22 (0.83-1.16) H 07/01/16 04:40 - Physical Exam Constitutional: no apparent distress, appears nourished, not in pain Eyes: anicteric sclera, EOMI Cardiovascular: irregularly irregular, tachycardia, No edema Respiratory: no respiratory distress, no rales or rhonchi, clear to auscultation Gastrointestinal: normoactive bowel sounds, soft, non-tender abdomen, no palpable masses Neurologic: AAOx3 Psychiatric: interacting appropriately, not anxious, not encephalopathic, thought process linear ICD10 Worksheet Patient Problems: Problems Problem Status Onset Bradycardia Acute Chest pain Acute Hyperkalemia Acute Atrial fibrillation Acute Chronic obstructive pulmonary disease with acute exacerbation Acute
[2016-07-05] MEDS: ASPIRIN 81 MG CHEWABLE TAB PO SCH (22:24)
[2016-07-05] MEDS ORDERED: ATORVASTATIN CALCIUM 10 MG TAB ONE (22:34)
[2016-07-05] MEDS: HYDROCODONE/HOMATROPINE HYCODAN 5 ML UDL PO PRN (23:15)
[2016-07-05] MEDS: LATANOPROST 0.005% 2.5 ML OPHT DROPS EACHEYE SCH (23:16)
[2016-07-06 05:58] LABS: ADD DIFF? YES; ADD MORPH? NO; ADD SCAN? NO; ATYPICAL LYMPHOCYTE FLAG 30 (0-99); FRAGMENT RBC FLAG 0 (0-99); HEMATOCRIT 29.2 % (38.0-47.0); HEMOGLOBIN 9.2 g/dL (12.6-16.3); LEFT SHIFT FLG 60 (0-99); LIPEMIA HEMOLYSIS FLAG 80 (0-99); MEAN CELL HEMOGLOBIN 31.4 pg (27.9-34.1); MEAN CELL HEMOGLOBIN CONCENTR. 31.5 g/dL (32.4-36.7); MEAN CELL VOLUME 99.7 fL (81.5-99.8); MEAN PLATELET VOLUME 8.7 fL (8.7-11.7); PLATELET CLUMPS FLAG 10 (0-99); PLATELET COUNT 146 10^3/uL (150-400); RED BLOOD CELL COUNT 2.93 10^6/uL (4.18-5.33); RED CELL DISTRIBUTION WIDTH 15.4 % (11.5-15.2)
[2016-07-06] MEDS: ALBUTEROL 3 ML DEYVIAL IH PRN ×3 (06:12→22:34)
[2016-07-06] MEDS: ACETYLCYSTEINE 10% 30 ML VIAL IH SCH ×4 (06:15→22:34)
[2016-07-06 06:26] LABS: PLATELET ESTIMATE ADEQUATE (ADEQ)
[2016-07-06 06:27] LABS: HYPOCHROMIA 1+; STOMATOCYTES 1+
[2016-07-06 06:31] LABS: CALCIUM 7.9 mg/dL (8.5-10.4); CHLORIDE 81 mEq/L (97-110); CREATININE 0.4 mg/dL (0.6-1.0); GLOMERULAR FILTRATION RATE > 60; GLUCOSE 98 mg/dL (70-100); POTASSIUM 5.2 mEq/L (3.5-5.2); SODIUM 127 mEq/L (134-144)
[2016-07-06 07:09] LABS: ANION GAP 0 mEq/L (8-16)
[2016-07-06 07:10] LABS: CARBON DIOXIDE 46 mEq/l (22-31)
[2016-07-06] MEDS: CEFEPIME HCL 2 GM in D5W 100 ML IV SCH ×2 (08:39→21:33)
[2016-07-06] MEDS: PANTOPRAZOLE SODIUM 40 MG TAB PO SCH (08:42)
[2016-07-06] MEDS: FUROSEMIDE 20 MG TAB PO SCH (08:42)
[2016-07-06] MEDS: PROPAFENONE HCL SR 325 MG CAP PO SCH ×2 (08:42→21:41)
[2016-07-06] MEDS: DILTIAZEM 60 MG TAB PO SCH ×3 (08:45→21:41)
[2016-07-06] MEDS ORDERED: DIAZEPAM 5 MG TAB PO ONE (09:45)
[2016-07-06] MEDS ORDERED: NS 1,000 ML IV ONE (09:45)
[2016-07-06] MEDS ORDERED: diphenhydrAMINE 25 MG CAP PO ONE (09:45)
[2016-07-06] MEDS ORDERED: BACITRACIN IRRIGATION/NS 50,000 UNITS/1,000 ML BTL IRR ONE (09:45)
[2016-07-06] MEDS ORDERED: ceFAZolin 2 GM/DEXTROSE 100 ML IV ONE (09:45)
--- NOTE | 2016-07-06 09:53 | SOAPPROG ---
SOAP Progress Note Assessment/Plan: Assessment: This is an 80-year-old frail, chronically ill female currently admitted with hypoxic respiratory failure on the basis of bronchiectasis and a superimposed Pseudomonas infection. She appears to be improving with respect to this condition. She has a longstanding history of paroxysmal atrial fibrillation. On her current medical therapy she has manifested clear-cut tachy-debbi syndrome with heart rates well into the high 100s and down into the 30s. At this point she meets criteria for placement of a permanent pacemaker to facilitate control of her atrial fibrillation. Previously, she has been deemed not to be a candidate for systemic anticoagulation likely in light of her frail stature and bronchiectasis. I spoke to her about the plans for permanent pacing. We will plan for placement of a single-chamber pacemaker via left axillary/subclavian approach. After this, we will be in a much better position to adjust her medication to facilitate rate control. The risks, benefits and alternatives were discussed with her, her and her son present. Both verbal and written informed consent were obtained. 07/06/16 09:51 Subjective: The patient was seen and examined. Her chart was reviewed. I spoke with the hospitalist service as well as Dr. Gomez who took care of her over the weekend. Currently, she states that she is weak. She is not experiencing any dizziness or lightheadedness. She has chronic dyspnea related to her bronchiectasis. She was admitted with hypoxic respiratory failure due to bronchiectasis superimposed with a Pseudomonas infection. She has been on antibiotics now with a declining white blood cell count and clearing sputum production. During this hospitalization, she has manifested atrial fibrillation with evidence of tachy-debbi syndrome and heart rates down into the 30s. Objective: Vital Signs Temp Pulse Resp BP Pulse Ox 36.9 C 120 H 20 139/73 H 98 07/06/16 07:48 07/06/16 08:45 07/06/16 07:48 07/06/16 08:45 07/06/16 07:48 Laboratory Results 07/06/16 05:46 07/06/16 05:46 07/05/16 07/06/16 07/07/16 05:59 05:59 05:59 Intake Total 4550 400 110 Output Total 2000 1350 500 Balance 2550 -950 -390 PT 15.4 SEC (12.0-15.0) H 07/01/16 04:40 INR 1.22 (0.83-1.16) H 07/01/16 04:40 Physical Exam - Physical Exam General Appearance: other (Chronically ill) EENT: PERRL/EOMI Neck: non-tender Respiratory: chest non-tender, rhonchi (Diffuse), No respiratory distress, No accessory muscle use, No crackles, No rales Cardiac/Chest: tachycardia, irregularly irregular, No edema, No gallop, No JVD Peripheral Pulses: 2+: carotid (R), carotid (L) ICD10 Worksheet Patient Problems: Problems Problem Status Onset Bradycardia Acute Chest pain Acute Hyperkalemia Acute Atrial fibrillation Acute Chronic obstructive pulmonary disease with acute exacerbation Acute
[2016-07-06 10:38] LABS: INR 1.07 (0.83-1.16); PROTIME(PATIENT) 13.8 SEC (12.0-15.0)
[2016-07-06] MEDS ORDERED: IOPAMIDOL (ISOVUE-300) 100 ML BTL IV ONE (10:53)
[2016-07-06] MEDS ORDERED: LIDO/EPI 1% **for epidural** 30 ML SDV ONE (10:54)
[2016-07-06] MEDS ORDERED: BUPIVACAINE 0.5% 30 ML SDV ONE (10:54)
[2016-07-06] MEDS ORDERED: LIDOCAINE 1% 30 ML SDV ONE (10:54)
[2016-07-06] MEDS ORDERED: DEXMEDETOMIDINE HCL 200 MCG/2 ML VIAL IV ONE (11:07)
[2016-07-06] MEDS ORDERED: MIDAZOLAM 2 MG/2 ML VIAL ONE (11:09)
[2016-07-06] MEDS: FLUTICASONE/SALMETER 250/50MCG DISKUS IH SCH ×2 (11:16→22:35)
[2016-07-06] MEDS ORDERED: PROPOFOL 200 MG/20 ML VIAL ONE (11:21)
[2016-07-06] MEDS ORDERED: PHENYLEPHRINE HCL 100 MCG/ML SYR ONE ×2 (11:24→12:02)
--- NOTE | 2016-07-06 12:46 | CPIP ---
[f rep st] INVASIVE CARDIAC PROCEDURE DATE OF PROCEDURE: 07/06/2016 INDICATIONS FOR PROCEDURE: The patient is 80 years old. She has a history of paroxysmal atrial fib rillation with sick sinus syndrome and clear-cut tachy-debbi syndrome. She is referred for pacemake r implantation with those indications. PROCEDURE: Implantation of a single-chamber pacemaker. TECHNIQUE: Following informed consent, the patient was brought to the cardiac catheterization labor atory fasting. Immediately prior to the procedure, prophylactic antibiotics were administered. Lef t chest was prepped and draped in the usual sterile fashion. A venogram was performed, which identi fied a widely patent axillary subclavian system. There was significant tortuosity at the brachiocep halic junction with the superior vena cava. 2% lidocaine was infiltrated into the skin immediately below the left clavicle. Using a #10 blade, a 3 cm incision was made. Using blunt and sharp dissec tion, the pacemaker pocket was fashioned. All bleeders were cauterized. Using the modified [place] er technique, access was gained to the axillary vein at the level of the 1st rib. We initially plac ed a short 6-[place] sheath in the axillary vein. Multiple attempts were made to pass the right vent ricular lead without success. We had difficulty at the tortuosity of her superior vena cava brachio cephalic junction. As result, this sheath was changed out to a long 7-[place] sheath. This allowed us to easily place the lead in the right ventricular apex. Lead was then screwed into place. Lead was tested with adequate capture and sensing, and the sheath torn away. The lead was then secured t o the pacemaker pocket floor using 0 Ethibond. At this point, the pocket was inspected. All bleede rs were cauterized. The pocket was irrigated with antibiotic-containing solution, and the device wa s brought to the field. The device was affixed to the header according to credit representative guidelines. The device in the redundant portion of the right ventricular lead was then placed in the pocket. T he device was then retested through the device remotely with excellent capture and sensing. The poc ket was then closed in 2 layers, initially using 2 layers of interrupted suture with 2-0 Vicryl and finally 3-0 Stratafix for the skin. Steri-Strips and a dry dressing were applied. COMPLICATIONS: None. DEVICE INFORMATION: The pacemaker is a [employer] Assurity MRI device, reference number PM127 2, serial number [id number]. The right ventricular lead is a [employer] 52 cm lead, s erial number [id number]. Sensed R-waves were 8.3 mV with a lead impedance of 685 ohms and capture of 0.8 V at 0.5 millisecond s. There was no diaphragmatic stimulation. DISPOSITION: The patient will be returned to her floor on telemetry. /[id number]/MODL
--- NOTE | 2016-07-06 12:53 | CPEKG ---
Heart Rate: 130 RR Interval: 462 QRSD Interval: 102 QT Interval: 324 QTC Interval: 477 QRS [place]: 41 T Wave [place]: 75 EKG Severity - ABNORMAL ECG - EKG Impression: ATRIAL FIBRILLATION EKG Impression: PROBABLE LEFT VENTRICULAR HYPERTROPHY EKG Impression: ANTEROSEPTAL INFARCT, AGE INDETERMINATE Electronically Signed By: Evan Red 06-Jul-2016 18:18:15
--- NOTE | 2016-07-06 14:05 | SOAPPROG ---
SOAP Progress Note Assessment/Plan: Assessment/Plan: * Atrial fibrillation-patient currently with a high rate -per Cardiology * Bradycardia-S/P pacer * Bronchiectasis-sputum positive Pseudomonas. -agree with azithromycin and Rocephin at this time. -continue steroids * Respiratory-increased oxygen requirements. Patient states she has difficulty coughing up sputum. She did not tolerate the vest -add Mucomyst nebs -discontinue Vest. We will try EzPAP * Interstitial lung disease with pulmonary fibrosis * Pulmonary hypertension * Respiratory failure-given her extensive lung disease and her use of BiPAP here in the hospital, will attempt to arrange noninvasive ventilation as an outpatient. Overall a little better Subjective: Comfortable post pacer. Dyspnea unchanged Objective: Vital Signs Temp Pulse Resp BP Pulse Ox 36.9 C 84 18 139/73 H 97 07/06/16 07:48 07/06/16 10:04 07/06/16 10:04 07/06/16 08:45 07/06/16 10:04 Laboratory Results 07/06/16 05:46 07/06/16 05:46 07/05/16 07/06/16 07/07/16 05:59 05:59 05:59 Intake Total 4550 400 110 Output Total 2000 1350 825 Balance 2550 -950 -715 PT 13.8 SEC (12.0-15.0) 07/06/16 10:10 INR 1.07 (0.83-1.16) 07/06/16 10:10 Physical Exam - Physical Exam General Appearance: alert, no apparent distress EENT: PERRL/EOMI, normal ENT inspection Neck: non-tender, full range of motion, supple, normal inspection Respiratory: rhonchi, No respiratory distress, No stridor, No wheezing Cardiac/Chest: normal peripheral pulses, regular rate, rhythm Peripheral Pulses: 2+: carotid (R), carotid (L), femoral (R), femoral (L), dorsalis-pedis (R), dorsalis-pedis (L) Abdomen: normal bowel sounds, non-tender, soft Pelvic Exam: deferred Rectal: deferred Skin: normal color, warm/dry ICD10 Worksheet Patient Problems: Problems Problem Status Onset Bradycardia Acute Chest pain Acute Hyperkalemia Acute Atrial fibrillation Acute Chronic obstructive pulmonary disease with acute exacerbation Acute
[2016-07-06] MEDS: CALCIUM CARB W/VIT D 500 MG TAB PO SCH (15:05)
[2016-07-06] MEDS: FERROUS SULFATE 325 MG TAB PO SCH (15:05)
[2016-07-06] MEDS: PRESERVISION AREDS2 FORMULA EYE VIT 1 EACH PO SCH (15:05)
[2016-07-06] MEDS: SENNOSIDES/DOCUSATE SODIUM TAB PO SCH ×2 (15:05→21:41)
[2016-07-06] MEDS: MAGNESIUM OXIDE 400 MG TAB PO SCH (15:06)
[2016-07-06] MEDS: CHOLECALCIFEROL VIT D3 2,000 UNITS TAB/CAP PO SCH (15:06)
[2016-07-06] MEDS: MULTIVITAMINS 1 EACH TAB PO SCH (15:07)
--- NOTE | 2016-07-06 16:42 | CPEKG ---
Heart Rate: 117 RR Interval: 513 QRSD Interval: 96 QT Interval: 320 QTC Interval: 447 QRS [place]: 87 T Wave [place]: 79 EKG Severity - ABNORMAL ECG - EKG Impression: ATRIAL FIBRILLATION, V-RATE 76-161 EKG Impression: ANTERIOR INFARCT, AGE INDETERMINATE Electronically Signed By: Evan Red 06-Jul-2016 18:17:20
[2016-07-06] MEDS: ENOXAPARIN 40 MG/0.4 ML SYR SC SCH (18:21)
[2016-07-06] MEDS: LATANOPROST 0.005% 2.5 ML OPHT DROPS EACHEYE SCH (21:39)
[2016-07-06] MEDS: ASPIRIN 81 MG CHEWABLE TAB PO SCH (21:44)
[2016-07-06] MEDS: METOPROLOL TARTRATE 25 MG TAB PO SCH (21:44)
--- NOTE | 2016-07-06 22:21 | HOSPPROG ---
Hospitalist Progress Note Assessment/Plan: #Sick sinus syndrome: s/p pacemaker. Did not tolerate BB. #Leukocytosis: improving. Treating Pseudomonas in sputum. Cefepime #increased co2 * hold lasix * start diamox #Acute exacerbation of bronchiectasis: + Pseudomonas. Resistant to LQ. Treat with Cefepime x 7 days #Atrial fib with RVR: still with high HR. * continue diltiazem and Rythmol #Acute hypoxemic resp failure: BiPap while here. Treating for Pseudomonas Day # #Mild edema * will continue low-dose Lasix #Hyperkalemia: resolved. Repeat BMP this afternoon. 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 resting now Objective: Vital Signs Temp Pulse Resp BP Pulse Ox 37.0 C 150 H 18 124/89 H 92 07/06/16 19:33 07/06/16 21:41 07/06/16 19:33 07/06/16 21:41 07/06/16 19:33 Laboratory Results 07/06/16 05:46 07/06/16 05:46 07/05/16 07/06/16 07/07/16 05:59 05:59 05:59 Intake Total 4550 400 555 Output Total 1999 1350 2125 Balance 2550 -950 -1570 PT 13.8 SEC (12.0-15.0) 07/06/16 10:10 INR 1.07 (0.83-1.16) 07/06/16 10:10 - Physical Exam Constitutional: no apparent distress, appears nourished, not in pain Eyes: anicteric sclera, EOMI Ears, Nose, Mouth, Throat: moist mucous membranes, hearing normal, ears appear normal Cardiovascular: irregularly irregular Respiratory: no respiratory distress, no rales or rhonchi, clear to auscultation Skin: warm Musculoskeletal: other (lue edema) ICD10 Worksheet Patient Problems: Problems Problem Status Onset Bradycardia Acute Chest pain Acute Hyperkalemia Acute Atrial fibrillation Acute Chronic obstructive pulmonary disease with acute exacerbation Acute
[2016-07-07] MEDS: HYDROCODONE/HOMATROPINE HYCODAN 5 ML UDL PO PRN (00:30)
[2016-07-07] MEDS: ACETYLCYSTEINE 10% 30 ML VIAL IH SCH ×4 (05:38→17:05)
[2016-07-07] MEDS: ALBUTEROL 3 ML DEYVIAL IH PRN ×4 (05:38→23:02)
[2016-07-07 05:50] LABS: ADD DIFF? YES; ADD MORPH? NO; ADD SCAN? NO; ATYPICAL LYMPHOCYTE FLAG 0 (0-99); FRAGMENT RBC FLAG 0 (0-99); HEMATOCRIT 31.8 % (38.0-47.0); LEFT SHIFT FLG 50 (0-99); LIPEMIA HEMOLYSIS FLAG 80 (0-99); MEAN CELL HEMOGLOBIN 31.8 pg (27.9-34.1); MEAN CELL HEMOGLOBIN CONCENTR. 31.4 g/dL (32.4-36.7); MEAN CELL VOLUME 101.3 fL (81.5-99.8); MEAN PLATELET VOLUME 8.8 fL (8.7-11.7); PLATELET CLUMPS FLAG 0 (0-99); PLATELET COUNT 161 10^3/uL (150-400); RED BLOOD CELL COUNT 3.14 10^6/uL (4.18-5.33); RED CELL DISTRIBUTION WIDTH 15.2 % (11.5-15.2)
[2016-07-07 06:06] LABS: CALCIUM 8.7 mg/dL (8.5-10.4); CHLORIDE 78 mEq/L (97-110); CREATININE 0.4 mg/dL (0.6-1.0); GLOMERULAR FILTRATION RATE > 60; GLUCOSE 111 mg/dL (70-100); SODIUM 126 mEq/L (134-144)
[2016-07-07 06:22] LABS: ANION GAP 3 mEq/L (8-16)
[2016-07-07 06:23] LABS: CARBON DIOXIDE 45 mEq/l (22-31)
[2016-07-07 06:28] LABS: TOXIC GRANULATION PRESENT; TOXIC VACUOLIZATION PRESENT
[2016-07-07 06:29] LABS: HYPOCHROMIA 1+; MACROCYTES 1+; PLATELET ESTIMATE ADEQUATE (ADEQ)
[2016-07-07] MEDS ORDERED: acetaZOLAMIDE 250 MG TAB PO SCH (09:00)
--- NOTE | 2016-07-07 09:19 | CPEKG ---
Heart Rate: 148 RR Interval: 405 QRSD Interval: 94 QT Interval: 292 QTC Interval: 459 QRS [place]: 102 T Wave [place]: 75 EKG Severity - ABNORMAL ECG - EKG Impression: ATRIAL FIBRILLATION EKG Impression: ANTERIOR INFARCT, AGE INDETERMINATE EKG Impression: RIGHT AXIS DEVIATION Electronically Signed By: Evan Red 08-Jul-2016 08:34:25
[2016-07-07] MEDS ORDERED: METOPROLOL TARTRATE 5 MG/5 ML INJ IVP SCH (09:30)
[2016-07-07] MEDS: METOPROLOL TARTRATE 5 MG/5 ML INJ IVP SCH ×3 (09:33→09:49)
[2016-07-07] MEDS: CEFEPIME HCL 2 GM in D5W 100 ML IV SCH ×2 (09:53→21:30)
[2016-07-07] MEDS: CALCIUM CARB W/VIT D 500 MG TAB PO SCH (09:55)
[2016-07-07] MEDS: PRESERVISION AREDS2 FORMULA EYE VIT 1 EACH PO SCH (09:55)
[2016-07-07] MEDS: METOPROLOL TARTRATE 25 MG TAB PO SCH ×2 (09:56→21:27)
[2016-07-07] MEDS: MAGNESIUM OXIDE 400 MG TAB PO SCH (09:56)
[2016-07-07] MEDS: PROPAFENONE HCL SR 325 MG CAP PO SCH ×2 (09:56→21:27)
[2016-07-07] MEDS: SENNOSIDES/DOCUSATE SODIUM TAB PO SCH ×2 (09:56→21:27)
[2016-07-07] MEDS: DILTIAZEM 60 MG TAB PO SCH (10:00)
[2016-07-07] MEDS: MULTIVITAMINS 1 EACH TAB PO SCH (10:00)
[2016-07-07] MEDS: FERROUS SULFATE 325 MG TAB PO SCH (10:01)
[2016-07-07] MEDS: CHOLECALCIFEROL VIT D3 2,000 UNITS TAB/CAP PO SCH (10:01)
[2016-07-07] MEDS: PANTOPRAZOLE SODIUM 40 MG TAB PO SCH (10:01)
[2016-07-07] MEDS: ENOXAPARIN 40 MG/0.4 ML SYR SC SCH (10:02)
[2016-07-07] MEDS: POLYETHYLENE GLYCOL 3350 17 GM PKT PO PRN (10:02)
[2016-07-07] MEDS: FLUTICASONE/SALMETER 250/50MCG DISKUS IH SCH ×2 (10:25→23:05)
[2016-07-07] MEDS ORDERED: DILTIAZEM 25 MG/5 ML VIAL IVP ONE (12:00)
[2016-07-07] MEDS ORDERED: IPRATROPIUM/ALBUTEROL 3 ML DEYVIAL ONE (12:01)
[2016-07-07 12:10] LABS: BASE EXCESS 13.4 mEq/L (-2.5-2.5); BICARBONATE 42 mEq/L (22-26); MEASURED OXYGEN SATURATION 97 % (92-95); PO2 94 mmHg (65-75)
[2016-07-07 12:12] LABS: PCO2 87 mmHg (34-38)
[2016-07-07 12:13] LABS: TCO2 45 mEq/L (23-27)
[2016-07-07] MEDS ORDERED: FUROSEMIDE 20 MG/2 ML VIAL IVP ONE (12:37)
[2016-07-07] MEDS: ALTEPLASE 2 MG VIAL IVP PRN (13:06)
--- NOTE | 2016-07-07 13:58 | SOAPPROG ---
SOAP Progress Note Assessment/Plan: Assessment: 1. Paroxysmal atrial fibrillation. 2. Sick sinus syndrome with episodes of significant bradycardia. 3. Chest discomfort associated with RVR. 4. Bronchiectasis. 5. Hypoxic respiratory failure likely related to bronchiectasis and now volume overload. 6. Heart failure with a preserved ejection fraction. Likely on the basis of atrial fibrillation with a rapid ventricular response. 7. Pocket hematoma. Plan: 1. Her heart rate has improved with IV diltiazem. Therefore, I have started her on 240 mg of extended release diltiazem twice daily. She will continue taking metoprolol 12-,1/2 mg twice daily. 2. Because of her pocket hematoma, I have discontinued her Lovenox. 3. She has been given intravenous Lasix. She is on Diamox which was started apparently yesterday. 4. She will be monitored carefully. 07/07/16 13:55 Subjective: Earlier this morning, the patient was complaining of left-sided chest pressure. She was in rapid atrial fibrillation at that time. An echocardiogram was performed that did not demonstrate any pericardial effusion that would suggest lead perforation. Her chest x-ray did not suggest pneumothorax however did indicate evidence of volume overload. She was treated with intravenous metoprolol and diltiazem. With this, her heart rate has improved now down into the 90s and low 100s. With this, she states that this sensation of chest pressure has completely resolved. Objective: Vital Signs Temp Pulse Resp BP Pulse Ox 37.1 C 109 H 22 H 137/68 H 93 07/07/16 11:59 07/07/16 12:00 07/07/16 12:00 07/07/16 11:59 07/07/16 12:00 Laboratory Results 07/07/16 05:30 07/07/16 05:30 07/06/16 07/07/16 07/08/16 05:59 05:59 05:59 Intake Total 400 1165 582 Output Total 1350 5955 475 Balance -950 -2060 107 PT 13.8 SEC (12.0-15.0) 07/06/16 10:10 INR 1.07 (0.83-1.16) 07/06/16 10:10 Physical Exam - Physical Exam General Appearance: thin, other (Chronically ill) Neck: non-tender, full range of motion Respiratory: decreased breath sounds (At both bases), rhonchi, No respiratory distress, No accessory muscle use Cardiac/Chest: irregularly irregular, No edema, No gallop, No JVD Peripheral Pulses: 2+: carotid (R), carotid (L) ICD10 Worksheet Patient Problems: Problems Problem Status Onset Atrial fibrillation Acute Chronic obstructive pulmonary disease with acute exacerbation Acute Bradycardia Acute Hyperkalemia Acute Chest pain Acute
--- NOTE | 2016-07-07 14:56 | ECHO ---
[id number] + + [address] : : [place] [address] : : [phone] + + Adult Echocardiographic Report + + :Name: MAHAMED ART PStudy Date: 07/07/2016 09:45 AM BP: 127/91 mmHg: : Hospital Admission Number: [id number] : :: 1935 Gender: Female : :Age: 80 yrs Race: WH : :Reason For Study: chest pain : :History: S/P PPM : + + MMode/2D Measurements \T\ Calculations IVSd: 1.3 cm LVIDd: 4.2 cm FS: 37.2 % LVPWd: 0.98 cm LVIDs: 2.6 cm EDV(Teich): 77.8 ml ESV(Teich): 25.2 ml EF(Teich): 67.6 % Normal Measurement Values: + + :LVIDd (3.5-5.7cm) IVSd (0.6-1.1cm) LVPWd (0.6-1.1cm) Aortic Root (2.0-3.7cm)Left Atrium (1.5-4.0cm): :LV Vol(d) (76-115ml) LV Vol(s) (29-48ml) Ejec Fraction (50-65%)PV Cong (0.6- 1.2m/s) TV Cong (0.4-1.0m/s) : :MV E Cong (0.8-1.0m/s)MV A Cong (0.3-1.0m/s)LVOT Cong (0.7-1.2m/s) Asc Ao Cong ( 0.9-1.8m/s) : + + Doppler Measurements \T\ Calculations TR max cong: 318.0 cm/sec TR max P.8 mmHg RAP systole: 15.0 mmHg RVSP(TR): 55.8 mmHg Left Ventricle The left ventricle is normal in size and function. There is mild to moderate concentric left ventricular hypertrophy. Ejection Fraction = 65-70%. No regional wall motion abnormalities noted. Right Ventricle The right ventricle is normal in size and function. There is a pacemaker lead in the right ventricle. Atria Bi-atrial enlargement. A dilated inferior vena cava suggests increased right atrial pressure. The lack of respiratory variation in the inferior vena cava diameter is noted. Tricuspid Valve The tricuspid valve leaflets are thin and pliable. There is moderate tricuspid regurgitation. Right ventricular systolic pressure is 56mmHg. There is Doppler evidence for moderate pulmonary hypertension. Pericardium/Pleural trivial pericardial effusion. There is a fat pad seen. There is a large pleural effusion. Conclusion Limited echocardiogram to check LVFX and pericardial effusion. Patient's rhythm is rapid atrial fibrillation. The rhythm is atrial fibrillaton with RVR. The left ventricle is normal in size and function. There is mild to moderate concentric left ventricular hypertrophy. Ejection Fraction = 65-70%. Bi-atrial enlargement. There is moderate tricuspid regurgitation. Right ventricular systolic pressure is 56mmHg. There is Doppler evidence for moderate pulmonary hypertension. Trivial pericardial effusion. There is a large pleural effusion. Dilated IVC suggestive of volume overload. Final Reading Physician: Pranav Hemphill signed on 07/07/2016 02:56 PM Ordering Physician: Rei Deng Performed By: Laurie Parks
--- NOTE | 2016-07-07 15:45 | HOSPPROG ---
Hospitalist Progress Note Assessment/Plan: #Sick sinus syndrome: s/p pacemaker. Did not tolerate BB. * acute on chronic respiratory failure * today's episode is probably related to the increased rate this morning * she does have worsening hypercarbia although pH is remains same * there may be element of fluid overload and thus the dose of Lasix has been given * acute on chronic respiratory acidosis * discussed with pulmonology * will hold off on further Diamox * I believe her worsening alkalosis is probably in part related to diuresis over the last several days #Acute exacerbation of bronchiectasis: + Pseudomonas. Resistant to LQ. Treat with Cefepime x 7 days #Atrial fib with RVR: still with high HR. 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 with improvement of heart rate she is feeling better Objective: Vital Signs Temp Pulse Resp BP Pulse Ox 36.8 C 106 H 20 133/89 H 97 07/07/16 15:27 07/07/16 15:27 07/07/16 15:27 07/07/16 15:27 07/07/16 15:27 Laboratory Results 07/07/16 05:30 07/07/16 05:30 07/06/16 07/07/16 07/08/16 05:59 05:59 05:59 Intake Total 400 1165 582 Output Total 1350 3225 1095 Balance -950 -2060 -513 PT 13.8 SEC (12.0-15.0) 07/06/16 10:10 INR 1.07 (0.83-1.16) 07/06/16 10:10 discussed with pulmonology and Cardiology chest x-ray personally viewed interpreted possibly worsening right lower infiltrate tele personally viewed interpreted atrial fibrillation tachycardia - Physical Exam Constitutional: no apparent distress, appears nourished, not in pain Eyes: anicteric sclera, EOMI Ears, Nose, Mouth, Throat: moist mucous membranes, hearing normal Cardiovascular: irregularly irregular, edema ( 1+) Respiratory: no respiratory distress, rhonchi ( bilaterally with some wheezing) Gastrointestinal: normoactive bowel sounds, soft, non-tender abdomen, no palpable masses Neurologic: AAOx3 Psychiatric: interacting appropriately, not anxious, not encephalopathic, thought process linear ICD10 Worksheet Patient Problems: Problems Problem Status Onset Bradycardia Acute Chest pain Acute Hyperkalemia Acute Atrial fibrillation Acute Chronic obstructive pulmonary disease with acute exacerbation Acute
--- NOTE | 2016-07-07 17:05 | PDINTPN ---
Remedial Project Manager Progress Note Assessment/Plan: Assessment/plan: 80 F with multiple admissions related to bronchiectasis exacerbations, and afib with RVR. She was rate controlled but developed hypotension and bradycardia, requiring a pacemaker 07/06. She has a known history of IPF as well as PH (but normal RV size and function), and was adnitted with a respiratory acidosis. She was getting lasix but this was held after her serum HCO3 started to rise. * Acute on chronic respiratory failure with hypercapnea- likely a combination of IPF, bronchiectasis, and added CHF in a patient with little respiratory reserve. Her pH remains low (7.31), I suspect as her serum Hco3 has been rising in accordance with her rising CO2; which is likely rising as her space increases in the setting of worsening CHF (as evidenced by today's ABG, CXR and BNP of >3000). I am worried that giving her diamox will lower he needed buffer and lead to worsening respiratory acidosis. She was again treated with lasix today, but her drop in HR from 140-150 earlier today will likely help significantly. * Bronchiectasis with sputum cx growing Pseudomonas. Her WBC has been decreasing and she remains on Cefepime, which should be adequate. I dont think infection is causing her current decline in respiratory status. Agree with mucomyst, Advair, nebs, and flutter valve. She apparently did not tolerate a vest earlier this hospital stay. I don't see steroids on her MAR at the moment, but am not sure she needs this now. If she fails to improve, I would reconsider. * DNR- I had a detailed discussion with her and her today at bedside. She has reconsidered her status and wants to be a full DNR, recognizing that the change would not likely result in any change in her current management. I agree with the DNR. * PH- the cause is multifactorial but not contributing to her current situation. She is not a candidate for PAH-specific therapy. Objective: Vital Signs Temp Pulse Resp BP Pulse Ox 36.8 C 106 H 20 133/89 H 97 07/07/16 15:27 07/07/16 15:27 07/07/16 15:27 07/07/16 15:27 07/07/16 15:27 Laboratory Results 07/07/16 05:30 07/07/16 05:30 07/06/16 07/07/16 07/08/16 05:59 05:59 05:59 Intake Total 400 1165 582 Output Total 1316 3225 1095 [facility] -950 -2060 -513 PT 13.8 SEC (12.0-15.0) 07/06/16 10:10 INR 1.07 (0.83-1.16) 07/06/16 10:10 Physical Exam - Physical Exam General Appearance: alert, mild distress EENT: PERRL/EOMI Neck: full range of motion, supple Respiratory: decreased breath sounds, crackles Cardiac/Chest: edema, irregularly irregular Abdomen: non-tender, soft, No distended Skin: normal color, warm/dry Extremities: normal range of motion Neuro/Psych: alert, normal mood/affect, oriented x 3 ICD10 Worksheet Patient Problems: Problems Problem Status Onset Bradycardia Acute Chest pain Acute Hyperkalemia Acute Atrial fibrillation Acute Chronic obstructive pulmonary disease with acute exacerbation Acute
[2016-07-07] MEDS ORDERED: VERAPAMIL ER 240 MG TAB PO SCH (21:00)
[2016-07-07] MEDS ORDERED: DILTIAZEM CD 180 MG CAP PO SCH (21:00)
[2016-07-07] MEDS: ASPIRIN 81 MG CHEWABLE TAB PO SCH (21:27)
[2016-07-07] MEDS: LATANOPROST 0.005% 2.5 ML OPHT DROPS EACHEYE SCH (22:15)
[2016-07-08] MEDS: ALBUTEROL 3 ML DEYVIAL IH PRN ×2 (05:31→10:16)
[2016-07-08] MEDS: ACETYLCYSTEINE 10% 30 ML VIAL IH SCH ×3 (05:33→16:07)
[2016-07-08 06:08] LABS: ADD DIFF? YES; ADD MORPH? NO; ADD SCAN? NO; ATYPICAL LYMPHOCYTE FLAG 0 (0-99); FRAGMENT RBC FLAG 0 (0-99); HEMATOCRIT 30.1 % (38.0-47.0); HEMOGLOBIN 9.6 g/dL (12.6-16.3); LEFT SHIFT FLG 30 (0-99); LIPEMIA HEMOLYSIS FLAG 80 (0-99); MEAN CELL HEMOGLOBIN 31.5 pg (27.9-34.1); MEAN CELL HEMOGLOBIN CONCENTR. 31.9 g/dL (32.4-36.7); MEAN CELL VOLUME 98.7 fL (81.5-99.8); MEAN PLATELET VOLUME 8.7 fL (8.7-11.7); PLATELET CLUMPS FLAG 0 (0-99); PLATELET COUNT 175 10^3/uL (150-400); RED BLOOD CELL COUNT 3.05 10^6/uL (4.18-5.33); RED CELL DISTRIBUTION WIDTH 14.8 % (11.5-15.2)
[2016-07-08 06:28] LABS: CALCIUM 9.2 mg/dL (8.5-10.4); CHLORIDE 78 mEq/L (97-110); CREATININE 0.6 mg/dL (0.6-1.0); GLOMERULAR FILTRATION RATE > 60; GLUCOSE 107 mg/dL (70-100); POTASSIUM 4.7 mEq/L (3.5-5.2); SODIUM 126 mEq/L (134-144)
[2016-07-08 07:03] LABS: HYPOCHROMIA 1+; PLATELET ESTIMATE ADEQUATE (ADEQ); POLYCHROMASIA 1+; STOMATOCYTES 1+
[2016-07-08 07:04] LABS: TOXIC GRANULATION PRESENT
[2016-07-08 07:30] LABS: ANION GAP 5 mEq/L (8-16)
[2016-07-08 07:33] LABS: CARBON DIOXIDE 43 mEq/l (22-31)
[2016-07-08] MEDS ORDERED: DILTIAZEM 25 MG/5 ML VIAL IVP ONE (09:00)
[2016-07-08] MEDS ORDERED: DILTIAZEM 25 MG/5 ML VIAL IVP SCH (09:00)
--- NOTE | 2016-07-08 09:13 | PDCARPN ---
Cardiology Progress Note Assessment/Plan: Assessment: 1. Paroxysmal atrial fibrillation. 2. Sick sinus syndrome with episodes of significant bradycardia. 3. Chest discomfort associated with RVR. 4. Bronchiectasis. 5. Hypoxic respiratory failure likely related to bronchiectasis and now volume overload. 6. Heart failure with a preserved ejection fraction. Likely on the basis of atrial fibrillation with a rapid ventricular response. 7. Pocket hematoma. We continued to have problems with rate control. She was just started on long- acting calcium channel blockers last night. It would likely be another several days before these fully take effect. Plan: 1. We will continue with 240 mg of diltiazem twice daily. 2. I have increased her metoprolol up to 25 mg twice daily. 3. I have given her a single dose of IV diltiazem 10 mg today. 4. I think that she should receive additional diuretics although I will defer to her primary care team. 5. I recommended that she get out of bed to a chair and use incentive spirometry. 6. We will follow along. 07/08/16 09:14 Subjective: Apparently, she had a difficult evening. She states that she woke up in the middle night thinking that she had . Today she has a little bit more significant coughing yesterday. She does not complain of significant dyspnea or orthopnea. She is not experiencing any chest discomfort or palpitations although her heart rate continues to be problematic. Her evaluation yesterday including chest x-ray, echo and device interrogations did not indicate any problems with device implantation. Objective: Vital Signs (8 Hrs) Temp Pulse Resp BP Pulse Ox 07/08/16 08:00 37.1 C 131 H 22 H 148/78 H 96 07/08/16 07:23 108 H 07/08/16 05:33 108 H 24 H 94 Intake/Output (24 Hrs) 07/07/16 07/08/16 07/09/16 05:59 05:59 05:59 Intake Total 1165 932 100 Output Total 3225 1095 Balance -2059 100 Intake: Oral (ml) 800 710 IV Intake (ml) 55 122 IV Infused (ml) 310 100 100 Cefepime HCl 2 gm In D5w 310 100 100 100 ml @ 200 mls/hr IV Q12HRS [facility] Rx#:[id number] Output: Urine (ml) 3225 1095 Incontinence 900 Toilet 2325 1095 Other: Weight 60.4 kg Intake Quantity Yes Sufficient Output Comment Incontinence 60.4 kilos Number of Voids Incontinence 2 2 Toilet 1 1 Result Diagrams: 07/08/16 06:00 07/08/16 06:00 - Physical Exam Constitutional: other (Chronically ill) Cardiovascular: irregularly irregular, other (Pacemaker implantation site demonstrates a small hematoma), No no murmurs, No no rubs, No no gallops, No jugular vein distention Peripheral Pulses: 2+: carotid (R), carotid (L) Respiratory: no crackles, no wheezes, reduced air movement, No inspiratory crackles ICD10 Worksheet Patient Problems: Problems Problem Status Onset Atrial fibrillation Acute Chronic obstructive pulmonary disease with acute exacerbation Acute Bradycardia Acute Hyperkalemia Acute Chest pain Acute
[2016-07-08] MEDS: CEFEPIME HCL 2 GM in D5W 100 ML IV SCH ×2 (09:14→21:03)
[2016-07-08] MEDS: CALCIUM CARB W/VIT D 500 MG TAB PO SCH ×2 (09:22→09:53)
[2016-07-08] MEDS: DILTIAZEM CD 120 MG CAP PO SCH ×2 (09:22→20:44)
[2016-07-08] MEDS: PRESERVISION AREDS2 FORMULA EYE VIT 1 EACH PO SCH (09:23)
[2016-07-08] MEDS: FERROUS SULFATE 325 MG TAB PO SCH (09:23)
[2016-07-08] MEDS: METOPROLOL TARTRATE 25 MG TAB PO SCH ×2 (09:23→20:43)
[2016-07-08] MEDS: MULTIVITAMINS 1 EACH TAB PO SCH (09:24)
[2016-07-08] MEDS: MAGNESIUM OXIDE 400 MG TAB PO SCH (09:25)
[2016-07-08] MEDS: PROPAFENONE HCL SR 325 MG CAP PO SCH ×2 (09:25→20:44)
[2016-07-08] MEDS: CHOLECALCIFEROL VIT D3 2,000 UNITS TAB/CAP PO SCH ×2 (09:25→09:53)
[2016-07-08] MEDS: PANTOPRAZOLE SODIUM 40 MG TAB PO SCH (09:25)
[2016-07-08] MEDS: SENNOSIDES/DOCUSATE SODIUM TAB PO SCH ×2 (09:26→20:45)
[2016-07-08] MEDS: POLYETHYLENE GLYCOL 3350 17 GM PKT PO PRN (09:26)
[2016-07-08] MEDS: FLUTICASONE/SALMETER 250/50MCG DISKUS IH SCH ×2 (10:21→23:15)
--- NOTE | 2016-07-08 15:29 | PDINTPN ---
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 She was rate controlled but developed hypotension and bradycardia, requiring a pacemaker 07/06. She has a known history of IPF as well as PH (but normal RV size and function), and was adnitted with a respiratory acidosis. She was getting lasix but this was held after her serum HCO3 started to rise. * Acute on chronic respiratory failure with hypercapnea- likely a combination of IPF, bronchiectasis, and added CHF in a patient with little respiratory reserve. More alert and stable from a respiratory standpoint today. * Bronchiectasis with sputum cx growing Pseudomonas. Her WBC has been decreasing and she remains on Cefepime, which should be adequate. I dont think infection is causing her current decline in respiratory status. Agree with mucomyst, Advair, nebs, and flutter valve. She apparently did not tolerate a vest earlier this hospital stay. I don't see steroids on her MAR at the moment, but am not sure she needs this now. If she fails to improve, I would reconsider. * DNR- I had a detailed discussion with her and her today at bedside. She has reconsidered her status and wants to be a full DNR, recognizing that the change would not likely result in any change in her current management. I agree with the DNR. * PH- the cause is multifactorial but not contributing to her current situation. She is not a candidate for PAH-specific therapy. * Dispo: she and her family were at bedside this am when I came to visit, and requested a discussion about hospice care. She made it clear to me that she had reached her limit as to what she can tolerate, without any prompting from me. I thought this was reasonable and alerted Case management and her nurse about it. 07/08/16 15:26 Objective: Vital Signs Temp Pulse Resp BP Pulse Ox 36.5 C 121 H 29 H 119/66 98 07/08/16 13:25 07/08/16 13:25 07/08/16 13:25 07/08/16 13:25 07/08/16 13:25 Laboratory Results 07/08/16 06:00 07/08/16 06:00 04/18/17 04/19/17 04/20/17 05:59 05:59 05:59 Intake Total 1165 932 100 Output Total 4925 1095 600 Balance -5 -234 -500 PT 13.8 SEC (12.0-15.0) 07/06/16 10:10 INR 1.07 (0.83-1.16) 07/06/16 10:10 Physical Exam - Physical Exam General Appearance: alert, no apparent distress EENT: PERRL/EOMI Neck: full range of motion, supple Respiratory: chest non-tender, decreased breath sounds Cardiac/Chest: normal peripheral pulses, regular rate, rhythm, No edema Abdomen: normal bowel sounds, non-tender, soft Skin: normal color, warm/dry Lymphatic: no adenopathy Extremities: No pedal edema Neuro/Psych: alert, normal mood/affect, oriented x 3 ICD10 Worksheet Patient Problems: Problems Problem Status Onset Bradycardia Acute Chest pain Acute Hyperkalemia Acute Atrial fibrillation Acute Chronic obstructive pulmonary disease with acute exacerbation Acute
--- NOTE | 2016-07-08 15:35 | PDPCPN ---
Palliative Care Progress Note Assessment/Plan: Referring provider: Dr Osorio Reason for consult: Complex medical decision making Symptom control HPI: Virginia Angeles is a 80 yo female with PMH COPD, a fib, pul HTN, pul fibrosis, and recent admission with discharge 06/24 for bronchiectasis and marroquin virus admitted to the hospital for increased weakness, dyspnea, and cough. On admission with a fib RVR with SSS s/p pacemaker placement Wednesday. Hospitalization complicated by ongoing acute on chronic resp failure, hyponatremia, and acidosis. Palliative care consulted for complex medical decision making. Met with son, daughter, DIL, , and academic affairs specialist at the bedside with Virginia. Virginia stated "this is too hard". She feels every night she has dyspnea, anxiety and wonders if tonight will be her last night. Last night she stated due to dyspnea she wanted to and felt like she didn't know how to stop breathing. She had a lot of questions and thoughts around how much longer she would live and when would come. She had hoped the pacemaker was going to "fix everything" so that she could get back to her independent life. She feels she now understands her tenuous medical situation and does not want to prolong her poor quality of life. We discussed options including hospice care. She wants to focus on comfort measures and less medical interventions that will offer no benefit for her. Support her and her family around end of life decisions. Assessment: Physical: - Dyspnea: - nebs scheduled - oxygen as needed - encourage use of hycodan for SOB or cough as needed - Poor appetite: - general diet as tolerated - constipation - at risk while using opiates - senna and colace with bowel regimen Emotional/psychological: Has a lot of support from her Screen Vent Binder. Anxiety: treat for dyspnea as above - a fan can also sometimes help subjective dyspnea Advanced Care Planning: Is patient decisional?: yes Code Status: DNR/DNI POA: unsure who is MDPOA. Plan: Virginia would like to focus mostly on comfort. She would like to be at home and has requested hospice eval planned for tomorrow. 07/08/16 16:40 Subjective: I'm tired Objective: Social History: to [place] for about 60 years. Has 1 daughter and 1 son very involved. Medication list reviewed ROS: General: fatigue, weakness ENT: negative Resp: dyspnea, cough GI: poor appetite : negative MS: negative Skin:negative Neuro: negative Psych: anxiety Functional assessment: PPS: 40% Functional status: dependent on ADLs, IADLs Vital Signs Temp Pulse Resp BP Pulse Ox 36.5 C 121 H 29 H 119/66 98 07/08/16 13:25 07/08/16 13:25 07/08/16 13:25 07/08/16 13:25 07/08/16 13:25 Laboratory Results 07/08/16 06:00 07/08/16 06:00 07/07/16 07/08/16 07/09/16 05:59 05:59 05:59 Intake Total 1165 932 100 Output Total 3225 1095 600 Balance -3160 -163 -500 PT 13.8 SEC (12.0-15.0) 07/06/16 10:10 INR 1.07 (0.83-1.16) 07/06/16 10:10 Physical Exam - Physical Exam General Appearance: alert, no apparent distress Respiratory: respiratory distress (mild), decreased breath sounds, No accessory muscle use Skin: normal color, warm/dry Extremities: No pedal edema Neuro/Psych: alert, oriented x 3 ICD10 Worksheet Patient Problems: Problems Problem Status Onset Bradycardia Acute Chest pain Acute Hyperkalemia Acute Palliative care encounter Acute Atrial fibrillation Acute Chronic obstructive pulmonary disease with acute exacerbation Acute - ICD10 Problem Qualifiers (1) Palliative care encounter
--- NOTE | 2016-07-08 16:18 | HOSPPROG ---
Hospitalist Progress Note Assessment/Plan: #Atrial fib with RVR: with sick sinus, s/p pacemaker * medications being adjusted by Cardiology but difficult to control * acute on chronic respiratory failure * multifactorial secondary to bronchiectasis, Pseudomonas bronchitis, probable fluid overload * acute on chronic respiratory acidosis * discussed with pulmonology * will hold off on further Diamox * I believe her worsening alkalosis is probably in part related to diuresis over the last several days #Acute exacerbation of bronchiectasis: + Pseudomonas. Resistant to LQ. 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 hospice evaluation has been ordered and they will meet with patient tomorrow. Subjective: feels tired and would like to consider hospice Objective: Vital Signs Temp Pulse Resp BP Pulse Ox 36.5 C 121 H 29 H 119/66 98 07/08/16 13:25 07/08/16 13:25 07/08/16 13:25 07/08/16 13:25 07/08/16 13:25 Laboratory Results 07/08/16 06:00 07/08/16 06:00 07/07/16 07/08/16 07/09/16 05:59 05:59 05:59 Intake Total 1165 932 100 Output Total 3225 1095 600 Balance -2060 -163 -500 PT 13.8 SEC (12.0-15.0) 07/06/16 10:10 INR 1.07 (0.83-1.16) 07/06/16 10:10 - Physical Exam Constitutional: chronically ill appearing Eyes: anicteric sclera, EOMI Ears, Nose, Mouth, Throat: moist mucous membranes, hearing normal Cardiovascular: irregularly irregular, tachycardia, edema (1+) Respiratory: expiratory wheeze, inspiratory crackles (scattered), respiratory distress (moderate) Gastrointestinal: normoactive bowel sounds, soft, non-tender abdomen, no palpable masses Skin: warm Neurologic: AAOx3 Psychiatric: interacting appropriately, not anxious, not encephalopathic, thought process linear ICD10 Worksheet Patient Problems: Problems Problem Status Onset Bradycardia Acute Chest pain Acute Hyperkalemia Acute Palliative care encounter Acute Atrial fibrillation Acute Chronic obstructive pulmonary disease with acute exacerbation Acute
[2016-07-08] MEDS: ASPIRIN 81 MG CHEWABLE TAB PO SCH (20:42)
[2016-07-08 20:46] VITALS: O2SAT 99
[2016-07-08] MEDS: LATANOPROST 0.005% 2.5 ML OPHT DROPS EACHEYE SCH (20:51)
[2016-07-09] MEDS: ACETYLCYSTEINE 10% 30 ML VIAL IH SCH ×3 (01:02→10:30)
[2016-07-09] MEDS: PROPAFENONE HCL SR 325 MG CAP PO SCH (08:25)
[2016-07-09] MEDS: DILTIAZEM CD 120 MG CAP PO SCH (08:33)
[2016-07-09] MEDS: METOPROLOL TARTRATE 25 MG TAB PO SCH (08:33)
[2016-07-09] MEDS: FERROUS SULFATE 325 MG TAB PO SCH (08:36)
[2016-07-09] MEDS: PRESERVISION AREDS2 FORMULA EYE VIT 1 EACH PO SCH (08:36)
[2016-07-09] MEDS: CALCIUM CARB W/VIT D 500 MG TAB PO SCH (08:36)
[2016-07-09] MEDS: CHOLECALCIFEROL VIT D3 2,000 UNITS TAB/CAP PO SCH (08:36)
[2016-07-09] MEDS: CEFEPIME HCL 2 GM in D5W 100 ML IV SCH (08:36)
[2016-07-09] MEDS: PANTOPRAZOLE SODIUM 40 MG TAB PO SCH (08:37)
[2016-07-09] MEDS: SENNOSIDES/DOCUSATE SODIUM TAB PO SCH (08:37)
[2016-07-09] MEDS: MULTIVITAMINS 1 EACH TAB PO SCH (08:37)
[2016-07-09] MEDS: MAGNESIUM OXIDE 400 MG TAB PO SCH (08:37)
[2016-07-09 10:14] VITALS: BP 121/81; PULSE 108; RESP 28; TEMP 97.7
[2016-07-09] MEDS: FLUTICASONE/SALMETER 250/50MCG DISKUS IH SCH (10:30)
--- NOTE | 2016-07-09 11:29 | HOSPPROG ---
Hospitalist Progress Note Assessment/Plan: Atrial fib with RVR: with sick sinus, s/p pacemaker * medications being adjusted by Cardiology but difficult to control * will dc on diltiazem and metoprolol and let hospice MD adjust * acute on chronic respiratory failure * multifactorial secondary to bronchiectasis, Pseudomonas bronchitis, probable fluid overload * no further diuresis * acute on chronic respiratory acidosis * discussed with pulmonology * will hold off on further Diamox * I believe her worsening alkalosis is probably in part related to diuresis over the last several days #Acute exacerbation of bronchiectasis: + Pseudomonas. Resistant to LQ. 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 questions answered Objective: Vital Signs Temp Pulse Resp BP Pulse Ox 36.5 C 108 H 28 H 121/81 H 99 07/09/16 08:50 07/09/16 08:50 07/09/16 08:50 07/09/16 08:50 07/09/16 08:50 Laboratory Results 07/08/16 06:00 07/08/16 06:00 07/08/16 07/09/16 07/10/16 05:59 05:59 05:59 Intake Total 932 620 Output Total 1095 1200 Balance -163 -580 PT 13.8 SEC (12.0-15.0) 07/06/16 10:10 INR 1.07 (0.83-1.16) 07/06/16 10:10 - Physical Exam Constitutional: no apparent distress, appears nourished Eyes: PERRL, anicteric sclera Ears, Nose, Mouth, Throat: moist mucous membranes, hearing normal Cardiovascular: no murmur, rub, or gallop, systolic murmur Respiratory: no respiratory distress Gastrointestinal: normoactive bowel sounds, soft, non-tender abdomen Genitourinary: No peña in urethra Skin: warm Musculoskeletal: no muscle tenderness Neurologic: AAOx3 ICD10 Worksheet Patient Problems: Problems Problem Status Onset Bradycardia Acute Chest pain Acute Hyperkalemia Acute Palliative care encounter Acute Atrial fibrillation Acute Chronic obstructive pulmonary disease with acute exacerbation Acute
--- NOTE | 2016-07-09 12:00 | GDS ---
[f rep st] DISCHARGE SUMMARY DISCHARGE DIAGNOSES: 1. Bronchiectasis. 2. Pseudomonal bronchitis. 3. Rapid atrial fibrillation with bradycardia. 4. Sick sinus syndrome status post pacemaker. 5. Chronic respiratory acidosis. 6. Metabolic alkalosis in the setting of diuresis. 7. Acute on chronic hypoxemic respiratory failure. 8. Hypercarbic respiratory failure. 9. Hyponatremia. 10. Hypertension. 11. Osteoporosis. CONSULTS DURING THIS ADMISSION: Pulmonology and Cardiology as well as Palliative Care. HOSPITAL COURSE: Patient was admitted to the hospital on the after having been discharged from here on the , worsening shortness of breath, rapid atrial fibrillation. She previously had dioni na virus infection, and sputum from the grew out Pseudomonas. The patient underwent pacemaker placement and diuresis here. She continued to feel poorly and ultim ately decided that given her anxiety over her poor breathing and the failure to have significant imp rovement with the pacemaker, she desires hospice. The patient clearly states she is ready to . She is [facility] to [facility] with inpatient hospice services. Numerous medications have been dis continued. However, I have continued her rate control medications. This can be adjusted at the dis cretion of the hospice physician. /[id number]/MODL
--- NOTE | 2016-07-09 12:41 | PDIAF ---
- Diagnosis Diagnosis: atrial fibrillation, chronic respiratory failure Code Status: Do Not Resuscitate - Medication Management Discharge Medications: Medications to Continue on Transfer Albuterol [Proventil Inhaler HFA (*)] 2 puffs IH BID PRN 09/23/11 [Last Taken ] Calcium Carb W/Vit D [Calcium Carb W/Vit D 500/200 (*)] 1,000 mg PO DAILY [Last Taken 07/17/12] Fluticasone/Salmeterol [Advair 250-50 Diskus] 1 each IH DAILY PRN 09/23/11 [ Last Taken 07/18/12 03:00] Latanoprost 0.005% [Xalatan 0.005% (*)] 1 drop EACHEYE DAILY18 09/23/11 [Last Taken 07/17/12] Aflibercept [Eylea] 2 mg IO AD 06/19/16 [Last Taken 05/25/16] Estrogens,Conjugated [Premarin Vaginal (*)] 1 daniel VAG SUTH 06/19/16 [Last Taken Unknown] Fluticasone/Salmeter 250/50Mcg [Advair 250/50 (*)] 1 puffs IH BID 06/19/16 [ Last Taken Unknown] Herbals/Supplements -Info Only 1 ea PO DAILY 06/19/16 [Last Taken Unknown] Hydrocodone Bit/Homatropine [Hydromet Syrup] 5 - 10 ml PO DAILY PRN 06/19/16 [ Last Taken Unknown] Propafenone HCl Sr [Rythmol Sr 325mg (*)] 325 mg PO Q12HRS #60 cap 06/24/16 [ Last Taken 06/29/16] Acetaminophen [Tylenol 325mg (*)] 650 mg PO Q4HRS PRN #0 tab 07/09/16 [Last Taken Unknown] Diltiazem Cd [Cardizem ER 120 MG (*)] 240 mg PO BID #0 cap 07/09/16 [Last Taken Unknown] Metoprolol Tartrate [Lopressor 25 mg (*)] 25 mg PO BID #0 tab 07/09/16 [Last Taken Unknown] Discharge Medications: Refer to the Discharge Home Medication list for PRN reason. - Orders Services needed: Registered Nurse, Physical Therapy, Occupational Therapy - Follow Up Care Current Providers and Referrals: Lauryn Schultz MD [Primary Care Provider] - As per Instructions
== END 2016-07-09 15:43 | disposition hospice, home (50) | DRG 242 ==
LOC: EDUNIT# → OBSVTOIN 17:33 → F2N 20:01 → F2W 07-02 12:10
PROVIDERS: ADMIT Internal Medicine; ATTEND Internal Medicine
PROC: 02HV33Z Insertion of Infusion Device into Superior Vena Cava, Percutaneous Approach (ICD-10-PCS; 2016-06-30)
PROC: 02HK3JZ Insertion of Pacemaker Lead into Right Ventricle, Percutaneous Approach (ICD-10-PCS; principal; 2016-07-06)
PROC: 0JH604Z Insertion of Pacemaker, Single Chamber into Chest Subcutaneous Tissue and Fascia, Open Approach (ICD-10-PCS; principal; 2016-07-06)
DX: I48.0 Paroxysmal atrial fibrillation (principal); J96.21 Acute and chronic respiratory failure with hypoxia; J96.92 Respiratory failure, unspecified with hypercapnia; J47.1 Bronchiectasis with (acute) exacerbation; E87.4 Mixed disorder of acid-base balance; E87.1 Hypo-osmolality and hyponatremia; I49.5 Sick sinus syndrome; I11.0 Hypertensive heart disease with heart failure; M81.0 Age-related osteoporosis without current pathological fracture; J84.10 Pulmonary fibrosis, unspecified; I27.2 Other secondary pulmonary hypertension; K44.9 Diaphragmatic hernia without obstruction or gangrene; I50.9 Heart failure, unspecified; E87.5 Hyperkalemia; B96.5 Pseudomonas (aeruginosa) (mallei) (pseudomallei) as the cause of diseases classified elsewhere; Z99.81 Dependence on supplemental oxygen; Z66 Do not resuscitate
CPT/HCPCS: 82947-QW; 96374; 97110-GP; 97116-GP; 97162-GP; 97165-GO; 97530-GP; 97535-GO; C1751; C1786; C1898; G8978-GP-CJ; G8979-GP-CI; G8987-GO-CK; G8988-GO-CI; J0461; J0610; J0690; J0692; J1265; J1650; J1815; J2250; J2370; J2405; J2704; J2997; Q9967